=== PATIENT | male | born 1960 | race Caucasian/White ===

== ENCOUNTER 2020-12-24 09:54 | Inpatient (IN) | payer MEDICARE ==
[2020-12-24] MEDS ORDERED: SODIUM CHLORIDE 0.9% 500 ML 500 ML IV STA (12:29)
[2020-12-24] MEDS ORDERED: ALBUTEROL HFA INHALER INHALATION STA (12:29)
[2020-12-24] MEDS ORDERED: DEXAMETHASONE SOD PHOSPHATE 10 MG/ML 1 ML VIAL IV STA (12:30)
--- NOTE | 2020-12-24 13:11 | XR ---
EXAMINATION TYPE: XR chest 1V portable DATE OF EXAM: 12/24/2020 HISTORY: Shortness of breath. COMPARISON: None. TECHNIQUE: Single view of the chest is submitted. FINDINGS: Demonstrated are scattered senescent parenchymal change. Consolidation right upper lobe compatible with pneumonia or aspiration pneumonia. Mild strandy densit y left lower lobe. The heart is stable. Hilar and mediastinal structures are within normal limits. Degenerative changes are seen of the dorsal spine. IMPRESSION: 1. Consolidation right upper lobe compatible with pneumonia or aspiration pneumonia. Mild strandy de nsity left lower lobe.
[2020-12-24 13:18] LABS: Albumin 3.8 g/dL (3.5-5.0); Calcium 8.9 mg/dL (8.4-10.2); Total Bilirubin 0.9 mg/dL (0.2-1.3); Total Protein 6.9 g/dL (6.3-8.2)
[2020-12-24 13:21] LABS: INR 1.1 (<1.2); Partial Thromboplastin Time 30.5 sec (22.0-30.0); Prothrombin Time 11.1 sec (9.0-12.0)
[2020-12-24 13:31] LABS: HGB 18.2 gm/dL (13.0-17.5); MCH 29.4 pg (25.0-35.0); MCHC 33.8 g/dL (31.0-37.0); MCV 87.1 fL (80.0-100.0); Mean Platelet Volume 10.2; Platelet Count 137 k/uL (150-450); RDW 13.6 % (11.5-15.5); WBC 4.4 k/uL (3.8-10.6)
[2020-12-24] MEDS ORDERED: AZITHROMYCIN 500 MG in SODIUM CHLORIDE 0.9% 250 ML IVPB STA (13:31)
[2020-12-24] MEDS ORDERED: cefTRIAXone IN SWFI 1,000 MG/10 ML SYRINGE IVP STA (13:31)
[2020-12-24 13:32] LABS: Magnesium 1.9 mg/dL (1.6-2.3); Potassium 4.5 mmol/L (3.5-5.1)
--- NOTE | 2020-12-24 13:34 | ED ---
General Adult HPI - General Chief complaint: Shortness of Breath Stated complaint: Fever, CHARLES, laryngectomy Time Seen by Provider: 12/24/20 12:26 Source: patient, RN notes reviewed, old records reviewed Mode of arrival: wheelchair Limitations: no limitations - History of Present Illness Initial comments: 60-year-old male history of laryngeal cancer status post tracheostomy presenting for evaluation of cough, fever, dyspnea. Patient has had a known exposure to coronavirus. He has had increased symptoms over the past several days. He's had a productive cough with yellow-brown sputum. Patient has been vaccinated for coronavirus. - Related Data Home Medications Medication Instructions Recorded Confirmed Levothyroxine Sodium [Euthyrox] 88 mcg PO DAILY 12/24/20 12/24/20 Losartan Potassium [Cozaar] 50 mg PO DAILY 12/24/20 12/24/20 Omeprazole 40 mg PO DAILY 12/24/20 12/24/20 Allergies Allergy/AdvReac Type Severity Reaction Status Date / Time No Known Allergies Allergy Verified 12/24/20 13:28 Review of Systems ROS Statement: Those systems with pertinent positive or pertinent negative responses have been documented in the HPI. ROS Other: All systems not noted in ROS Statement are negative. Past Medical History Additional Past Medical History / Comment(s): larynectomy History of Any Multi-Drug Resistant Organisms: None Reported Past Surgical History: Hernia Repair Past Psychological History: No Psychological Hx Reported Smoking Status: Former smoker Past Alcohol Use History: None Reported Past Drug Use History: None Reported General Exam Limitations: no limitations General appearance: alert, in no apparent distress Head exam: Present: atraumatic, normocephalic Eye exam: Present: normal appearance, PERRL ENT exam: Present: normal exam Neck exam: Present: normal inspection. Absent: tenderness, meningismus Respiratory exam: Present: respiratory distress, wheezes, rhonchi, decreased breath sounds Cardiovascular Exam: Present: normal rhythm, tachycardia GI/Abdominal exam: Present: soft. Absent: distended, tenderness, guarding, rebound Extremities exam: Present: normal inspection, normal capillary refill. Absent: pedal edema, calf tenderness Neurological exam: Present: alert, oriented X3, CN II-XII intact. Absent: motor sensory deficit Psychiatric exam: Present: normal affect, normal mood Skin exam: Present: warm, dry, intact. Absent: cyanosis, diaphoretic Course Vital Signs 12/24/20 12:18 Temperature 99.2 F Pulse Rate 110 H Respiratory 18 Rate Blood Pressure 76/48 O2 Sat by Pulse 85 L Oximetry EKG Findings - EKG Comments: EKG Findings:: EKG: Sinus tachycardia, rate 111, tremor artifact, no ST segment elevation, SD interval 134, QRS duration 88, QTC 418 Medical Decision Making - Medical Decision Making 60-year-old male presenting with cough, fever, known exposure to coronavirus. X-ray performed showing bilateral pneumonia, worse consolidation in the right upper lung galvan concerning for possible bacterial pneumonia. Patient is given antibiotics in the emergency department, fluid resuscitation. He has an elevated hemoglobin and elevated creatinine, suspected degree of dehydration. His lactic acid is 5.5. He has a minimal troponin elevation which will be trended. Case discussed with Dr. Tran, who will admit. - Lab Data Result diagrams: 12/24/20 12:41 12/24/20 12:41 Lab Results 12/24/20 12/24/20 12/24/20 Range/Units 12:41 12:41 12:41 WBC 4.4 (3.8-10.6) k/uL RBC 6.20 H (4.30-5.90) m/uL Hgb 18.2 H (13.0-17.5) gm/dL Hct 54.0 H (39.0-53.0) % MCV 87.1 (80.0-100.0) fL MCH 29.4 (25.0-35.0) pg MCHC 33.8 (31.0-37.0) g/dL RDW 13.6 (11.5-15.5) % Plt Count 137 L (150-450) k/uL MPV 10.2 PT 11.1 (9.0-12.0) sec INR 1.1 (<1.2) APTT 30.5 H (22.0-30.0) sec Sodium 138 (137-145) mmol/L Potassium 4.5 (3.5-5.1) mmol/L Chloride 103 (98-107) mmol/L Carbon Dioxide 19 L (22-30) mmol/L Anion Gap 16 mmol/L BUN 32 H (9-20) mg/dL Creatinine 2.29 H (0.66-1.25) mg/dL Est GFR (CKD-EPI)AfAm 34 (>60 ml/min/1.73 sqM) Est GFR (CKD-EPI)NonAf 30 (>60 ml/min/1.73 sqM) Glucose 119 H (74-99) mg/dL Plasma Lactic Acid Shaun (0.7-2.0) mmol/L Calcium 8.9 (8.4-10.2) mg/dL Magnesium 1.9 (1.6-2.3) mg/dL Total Bilirubin 0.9 (0.2-1.3) mg/dL AST 116 H (17-59) U/L ALT 60 H (4-49) U/L Alkaline Phosphatase 61 (38-126) U/L Troponin I (0.000-0.034) ng/mL Total Protein 6.9 (6.3-8.2) g/dL Albumin 3.8 (3.5-5.0) g/dL Coronavirus (PCR) (Not Detectd) 12/24/20 12/24/20 12/24/20 Range/Units 12:41 12:41 12:41 WBC (3.8-10.6) k/uL RBC (4.30-5.90) m/uL Hgb (13.0-17.5) gm/dL Hct (39.0-53.0) % MCV (80.0-100.0) fL MCH (25.0-35.0) pg MCHC (31.0-37.0) g/dL RDW (11.5-15.5) % Plt Count (150-450) k/uL MPV PT (9.0-12.0) sec INR (<1.2) APTT (22.0-30.0) sec Sodium (137-145) mmol/L Potassium (3.5-5.1) mmol/L Chloride (98-107) mmol/L Carbon Dioxide (22-30) mmol/L Anion Gap mmol/L BUN (9-20) mg/dL Creatinine (0.66-1.25) mg/dL Est GFR (CKD-EPI)AfAm (>60 ml/min/1.73 sqM) Est GFR (CKD-EPI)NonAf (>60 ml/min/1.73 sqM) Glucose (74-99) mg/dL Plasma Lactic Acid Shaun 5.5 H* (0.7-2.0) mmol/L Calcium (8.4-10.2) mg/dL Magnesium (1.6-2.3) mg/dL Total Bilirubin (0.2-1.3) mg/dL AST (17-59) U/L ALT (4-49) U/L Alkaline Phosphatase (38-126) U/L Troponin I 0.038 H* (0.000-0.034) ng/mL Total Protein (6.3-8.2) g/dL Albumin (3.5-5.0) g/dL Coronavirus (PCR) Detected A (Not Detectd) Critical Care Time Critical Care Time: Yes Total Critical Care Time: 35 Disposition Clinical Impression: COPD (chronic obstructive pulmonary disease), Pneumonia, COVID-19, TETE (acute kidney injury) Disposition: ADMITTED IP TO THIS [facility] Condition: Serious Is patient prescribed a controlled substance at d/c from ED?: No Referrals: Diego Jones MD [Primary Care Provider] - 1-2 days Decision to Admit Reason: Admit from EC Decision Date: 12/24/20 Decision Time: 14:21
[2020-12-24] MEDS ORDERED: NALOXONE 0.4 MG/ML 1 ML VIAL IV PRN (14:17)
[2020-12-24] MEDS ORDERED: ACETAMINOPHEN TAB 325 MG TAB PO PRN (14:17)
[2020-12-24 14:28] LABS: Band Neutrophils % 15 %; Lymphocytes # (M) 0.22 k/uL (1.0-4.8); Metamyelocytes # (M) 0.26 k/uL (0); Metamyelocytes % 6 %; Monocytes # (M) 0.13 k/uL (0-1.0); Neutrophils % (M) 72 %; Nucleated Red Blood Cells 0 /100 WBC (0-0); Total Cells Counted 200
[2020-12-24] MEDS: SODIUM CHLORIDE 0.9% 1,000 ML IV SCH (14:44)
[2020-12-24] MEDS ORDERED: methylPREDNISolone SOD SUCCI 125 MG/2 ML VIAL IV SCH (16:00)
[2020-12-24] MEDS ORDERED: SODIUM CHLORIDE 0.9% 2,000 ML IV ONE (16:04)
--- NOTE | 2020-12-24 16:21 | P.HPIM ---
History of Present Illness H&P Date: 12/24/20 History of present illness 60 years old male with past medical history of laryngeal cancer status post laryngectomy and radiation in 2015 status post tracheostomy, history of hypothyroidism, COPD, hypertension comes in with acute shortness of breath associated with cough with phlegm production, reddish to brownish in color, associated with fever or chills and fatigue. Patient states his grandchildren were sick and he caught the infection from them. He also endorses right-sided chest pain on deep breath. Patient was noted to be afebrile pulse of 110 respiratory rate 18 blood pressure 76/48 oxygen saturation 85% on room air. Oxygen improved to 92% on trach ordered. EKG was obtained patient was sinus tachycardia no ST segment deviation noted with QTc interval of 418. Chest x-ray 12/24 suggestive of mild strandy density left lower lobe with was consolidation involving the right upper lung concerning for overlying bacterial pneumonia. Labs reviewed suggested of a visible 4.4 hemoglobin 18.2 platelets 137 INR 1.1 bicarb 19 BUN 32 creatinine 2.29, lactic acid of 5.5 AST 116 ALT 60 troponin 0.238. COVID is positive. We will give the patient will complete total 3 L IV bolus of normal saline. One dose of Rocephin and azithromycin. Neck ER. Pulmonary is consulted. Patient initiated on Solu-Medrol 60 every 6. DuoNeb will be continued as needed for shortness of breath. Patient will be initiated on remdesivir. Cardiology was consulted with increase in troponin. ROS Constitutional: Endorses chills, fever, increased lethargy and decreased appetite Denies weight loss Eyes: denies decreased vision, denies diplopia, denies discharge, denies pain Ears: deny: decreased hearing Ears, nose, mouth and throat: Denies dental pain, Denies headache, Denies nasal discharge, Denies nose pain endorses difficulty with speech since laryngectomy Cardiovascular: Endorses right-sided chest pain on deep breath, endorses decreased exercise tolerance, Denies edema, Denies high blood pressure, Denies irregular heart beat, endorses palpitations, Denies paroxysmal nocturnal dyspnea, Denies rapid heart beat, endorses shortness of breath Respiratory: Endorses congestion, endorses cough with sputum production and dyspnea, endorses wheezingnge in bowel habits, Denies coffee ground emesis, Denies early satiety, Denies excessive gas, Denies heartburn, Denies hematemesis, Denies hematochezia, Denies loss of appetite, Denies nausea, Denies vomiting Genitourinary: Denies dysuria, Denies flank pain, Denies kidney stones, Denies menorrhagia, Denies urgency, Denies urinary frequency Musculoskeletal: Denies gait dysfunction, Denies limitation of motion, Denies morning stiffness, Denies muscle cramps Integumentary: Denies rash, Denies wounds, Denies brittle nails, Denies change in hair/nails, Denies darkening of skin Neurological: Denies balance difficulties, Denies change in speech, Denies double vision, Denies gait dysfunction, Denies loss of vision, Denies motor disturbance, Denies numbness, Denies paralysis, Denies paresthesias, Denies seizures Psychiatric: Denies anxiety, Denies depression Endocrine: Denies excessive sweating, Denies excessive thirst, Denies high blood sugars, Denies palpitations Hematologic/Lymphatic: Denies easy bruising, Denies lymphadenopathy Social history lives with his used to smoke 1 pack a day for 40 years quit 5 years ago denies any alcohol use or marijuana use Family history mother had MS father had multiple heart attacks patient had 3 brothers one of AIDS, another from drug addiction, one brother had throat cancer. One sister of suicide Patient has 2 sons with no medical problem Physical exam - Constitutional General appearance: cooperatiappears in appears as stated age, with tracheostomy wearing trach collar - EENT Eyes: anicteric sclerae, PERRLA, normal appearance ENT: hearing grossly normal - Neck Neck: no lymphadenopathy, normal ROM, no other, no rigidity, no stridor, no thyromegaly - Respiratory Respiratory: bilateral decreased air entry with crackles and rhonchi worse involving right upper lung - Cardiovascular Rhythm: tachycardiceart sounds: normal: S1, S2 Abnormal Heart Sounds: no systolic murmur, no diastolic murmur, no rub, no S3 Gallop, no S4 Gallop, no click, no other - Gastrointestinal General gastrointestinal: normal bowel sounds, soft nontender - Integumentary Integumentary: no rash - Neurologic Neurologic: CNII-XII intact no motor or sensory deficit - Musculoskeletal Musculoskeletal: gait normal, strength equal bilaterally - Psychiatric Psychiatric: A&O x's 3, appropriate affect Assessment and plan #1 septic shock secondary to COVID pneumonia with possible overlying bacterial pneumonia. 3 L IV fluids normal saline given. Antibiotics ceftriaxone and azithromycin given. Patient initiated on Solu-Medrol 60 IV every 6. patient need to be started on remdesiver . Pulmonary consult. Sputum culture. DuoNeb as needed for shortness of breath. Mucinex 600 twice a day. Lactic acid repeat every 6 hours Pulmicort twice daily #2 COVID pneumonia , would benefit from remdesivir. Pulmicort twice daily. Vitamin D, zinc and vitamin C ordered. Pulmonary consulted for further management. Solu-Medrol initiated a 60 IV every 6 hours #3 acute COPD exacerbation Pulmicort twice daily inhaler, DuoNeb as needed for shortness of breath, incentive spirometry, sputum culture. Continue Solu-Medrol 60 IV every 6 hours #4 troponin elevation rule out ACS. EKG dated the first ST elevation depression. Likely type II myocardial infarction. Cardiology consulted. #5 hypothyroidism continue levothyroxine at 88 g by mouth daily #6 hypertension continue losartan 50 mg by mouth daily #7 GERD continue omeprazole 40 mg by mouth daily #8 history of laryngeal cancer status post laryngectomy and radiation . Has tracheostomy currently on trach collar #9 acute kidney injury on CK D3. Baseline creatinine not known. Continue IV fluids at 75 mL/h repeat labs tomorrow #10 acute transaminitis likely secondary to COVID infection. Continue to monitor. #11 metabolic acidosis secondary to sepsis. Continue IV fluids monitor labs #12 GI prophylaxis on omeprazole 40 mg by mouth daily #13 CODE STATUS full code #14 isolation droplet precautions for COVID #15 DVT prophylaxis heparin every 12 #16 disposition patient need hospital stay for at least 2 inpatient Past Medical History Additional Past Medical History / Comment(s): larynectomy History of Any Multi-Drug Resistant Organisms: None Reported Past Surgical History: Hernia Repair Past Psychological History: No Psychological Hx Reported Smoking Status: Former smoker Past Alcohol Use History: None Reported Past Drug Use History: None Reported Medications and Allergies Home Medications Medication Instructions Recorded Confirmed Type Levothyroxine Sodium [Euthyrox] 88 mcg PO DAILY 12/24/20 12/24/20 History Losartan Potassium [Cozaar] 50 mg PO DAILY 12/24/20 12/24/20 History Omeprazole 40 mg PO DAILY 12/24/20 12/24/20 History Allergies Allergy/AdvReac Type Severity Reaction Status Date / Time No Known Allergies Allergy Verified 12/24/20 13:28 Physical Exam Vitals: Vital Signs Temp Pulse Resp BP Pulse Ox 12/24/20 14:46 104 H 22 97/62 90 L 12/24/20 12:18 99.2 F 110 H 18 76/48 85 L Intake and Output 12/24/20 12/24/20 12/24/20 06:59 14:59 22:59 Other: Weight 103.419 kg Results CBC & Chem 7: 12/24/20 12:41 12/24/20 12:41 Labs: Abnormal Lab Results - Last 24 Hours (Table) 12/24/20 12/24/20 12/24/20 Range/Units 12:41 12:41 12:41 RBC 6.20 H (4.30-5.90) m/uL Hgb 18.2 H (13.0-17.5) gm/dL Hct 54.0 H (39.0-53.0) % Plt Count 137 L (150-450) k/uL Lymphocytes # (Manual) 0.22 L (1.0-4.8) k/uL Metamyelocytes # (Man) 0.26 H (0) k/uL APTT 30.5 H (22.0-30.0) sec Carbon Dioxide 19 L (22-30) mmol/L BUN 32 H (9-20) mg/dL Creatinine 2.29 H (0.66-1.25) mg/dL Glucose 119 H (74-99) mg/dL Plasma Lactic Acid Shaun (0.7-2.0) mmol/L AST 116 H (17-59) U/L ALT 60 H (4-49) U/L Troponin I (0.000-0.034) ng/mL Coronavirus (PCR) (Not Detectd) 12/24/20 12/24/20 12/24/20 Range/Units 12:41 12:41 12:41 RBC (4.30-5.90) m/uL Hgb (13.0-17.5) gm/dL Hct (39.0-53.0) % Plt Count (150-450) k/uL Lymphocytes # (Manual) (1.0-4.8) k/uL Metamyelocytes # (Man) (0) k/uL APTT (22.0-30.0) sec Carbon Dioxide (22-30) mmol/L BUN (9-20) mg/dL Creatinine (0.66-1.25) mg/dL Glucose (74-99) mg/dL Plasma Lactic Acid Shaun 5.5 H* (0.7-2.0) mmol/L AST (17-59) U/L ALT (4-49) U/L Troponin I 0.038 H* (0.000-0.034) ng/mL Coronavirus (PCR) Detected A (Not Detectd)
[2020-12-24] MEDS: CHOLECALCIFEROL 25 MCG (1000 IU) TABLET PO SCH (17:24)
[2020-12-24] MEDS: ASCORBIC ACID 500 MG TAB PO SCH (17:24)
[2020-12-24] MEDS: ZINC SULFATE 220 MG CAP PO SCH (17:24)
[2020-12-24 17:42] LABS: C Reactive Protein 35.7 mg/dL (<1.0)
[2020-12-24] MEDS ORDERED: PIPERACILLIN-TAZOBACTAM 3.375 GM in SODIUM CHLORIDE 0.9% 100 ML IVPB SCH (17:45)
[2020-12-24 18:14] LABS: Glucose,Whole Blood 85 mg/dL (75-99)
--- NOTE | 2020-12-24 18:20 | P.CNPUL ---
History of Present Illness Consult date: 12/24/20 Requesting physician: Shirin Tran Reason for consult: dyspnea, hypoxemia, pneumonia, abnormal CXR/CT Chief complaint: COVID-19 pneumonia, acute hypoxic resp. failure, aspiration pneumonia History of present illness: This is a 60-year-old white male patient past medical history of laryngeal ca ncer (squamous cell carcinoma) with history of laryngectomy and radiation in 2015, status post tracheostomy, history of hypothyroidism, COPD, hypertension. Patient came into the emergency department on 12/24/2020 for evaluation of acute shortness of breath, associated with cough and phlegm production. He is producing reddish to brownish colored phlegm, he had fever, chills and fatigue. Patient states one of his grandchildren was sick, and he believes he may have caught the infection from them. He endorses right-sided chest pain with a deep inspiration. In the emergency department since he was hypotensive with blood pressure of 76/48, and his pulse ox was 70% on room air. He currently has a non-cuffed cannula this inserted into his tracheotomy opening in his neck, he was placed on 92% trach collar, however his pulse ox is still 83%. Patient is audibly congested and short of breath. He is using accessory muscles of breathing. He is using of voice box to respond verbally, he is tachycardic on the monitor, but in sinus mechanism. His chest x-ray showed mild strandy density at the left lower lobe with consolidation involving the right upper lung concerning for bacterial pneumonia possibly aspiration related pneumonia. His labs showed white blood cell count of 4.4, hemoglobin of 18.2, platelets of 137, INR 1.1, BUN of 32, creatinine of 2.29, lactic acid was 5.5, AST was 116, ALT was 60, troponin was 0.238. COVID-19 PCR was positive. Patient was started on fluid resuscitation and will be given a total of 3 L and IV fluid boluses. He was initially started on Rocephin and azithromycin in the emergency department. He was started on IV Solu-Medrol 60 g every 6 hours and nebulized bronchodilators. Is currently still requiring high flow oxygen per trach collar, still remains very hypoxic, and short of breath. He will be transferred to the ICU, and the tracheostomy will be placed and patient will be placed on the mechanical ventilator. Review of Systems All systems: negative Constitutional: Reports fatigue, Reports fever, Reports weakness, Denies chills Eyes: denies blurred vision, denies pain Ears, nose, mouth and throat: Denies headache, Denies sore throat Cardiovascular: Denies chest pain, Denies shortness of breath Respiratory: Reports congestion, Reports cough with sputum, Reports dyspnea, Denies cough Gastrointestinal: Denies abdominal pain, Denies diarrhea, Denies nausea, Denies vomiting Musculoskeletal: Denies myalgias Integumentary: Denies pruritus, Denies rash Neurological: Denies numbness, Denies weakness Psychiatric: Denies anxiety, Denies depression Endocrine: Denies fatigue, Denies weight change Past Medical History Additional Past Medical History / Comment(s): larynectomy History of Any Multi-Drug Resistant Organisms: None Reported Past Surgical History: Hernia Repair Past Psychological History: No Psychological Hx Reported Smoking Status: Former smoker Past Alcohol Use History: None Reported Past Drug Use History: None Reported Medications and Allergies Home Medications Medication Instructions Recorded Confirmed Type Levothyroxine Sodium [Euthyrox] 88 mcg PO DAILY 12/24/20 12/24/20 History Losartan Potassium [Cozaar] 50 mg PO DAILY 12/24/20 12/24/20 History Omeprazole 40 mg PO DAILY 12/24/20 12/24/20 History Allergies Allergy/AdvReac Type Severity Reaction Status Date / Time No Known Allergies Allergy Verified 12/24/20 13:28 Physical Exam Vitals: Vital Signs Temp Pulse Resp BP Pulse Ox 12/24/20 17:30 133 H 33 H 135/85 85 L 12/24/20 17:07 133 H 30 H 85 L 12/24/20 16:40 122 H 18 104/42 86 L 12/24/20 14:46 104 H 22 97/62 90 L 12/24/20 12:18 99.2 F 110 H 18 76/48 85 L Intake and Output 12/24/20 12/24/20 12/24/20 06:59 14:59 22:59 Other: Weight 103.419 kg GENERAL EXAM: Alert, very pleasant, dyspneic, 60-year-old white male, tachypneic, audibly congested, he is using a voice box to communicate, comfortable in no apparent distress. HEAD: Normocephalic/atraumatic. EYES: Normal reaction of pupils, equal size. Conjunctiva pink, sclera white. NOSE: Clear with pink turbinates. THROAT: No erythema or exudates. NECK: No masses, no JVD, no thyroid enlargement, no adenopathy. Midline tracheotomy is present, with the non-cuffed cannula, patient removes for cleaning, is currently on 98% trach collar, with a pulse ox of 83% CHEST: No chest wall deformity. Symmetrical expansion. LUNGS: Equal air entry with diffuse rhonchi and wheezing and crackles CVS: Regular rate and rhythm, normal S1 and S2, no gallops, no murmurs, no rubs ABDOMEN: Soft, nontender. No hepatosplenomegaly, normal bowel sounds, no guarding or rigidity. EXTREMITIES: No clubbing, no edema, no cyanosis, 2+ pulses and upper and lower extremities. MUSCULOSKELETAL: Muscle strength and tone normal. SPINE: No scoliosis or deformity SKIN: No rashes CENTRAL NERVOUS SYSTEM: Alert and oriented -3. No focal deficits, tone is normal in all 4 extremities. PSYCHIATRIC: Alert and oriented -3. Appropriate affect. Intact judgment and insight. Results - Laboratory Findings CBC and BMP: 12/24/20 12:41 12/24/20 12:41 PT/INR, D-dimer PT 11.1 sec (9.0-12.0) 12/24/20 12:41 INR 1.1 (<1.2) 12/24/20 12:41 Abnormal lab findings: Abnormal Labs 12/24/20 12/24/20 12/24/20 12:41 12:41 12:41 RBC 6.20 H Hgb 18.2 H Hct 54.0 H Plt Count 137 L Lymphocytes # (Manual) 0.22 L Metamyelocytes # (Man) 0.26 H ESR APTT 30.5 H Carbon Dioxide 19 L BUN 32 H Creatinine 2.29 H Glucose 119 H Plasma Lactic Acid Shaun AST 116 H ALT 60 H Lactate Dehydrogenase Troponin I C-Reactive Protein Coronavirus (PCR) 12/24/20 12/24/20 12/24/20 12:41 12:41 12:41 RBC Hgb Hct Plt Count Lymphocytes # (Manual) Metamyelocytes # (Man) ESR APTT Carbon Dioxide BUN Creatinine Glucose Plasma Lactic Acid Shaun 5.5 H* AST ALT Lactate Dehydrogenase Troponin I 0.038 H* C-Reactive Protein Coronavirus (PCR) Detected A 10/25/21 10/25/21 10/25/21 16:18 16:33 16:33 RBC Hgb Hct Plt Count Lymphocytes # (Manual) Metamyelocytes # (Man) ESR APTT Carbon Dioxide BUN Creatinine Glucose Plasma Lactic Acid Shaun 5.5 H* AST ALT Lactate Dehydrogenase 1067 H Troponin I 0.061 H* C-Reactive Protein 35.7 H Coronavirus (PCR) 12/24/20 16:33 RBC Hgb Hct Plt Count Lymphocytes # (Manual) Metamyelocytes # (Man) ESR 18 H APTT Carbon Dioxide BUN Creatinine Glucose Plasma Lactic Acid Shaun AST ALT Lactate Dehydrogenase Troponin I C-Reactive Protein Coronavirus (PCR) - Diagnostic Findings Chest x-ray: report reviewed, image reviewed Additional studies: EKG reviewed Assessment and Plan Plan: Assessment: #1. Acute hypoxic respiratory failure, multifactorial, related to with suspected to be aspiration pneumonia, or bacterial pneumonia in addition to COVID-19 pneumonia, onset of symptoms was several days ago. The time of presentation patient is already and severe hypoxic respiratory failure, and in addition aspiration pneumonia is also suspected, not a good candidate for Remdesivir. he tested positive for COVID-19 in the ER. He status post completed vaccination with Moderna vaccine in May 2020 #2. History of laryngectomy for laryngeal cancer (squamous cell carcinoma), status post laryngectomy and radiation in 2014 status post tracheostomy #3. Lactic acidosis related to sepsis, we being fluid resuscitated #4. Septic shock related to pneumonia possibly related to aspiration #5. Acute kidney injury #6. Troponin leak #7. History of COPD #8. Hypertension #9. Hypothyroidism Plan: We'll transfer the patient to the intensive care unit We'll place tracheostomy and we'll put the patient on mechanical ventilator We'll put the patient on sedation continue fluid resuscitation We'll put the patient on Zosyn, patient is not a candidate for Remdesivir GI and DVT prophylaxis Blood gas, follow-up labs and chest x-ray in the morning We'll continue to follow I performed a history & physical examination of the patient and discussed their management with my nurse practitioner, Beth Harris. I reviewed the nurse practitioner's note and agree with the documented findings and plan of care. Lung sounds are positive for diffuse wheezes throughout the lung galvan. The findings and the impression was discussed with the patient. I attest to the documentation by the nurse practitioner. Time with Patient: Greater than 30
[2020-12-24] MEDS ORDERED: CISATRACURIUM 2 MG/ML 5 ML VIAL IV ONE ×2 (18:39→19:00)
[2020-12-24] MEDS ORDERED: HYDROmorphone 1 MG/ML 1 ML SYRINGE IVP PRN (18:52)
--- NOTE | 2020-12-24 19:09 | XR ---
EXAMINATION TYPE: XR chest 1V portable DATE OF EXAM: 12/24/2020 COMPARISON: Today HISTORY: Respiratory failure. Tube placement. TECHNIQUE: Single view FINDINGS: There is endotracheal tube and the tip is well into the right lower lobe bronchus. There is tip 4.5 cm past the didi. There is extensive consolidation right upper lobe. There is some atelect asis and infiltrate in the left lung with shift of heart to the left side. There are chest leads. IMPRESSION: Malposition of the endotracheal tube in the right lower lobe bronchus. There is significa nt new atelectasis in the left lung with infiltrate. No change in the right upper lobe infiltrate.
--- NOTE | 2020-12-24 19:10 | XR ---
EXAMINATION TYPE: XR chest 1V portable DATE OF EXAM: 12/24/2020 COMPARISON: Today HISTORY: Tube placement TECHNIQUE: Single view FINDINGS: Endotracheal tube is in contact with the didi in the right lower lobe bronchus. There is consolidation right upper lobe. There is some infiltrate and atelectasis in the left lung. IMPRESSION: Slight improvement in the infiltrate and atelectasis in the left lung. Malposition of the endotracheal tube at the right mainstem bronchus.
--- NOTE | 2020-12-24 19:12 | XR ---
EXAMINATION TYPE: XR chest 1V portable DATE OF EXAM: 12/24/2020 COMPARISON: Today HISTORY: Tube placement TECHNIQUE: Single view FINDINGS: Endotracheal tube is 5 mm from the didi. There is consolidation in the right upper lobe. There is some infiltrate and atelectasis left lung with some shift of the heart to the left side. No obvious heart failure. IMPRESSION: Bilateral pulmonary infiltrates. Endotracheal tube is low and should BE pulled back 3 cm.
[2020-12-24] MEDS: CHLORHEXIDINE GLUCONATE 15 ML CUP MUCOUS MEM SCH (19:46)
[2020-12-24] MEDS: ENOXAPARIN 40 MG/0.4 ML SYRINGE SQ SCH (19:46)
[2020-12-24] MEDS: methylPREDNISolone SOD SUCCI 125 MG/2 ML VIAL IV SCH (19:49)
[2020-12-24] MEDS ORDERED: BUDESONIDE 0.5 MG/2 ML NEBU INHALATION SCH (20:00)
[2020-12-24] MEDS ORDERED: IPRATROPIUM-ALBUTEROL 3 ML NEB INHALATION SCH (20:00)
[2020-12-24] MEDS: CISATRACURIUM 200 MG in SODIUM CHLORIDE 0.9% 180 ML IV SCH (20:12)
[2020-12-24 20:21] LABS: ABG Base Excess -11.1 mmol/L; ABG HCO3 17 mmol/L (21-25); ABG Oxygen Saturation 90.7 % (94-97); ABG PCO2 47 mmHg (35-45); ABG PO2 76 mmHg (83-108); Allen Test Performed? Yes
[2020-12-24] MEDS ORDERED: SODIUM BICARB 8.4% 50 ML SYR (1 MEQ/ML) IV STA (20:30)
[2020-12-24] MEDS ORDERED: NOREPINEPHRIN 4 MG-0.9% NS PMX 4 MG/250 ML ML IV ONE (20:37)
[2020-12-24] MEDS: NOREPINEPHRINE 4 MG in SODIUM CHLORIDE 0.9% 250 ML IV SCH ×2 (20:41→23:15)
[2020-12-24 20:42] LABS: ABG PH 7.19 (7.35-7.45)
[2020-12-24] MEDS ORDERED: SODIUM CHLORIDE 0.9% 1,000 ML IV ONE (20:47)
[2020-12-24] MEDS ORDERED: guaiFENesin 600 MG TABLET.ER PO SCH (21:00)
[2020-12-24] MEDS: fentaNYL (PF). 1,000 MCG in SODIUM CHLORIDE 0.9% 80 ML IV SCH (21:40)
[2020-12-24] MEDS: NOREPINEPHRINE 8 MG in SODIUM CHLORIDE 0.9% 250 ML IV SCH (23:30)
--- NOTE | 2020-12-24 23:36 | P.ANPRN ---
Procedure Note - Anesthesia - Invasive Line Left Central Line Time Out Performed: Yes Date of Procedure: 12/24/20 Preparation: Sterile Prep, Sterile Dressing Ultrasound Used: Yes Purpose - Visualization and Identification of Vasculature: Yes Image Stored and Saved: Yes Narrative: Central line placement per sterile protocol utilized. Ultrasound used to identify the femoral vessels. Under ultrasound guidance femoral venous central line attempted on the right side, but unable to pass the guidewire. Under ultrasound guidance femoral arterial line attempted, but unable to pass the guidewire freely so procedure abandoned. Pressure applied over the groin area for 5 minutes. Entire procedure repeated under sterile conditions with new central line kit on left femoral area.. On the left side under ultrasound guidance femoral venous central line placed. Secured with suture , Biopatch applied, and Central line adhesive dressing placed. Attempted left side femoral A-line, unable to pass the guidewire. So procedure abandoned.
[2020-12-25 00:02] LABS: Glucose,Whole Blood 75 mg/dL (75-99)
[2020-12-25] MEDS ORDERED: VANCOMYCIN IV PER PHARMACY 1 EACH MISC MISCELLANE PRN (00:29)
[2020-12-25] MEDS: SODIUM CHLORIDE 0.9% 150 ML with VASOPRESSIN 60 UNIT IV SCH ×2 (00:30)
[2020-12-25] MEDS ORDERED: VANCOMYCIN 2,000 MG in SODIUM CHLORIDE 0.9% 500 ML 500 ML IVPB ONE (01:00)
[2020-12-25] MEDS: methylPREDNISolone SOD SUCCI 125 MG/2 ML VIAL IV SCH ×5 (01:00→23:56)
[2020-12-25] MEDS: NOREPINEPHRINE 8 MG in SODIUM CHLORIDE 0.9% 250 ML IV SCH ×5 (01:31→09:13)
[2020-12-25] MEDS: PIPERACILLIN-TAZOBACTAM 3.375 GM in SODIUM CHLORIDE 0.9% 100 ML IVPB SCH ×3 (04:18→20:14)
[2020-12-25] MEDS: LEVOTHYROXINE 88 MCG TAB PO SCH (05:15)
[2020-12-25 05:27] LABS: HCT 51.5 % (39.0-53.0); HGB 16.1 gm/dL (13.0-17.5); Hypochromasia Slight; MCH 29.9 pg (25.0-35.0); MCHC 31.3 g/dL (31.0-37.0); Mean Platelet Volume 9.8; Platelet Count 177 k/uL (150-450); RDW 13.6 % (11.5-15.5); WBC 11.3 k/uL (3.8-10.6)
[2020-12-25 05:36] LABS: MCV 95.4 fL (80.0-100.0)
[2020-12-25 05:39] LABS: Albumin 2.5 g/dL (3.5-5.0); Total Bilirubin 0.9 mg/dL (0.2-1.3); Total Protein 5.2 g/dL (6.3-8.2)
[2020-12-25 06:04] LABS: Potassium 6.2 mmol/L (3.5-5.1)
[2020-12-25] MEDS: CISATRACURIUM 200 MG in SODIUM CHLORIDE 0.9% 180 ML IV SCH ×2 (06:08→15:42)
[2020-12-25 06:16] LABS: C Reactive Protein 39.3 mg/dL (<1.0)
[2020-12-25] MEDS ORDERED: SODIUM BICARB 8.4% 50 ML SYR (1 MEQ/ML) IV STA ×2 (06:19→08:12)
[2020-12-25] MEDS ORDERED: DEXTROSE 50% SYRINGE 50 ML IVP STA (06:19)
--- NOTE | 2020-12-25 06:26 | XR ---
EXAMINATION TYPE: XR chest 1V portable DATE OF EXAM: 12/25/2020 CLINICAL HISTORY: Difficulty breathing progress study. TECHNIQUE: Single AP portable semiupright view of the chest is obtained. COMPARISON: Chest x-ray from one day earlier FINDINGS: Stable low-lying endotracheal tube at level of didi. Advise pulling back approximately 4 cm. Confluent reticulonodular opacities right upper lung redemonstrated. Patchy reticulonodular left greater than right bibasilar opacities again seen. Cardiac silhouette size stable and within normal limits. Osseous structures are intact. Surgical clips supraclavicular region redemonstrated. IMPRESSION: Stable low lying endotracheal tube. Advise pulling back 4 cm. Confluent right upper lung reticulonodular opacity and left greater than right bibasilar opacities redemonstrated without signif icant interval change.
[2020-12-25] MEDS ORDERED: CALCIUM GLUCONATE 1 GM in SODIUM CHLORIDE 0.9% 100 ML IVPB ONE (06:30)
[2020-12-25] MEDS ORDERED: INSULIN REGULAR 100 UNIT/ML VIAL (IV) IV ONE (06:30)
[2020-12-25] MEDS ORDERED: PANTOPRAZOLE 40 MG TABLET PO SCH (07:30)
[2020-12-25 07:52] LABS: Allen Test Performed? Yes
[2020-12-25 07:55] LABS: ABG Base Excess -13.1 mmol/L; ABG HCO3 16 mmol/L (21-25); ABG Oxygen Saturation 97.3 % (94-97); ABG PCO2 48 mmHg (35-45); ABG PO2 112 mmHg (83-108)
[2020-12-25 08:04] LABS: ABG PH 7.15 (7.35-7.45)
[2020-12-25] MEDS: fentaNYL (PF). 1,000 MCG in SODIUM CHLORIDE 0.9% 80 ML IV SCH ×2 (08:26→20:45)
[2020-12-25] MEDS: DEXTROSE 5% IN WATER 1,000 ML with SODIUM BICARB (1 MEQ/ML) 150 ML IV SCH ×3 (08:27→20:15)
[2020-12-25] MEDS: ASCORBIC ACID 500 MG TAB PO SCH ×2 (08:39→20:15)
[2020-12-25] MEDS: CHOLECALCIFEROL 25 MCG (1000 IU) TABLET PO SCH (08:39)
[2020-12-25] MEDS: ZINC SULFATE 220 MG CAP PO SCH (08:40)
[2020-12-25] MEDS: PANTOPRAZOLE 40 MG/10 ML VIAL IVP SCH (08:45)
[2020-12-25] MEDS: CHLORHEXIDINE GLUCONATE 15 ML CUP MUCOUS MEM SCH ×2 (08:45→20:14)
[2020-12-25] MEDS: ENOXAPARIN 40 MG/0.4 ML SYRINGE SQ SCH (08:45)
[2020-12-25] MEDS ORDERED: LOSARTAN 50 MG TAB PO SCH (09:00)
[2020-12-25 09:28] LABS: Calcium 6.3 mg/dL (8.4-10.2); Potassium 4.8 mmol/L (3.5-5.1)
[2020-12-25] MEDS: NOREPINEPHRINE 32 MG in SODIUM CHLORIDE 0.9% 218 ML IV SCH (10:45)
[2020-12-25 11:02] LABS: Band Neutrophils % 36 %; Lymphocytes # (M) 0.57 k/uL (1.0-4.8); Metamyelocytes # (M) 2.49 k/uL (0); Metamyelocytes % 22 %; Monocytes # (M) 0.45 k/uL (0-1.0); Myelocytes # (M) 1.24 k/uL (0); Myelocytes % 11 %; Neutrophils % (M) 22 %; Nucleated Red Blood Cells 0 /100 WBC (0-0); Total Cells Counted 100
[2020-12-25 11:28] LABS: Glucose,Whole Blood 197 mg/dL (75-99)
[2020-12-25] MEDS: INSULIN ASPART (NovoLOG) 100 UNIT/ML VIAL SQ SCH ×3 (11:52→23:57)
--- NOTE | 2020-12-25 11:52 | XR ---
EXAMINATION TYPE: XR chest 1V portable DATE OF EXAM: 12/25/2020 CLINICAL HISTORY: NG tube placement. TECHNIQUE: Single AP portable supine view of the chest is obtained. COMPARISON: Chest x-ray from earlier today FINDINGS: Single portable supine image of the lower thorax and upper abdomen shows distal aspect of nasogastric tube projecting below diaphragm, satisfactory in position. IMPRESSION: As above.
--- NOTE | 2020-12-25 13:36 | OP ---
OPERATIVE REPORT OPERATIVE REPORT: Placement of a right radial arterial line. PREOPERATIVE DIAGNOSIS: Acute sepsis and bacteremia with hypotension. POSTOPERATIVE DIAGNOSIS: Acute sepsis and bacteremia with hypotension. ANESTHESIA USED: None deployed. PROCEDURE DESCRIPTION: The right wrist was prepared in a sterile fashion. Drapes were applied. The right radial artery was palpated, cannulated, and a guidewire was placed. A Cook's catheter was inserted over the guidewire, and the guidewire was removed. Good blood flow and good waveform were noted; no evidence of any complications. Line was secured using 3.0 silk sutures. MMODL / IJN: [id number] /
--- NOTE | 2020-12-25 14:55 | P.PN ---
Subjective Progress Note Date: 12/25/20 Principal diagnosis: Acute hypoxic respiratory failure secondary to: 19 pneumonia, possible aspiration pneumonia, and septic shock with bacteremia This is a 60-year-old white male patient past medical history of laryngeal cancer (squamous cell carcinoma) with history of laryngectomy and radiation in 2015, status post tracheostomy, history of hypothyroidism, COPD, hypertension. Patient came into the emergency department on 12/24/2020 for evaluation of acute shortness of breath, associated with cough and phlegm production. He is producing reddish to brownish colored phlegm, he had fever, chills and fatigue. Patient states one of his grandchildren was sick, and he believes he may have caught the infection from them. He endorses right-sided chest pain with a deep inspiration. In the emergency department since he was hypotensive with blood pressure of 76/48, and his pulse ox was 70% on room air. He currently has a non-cuffed cannula this inserted into his tracheotomy opening in his neck, he was placed on 92% trach collar, however his pulse ox is still 83%. Patient is audibly congested and short of breath. He is using accessory muscles of breathing. He is using of voice box to respond verbally, he is tachycardic on the monitor, but in sinus mechanism. His chest x-ray showed mild strandy density at the left lower lobe with consolidation involving the right upper lung concerning for bacterial pneumonia possibly aspiration related pneumonia. His labs showed white blood cell count of 4.4, hemoglobin of 18.2, platelets of 137, INR 1.1, BUN of 32, creatinine of 2.29, lactic acid was 5.5, AST was 116, ALT was 60, troponin was 0.238. COVID-19 PCR was positive. Patient was started on fluid resuscitation and will be given a total of 3 L and IV fluid boluses. He was initially started on Rocephin and azithromycin in the emergency department. He was started on IV Solu-Medrol 60 g every 6 hours and nebulized bronchodilators. Is currently still requiring high flow oxygen per trach collar, still remains very hypoxic, and short of breath. He will be transferred to the ICU, and the tracheostomy will be placed and patient will be placed on the mechanical ventilator. Patient was reevaluated today on 12/25/20, patient remains intubated and mechanically ventilated. His ventilator settings are assist control rate of 34 volume 450 FiO2 90% and we cut it down to 70%, PEEP is at 12. ABG showed a pO2 of 112 pCO2 48 pH of 7.15. Patient remains on bicarb drip, norepinephrine at 0.5 mcg/kg/m, Nimbex, and vasopressin. To maintain adequate blood pressure. Patient received earlier this morning sodium bicarb and received fluid boluses total of 5 L since admission. Blood cultures came back positive for gram- positive cocci. Identification is pending. In the meantime the patient is on antibiotics in the form of Zosyn and vancomycin. Labs today were reviewed, electrolytes are normal renal profile is about the same compared to yesterday with a BUN of 40 creatinine 2.65, lactic acid is 4.0 this morning. And blood sugar is 197. Chest x-ray shows right upper lobe reticular nodular opacity and left lower lobe as well as right lower lobe bibasilar opacities. Objective - Vital Signs Vital signs: Vital Signs Temp 97.7 F 12/25/20 12:00 Pulse 86 12/25/20 12:00 Resp 34 H 12/25/20 12:00 BP 129/81 12/25/20 12:00 Pulse Ox 93 L 12/25/20 12:00 Intake & Output 12/24/20 12/25/20 12/25/20 18:59 06:59 18:59 Intake Total 2264.129 1160.546 Output Total 195 250 Balance 2069.129 910.546 Weight 103.419 kg 101.6 kg 101.6 kg Intake: IV 825 684 .9 825 175 Dextrose 5% in Water 1, 500 000 ml @ 100 mls/hr IV . [id number] BUCK with Sodium Bicarb (1 Meq/ml) 150 ml Rx#:[id number] Pressure Bag 9 Intake, IV Titration 1439.129 476.546 Amount Cisatracurium 200 mg In 156.677 Sodium Chloride 0.9% 180 ml @ 1 MCG/KG/MIN 6.205 mls/hr IV .Q24H BUCK Rx#: [id number] Norepinephrine 32 mg In 39.688 Sodium Chloride 0.9% 218 ml @ 0.5 MCG/KG/MIN 23. 813 mls/hr IV .[id number] BUCK Rx#:[id number] Norepinephrine 4 mg In 254.000 Sodium Chloride 0.9% 250 ml @ 0.05 MCG/KG/MIN 19. 701 mls/hr IV .[id number] BUCK Rx#:[id number] Norepinephrine 8 mg In 1014.940 242.974 Sodium Chloride 0.9% 250 ml @ 0.05 MCG/KG/MIN 10. 006 mls/hr IV .Q24H BUCK Rx#:[id number] Piperacillin-Tazobactam 3 100 .375 gm In Sodium Chloride 0.9% 100 ml @ 25 mls/hr IVPB Q8H BUCK Rx#: [id number] fentaNYL (PF). 1,000 mcg 9.394 90.606 In Sodium Chloride 0.9% 80 ml @ 0.5 MCG/KG/HR 5. 171 mls/hr IV .[id number] BUCK Rx#:[id number] propofoL 1,000 mg In 4.118 3.278 Empty Bag 1 bag @ Titrate IV .Q0M BUCK Rx#: [id number] Output: Urine 195 250 Other: Voiding Method Indwelling Catheter Indwelling Catheter # Voids 1 ABP, PAP, CO, CI - Last Documented Arterial Blood Pressure 86/58 - Exam GENERAL EXAM: Revealed a 60-year-old white male intubated, sedated, and paralyzed. On mechanical ventilation.. HEAD: Normocephalic/atraumatic. EENT PERRLA, EOMI, anicteric, no neck masses, no JVD. NECK: Surgical changes noted in the neck, endotracheal tube noted in the tracheostomy, connected to mechanical ventilation. CHEST: No chest wall deformity. Symmetrical expansion. LUNGS: Crackles and rhonchi at the bases. CVS: Regular rate and rhythm, normal S1 and S2, no gallops, no murmurs, no rubs ABDOMEN: Soft, nontender. No hepatosplenomegaly, normal bowel sounds, no guarding or rigidity. EXTREMITIES: No clubbing, no edema, no cyanosis, 2+ pulses and upper and lower extremities. MUSCULOSKELETAL: Muscle strength and tone normal. SKIN: No rashes CENTRAL NERVOUS SYSTEM: Cannot assess, patient is sedated and paralyzed. PSYCHIATRIC: Not assessed patient is sedated and paralyzed. - Labs CBC & Chem 7: 12/25/20 04:44 12/25/20 08:25 Labs: Abnormal Lab Results - Last 24 Hours (Table) 12/24/20 12/24/20 12/24/20 Range/Units 16:18 16:33 16:33 WBC (3.8-10.6) k/uL Lymphocytes # (Manual) (1.0-4.8) k/uL Metamyelocytes # (Man) (0) k/uL Myelocytes # (Manual) (0) k/uL ESR (0-15) mm/hr D-Dimer (<0.60) mg/L FEU ABG pH (7.35-7.45) ABG pCO2 (35-45) mmHg ABG pO2 (83-108) mmHg ABG HCO3 (21-25) mmol/L ABG O2 Saturation (94-97) % Potassium (3.5-5.1) mmol/L Chloride (98-107) mmol/L Carbon Dioxide (22-30) mmol/L BUN (9-20) mg/dL Creatinine (0.66-1.25) mg/dL Glucose (74-99) mg/dL POC Glucose (mg/dL) (75-99) mg/dL Plasma Lactic Acid Shaun 5.5 H* (0.7-2.0) mmol/L Calcium (8.4-10.2) mg/dL AST (17-59) U/L Lactate Dehydrogenase 1067 H (313-618) U/L Troponin I 0.061 H* (0.000-0.034) ng/mL C-Reactive Protein 35.7 H (<1.0) mg/dL Total Protein (6.3-8.2) g/dL Albumin (3.5-5.0) g/dL Procalcitonin (0.02-0.09) ng/mL 12/24/20 12/24/20 12/24/20 Range/Units 16:33 16:33 19:24 WBC (3.8-10.6) k/uL Lymphocytes # (Manual) (1.0-4.8) k/uL Metamyelocytes # (Man) (0) k/uL Myelocytes # (Manual) (0) k/uL ESR 18 H (0-15) mm/hr D-Dimer (<0.60) mg/L FEU ABG pH (7.35-7.45) ABG pCO2 (35-45) mmHg ABG pO2 (83-108) mmHg ABG HCO3 (21-25) mmol/L ABG O2 Saturation (94-97) % Potassium (3.5-5.1) mmol/L Chloride (98-107) mmol/L Carbon Dioxide (22-30) mmol/L BUN (9-20) mg/dL Creatinine (0.66-1.25) mg/dL Glucose (74-99) mg/dL POC Glucose (mg/dL) (75-99) mg/dL Plasma Lactic Acid Shaun 3.9 H* (0.7-2.0) mmol/L Calcium (8.4-10.2) mg/dL AST (17-59) U/L Lactate Dehydrogenase (313-618) U/L Troponin I (0.000-0.034) ng/mL C-Reactive Protein (<1.0) mg/dL Total Protein (6.3-8.2) g/dL Albumin (3.5-5.0) g/dL Procalcitonin 40.50 H (0.02-0.09) ng/mL 12/24/20 12/24/20 12/25/20 Range/Units 20:10 20:14 04:44 WBC 11.3 H (3.8-10.6) k/uL Lymphocytes # (Manual) 0.57 L (1.0-4.8) k/uL Metamyelocytes # (Man) 2.49 H (0) k/uL Myelocytes # (Manual) 1.24 H (0) k/uL ESR (0-15) mm/hr D-Dimer (<0.60) mg/L FEU ABG pH 7.19 L* (7.35-7.45) ABG pCO2 47 H (35-45) mmHg ABG pO2 76 L (83-108) mmHg ABG HCO3 17 L (21-25) mmol/L ABG O2 Saturation 90.7 L (94-97) % Potassium (3.5-5.1) mmol/L Chloride (98-107) mmol/L Carbon Dioxide (22-30) mmol/L BUN (9-20) mg/dL Creatinine (0.66-1.25) mg/dL Glucose (74-99) mg/dL POC Glucose (mg/dL) (75-99) mg/dL Plasma Lactic Acid Shaun (0.7-2.0) mmol/L Calcium (8.4-10.2) mg/dL AST (17-59) U/L Lactate Dehydrogenase (313-618) U/L Troponin I 0.100 H* (0.000-0.034) ng/mL C-Reactive Protein (<1.0) mg/dL Total Protein (6.3-8.2) g/dL Albumin (3.5-5.0) g/dL Procalcitonin (0.02-0.09) ng/mL 12/25/20 12/25/20 12/25/20 Range/Units 04:44 04:44 07:45 WBC (3.8-10.6) k/uL Lymphocytes # (Manual) (1.0-4.8) k/uL Metamyelocytes # (Man) (0) k/uL Myelocytes # (Manual) (0) k/uL ESR (0-15) mm/hr D-Dimer 1.92 H (<0.60) mg/L FEU ABG pH 7.15 L* (7.35-7.45) ABG pCO2 48 H (35-45) mmHg ABG pO2 112 H (83-108) mmHg ABG HCO3 16 L (21-25) mmol/L ABG O2 Saturation 97.3 H (94-97) % Potassium 6.2 H* (3.5-5.1) mmol/L Chloride 114 H (98-107) mmol/L Carbon Dioxide 11 L (22-30) mmol/L BUN 39 H (9-20) mg/dL Creatinine 2.64 H (0.66-1.25) mg/dL Glucose 117 H (74-99) mg/dL POC Glucose (mg/dL) (75-99) mg/dL Plasma Lactic Acid Shaun (0.7-2.0) mmol/L Calcium 7.0 L (8.4-10.2) mg/dL AST 141 H (17-59) U/L Lactate Dehydrogenase 1973 H (313-618) U/L Troponin I (0.000-0.034) ng/mL C-Reactive Protein 39.3 H (<1.0) mg/dL Total Protein 5.2 L (6.3-8.2) g/dL Albumin 2.5 L (3.5-5.0) g/dL Procalcitonin (0.02-0.09) ng/mL 12/25/20 12/25/20 12/25/20 Range/Units 08:25 08:25 11:26 WBC (3.8-10.6) k/uL Lymphocytes # (Manual) (1.0-4.8) k/uL Metamyelocytes # (Man) (0) k/uL Myelocytes # (Manual) (0) k/uL ESR (0-15) mm/hr D-Dimer (<0.60) mg/L FEU ABG pH (7.35-7.45) ABG pCO2 (35-45) mmHg ABG pO2 (83-108) mmHg ABG HCO3 (21-25) mmol/L ABG O2 Saturation (94-97) % Potassium (3.5-5.1) mmol/L Chloride 114 H (98-107) mmol/L Carbon Dioxide 17 L (22-30) mmol/L BUN 40 H (9-20) mg/dL Creatinine 2.65 H (0.66-1.25) mg/dL Glucose 185 H (74-99) mg/dL POC Glucose (mg/dL) 197 H (75-99) mg/dL Plasma Lactic Acid Shaun 4.0 H* (0.7-2.0) mmol/L Calcium 6.3 L* (8.4-10.2) mg/dL AST (17-59) U/L Lactate Dehydrogenase (313-618) U/L Troponin I (0.000-0.034) ng/mL C-Reactive Protein (<1.0) mg/dL Total Protein (6.3-8.2) g/dL Albumin (3.5-5.0) g/dL Procalcitonin (0.02-0.09) ng/mL Microbiology - Last 24 Hours (Table) 12/24/20 14:41 Blood Culture Gram Stain - Preliminary Blood 12/24/20 14:41 Blood Culture - Final Blood 12/24/20 14:25 Blood Culture Gram Stain - Preliminary Blood 12/24/20 14:25 Blood Culture - Final Blood Assessment and Plan Assessment: Impression: Acute hypoxic respiratory failure secondary to acute COVID-19 pneumonia, suspect aspiration pneumonia or Streptococcus pneumonia, and gram-positive bacteremia. Septic shock secondary to above. History of laryngeal cancer and previous laryngectomy followed by radiation treatment in 2015. And the tracheostomy. Acute lactic acidosis secondary to sepsis and septic shock. Acute kidney injury secondary to sepsis and septic shock. Acute troponin leak. History of COPD. History of hypothyroidism. History of hypertension. Recommendation: Continue ventilatory support. Continue nutritional support. Continue blood pressure support/pressors and fluids. Continue antibiotics including Zosyn and vancomycin, and adjust antibiotics accordingly after the final cultures. Patient is not a candidate for redesivir and definitely not a candidate for baricitinib Continue COVID-19 cocktail. Continue GI and DVT prophylaxis. Continue to monitor daily x-rays and daily labs. Continue bronchodilators. Prognosis is definitely guarded. Critical care time is over 30 minutes. Not including the time spent on procedures. We will continue to follow. Time with Patient: Greater than 30
--- NOTE | 2020-12-25 15:50 | P.PN ---
Subjective Progress Note Date: 12/25/20 History of present illness 60 years old male with past medical history of laryngeal cancer status post laryngectomy and radiation in 2015 status post tracheostomy, history of hypothyroidism, COPD, hypertension comes in with acute shortness of breath associated with cough with phlegm production, reddish to brownish in color, associated with fever or chills and fatigue. Patient states his grandchildren were sick and he caught the infection from them. He also endorses right-sided chest pain on deep breath. Patient was noted to be afebrile pulse of 110 respiratory rate 18 blood pressure 76/48 oxygen saturation 85% on room air. Oxygen improved to 92% on trach ordered. EKG was obtained patient was sinus tachycardia no ST segment deviation noted with QTc interval of 418. Chest x-ray 12/24 suggestive of mild strandy density left lower lobe with was consolidation involving the right upper lung concerning for overlying bacterial pneumonia. Labs reviewed suggested of a visible 4.4 hemoglobin 18.2 platelets 137 INR 1.1 bicarb 19 BUN 32 creatinine 2.29, lactic acid of 5.5 AST 116 ALT 60 troponin 0.238. COVID is positive. We will give the patient will complete total 3 L IV bolus of normal saline. One dose of Rocephin and azithromycin. Neck ER. Pulmonary is consulted. Patient initiated on Solu-Medrol 60 every 6. DuoNeb will be continued as needed for shortness of breath. Patient will be initiated on remdesivir. Cardiology was consulted with increase in troponin. 12/25 Patient is seen today on 12/25. Patient got intubated yesterday 12/19 5 in the evening as unable to maintain oxygenation on trach collar. Patient was placed on mechanical ventilator with the settings of assist control rate of 34 tidal volume 450 FiO2 90% and PEEP of 12. ABG was obtained with a pH of 7.15 pCO2 48 pO2 112. Patient started on norepinephrine drip, vasopressin drip, propofol, fentanyl, Pneumovax and and bicarb drip. NG tube will be placed today to help with intestinal feeding. Blood cultures are positive for gram-positive cocci. Antibiotics patient from ceftriaxone and azithromycin to Zosyn and vancomycin. Labs were reviewed, patient has a WBC 11.3 hemoglobin 16 platelet 177 chloride 114 bicarb 17 BUN 40 creatinine 2.65, glucose 185 lactic acid of 4 calcium 6.3. Review of system Could not be obtained patient is intubated Physical exam - Constitutional General appearance: Intubated with tracheostomy - EENT Eyes: anicteric sclerae, PERRLA, normal appearance ENT: hearing grossly normal - Neck Neck: no lymphadenopathy, normal ROM, no other, no rigidity, no stridor, no thyromegaly - Respiratory Respiratory: bilateral decreased air entry with crackles and rhonchi worse involving right upper lung - Cardiovascular Rhythm: tachycardic heart sounds: normal: S1, S2 Abnormal Heart Sounds: no systolic murmur, no diastolic murmur, no rub, no S3 Gallop, no S4 Gallop, no click, no other - Gastrointestinal General gastrointestinal: normal bowel sounds, soft nontender - Integumentary Integumentary: no rash - Neurologic Neurologic: Couldn't be obtained as sedated - Musculoskeletal Musculoskeletal: No agitation strength equal bilaterally - Psychiatric Psychiatric: Sedated appropriate affect Assessment and plan #1 septic shock secondary to COVID pneumonia with possible overlying bacterial pneumonia. One blood culture positive for gram-positive cocci 3 L IV fluids normal saline given. Rocephin and azithromycin discontinued and switched to Zosyn and vancomycin. Patient initiated on Solu-Medrol 60 IV every 6. Not not a candidate for remdesiver . Pulmonary consult. Sputum culture. DuoNeb as needed for shortness of breath. Mucinex 600 twice a day. Lactic acid repeat every 6 hours Pulmicort twice daily #2 acute hypoxic respiratory failure mechanically ventilated through tracheostomy since 12/24 secondary to COVID and superimposed bacterial pneumonia not a candidate for remdesivir. Pulmicort twice daily. Vitamin D, zinc and vitamin C ordered. Pulmonary consulted for further management. Solu-Medrol 60 IV every 6 hours #3 acute COPD exacerbation Pulmicort twice daily inhaler, DuoNeb as needed for shortness of breath, incentive spirometry, sputum culture. Continue Solu-Medrol 60 IV every 6 hours #4 troponin elevation rule out ACS. EKG dated the first ST elevation depression. Likely type II myocardial infarction. Cardiology consulted. #5 hypothyroidism continue levothyroxine at 88 g by mouth daily #6 hypertension continue losartan 50 mg by mouth daily #7 hypocalcemia 1 g calcium gluconate ordered #[id number] continue omeprazole 40 mg by mouth daily #9 history of laryngeal cancer status post laryngectomy and radiation . Has tracheostomy currently on trach collar #10 acute kidney injury on CK D3. Baseline creatinine not known. On bicarb drip #111 acute transaminitis likely secondary to COVID infection. Continue to monitor. #12 metabolic acidosis secondary to sepsis. On bicarb drip at 100 mL/h Continue IV fluids monitor labs #13 GI prophylaxis on omeprazole 40 mg by mouth dailyy #14 CODE STATUS full code #15 isolation droplet precautions for COVID #16 DVT prophylaxis heparin every 12 #17 disposition guarded prognosis Objective - Vital Signs Vital signs: Vital Signs Temp 97.7 F 12/25/20 12:00 Pulse 86 12/25/20 14:30 Resp 34 H 12/25/20 14:30 BP 110/62 12/25/20 14:30 Pulse Ox 93 L 12/25/20 14:30 Intake & Output 12/24/20 12/25/20 12/25/20 18:59 06:59 18:59 Intake Total 2264.129 1406.546 Output Total 195 310 Balance 2069.129 1096.546 Weight 103.419 kg 101.6 kg 101.6 kg Intake: IV 825 930 .9 825 215 Dextrose 5% in Water 1, 700 000 ml @ 100 mls/hr IV . [id number] BUCK with Sodium Bicarb (1 Meq/ml) 150 ml Rx#:[id number] Pressure Bag 15 Intake, IV Titration 1439.129 476.546 Amount Cisatracurium 200 mg In 156.677 Sodium Chloride 0.9% 180 ml @ 1 MCG/KG/MIN 6.205 mls/hr IV .Q24H [facility] Rx#: [id number] Norepinephrine 32 mg In 39.688 Sodium Chloride 0.9% 218 ml @ 0.5 MCG/KG/MIN 23. 813 mls/hr IV .[id number] [facility]CK Rx#:[id number] Norepinephrine 4 mg In 254.000 Sodium Chloride 0.9% 250 ml @ 0.05 MCG/KG/MIN 19. 701 mls/hr IV .[id number] [facility] Rx#:[id number] Norepinephrine 8 mg In 1014.940 242.974 Sodium Chloride 0.9% 250 ml @ 0.05 MCG/KG/MIN 10. 006 mls/hr IV .Q24H [facility] Rx#:[id number] Piperacillin-Tazobactam 3 100 .375 gm In Sodium Chloride 0.9% 100 ml @ 25 mls/hr IVPB Q8H [facility] Rx#: [id number] fentaNYL (PF). 1,000 mcg 9.394 90.606 In Sodium Chloride 0.9% 80 ml @ 0.5 MCG/KG/HR 5. 171 mls/hr IV .[id number] [facility] Rx#:[id number] propofoL 1,000 mg In 4.118 3.278 Empty Bag 1 bag @ Titrate IV .Q0M [facility] Rx#: [id number] Output: Urine 195 310 Other: Voiding Method Indwelling Catheter Indwelling Catheter # Voids 1 ABP, PAP, CO, CI - Last Documented Arterial Blood Pressure 75/47 - Labs CBC & Chem 7: 12/25/20 04:44 12/25/20 08:25 Labs: Abnormal Lab Results - Last 24 Hours (Table) 12/24/20 12/24/20 12/24/20 Range/Units 16:18 16:33 16:33 WBC (3.8-10.6) k/uL Lymphocytes # (Manual) (1.0-4.8) k/uL Metamyelocytes # (Man) (0) k/uL Myelocytes # (Manual) (0) k/uL ESR (0-15) mm/hr D-Dimer (<0.60) mg/L FEU ABG pH (7.35-7.45) ABG pCO2 (35-45) mmHg ABG pO2 (83-108) mmHg ABG HCO3 (21-25) mmol/L ABG O2 Saturation (94-97) % Potassium (3.5-5.1) mmol/L Chloride (98-107) mmol/L Carbon Dioxide (22-30) mmol/L BUN (9-20) mg/dL Creatinine (0.66-1.25) mg/dL Glucose (74-99) mg/dL POC Glucose (mg/dL) (75-99) mg/dL Plasma Lactic Acid Shaun 5.5 H* (0.7-2.0) mmol/L Calcium (8.4-10.2) mg/dL AST (17-59) U/L Lactate Dehydrogenase 1067 H (313-618) U/L Troponin I 0.061 H* (0.000-0.034) ng/mL C-Reactive Protein 35.7 H (<1.0) mg/dL Total Protein (6.3-8.2) g/dL Albumin (3.5-5.0) g/dL Procalcitonin (0.02-0.09) ng/mL 12/24/20 12/24/20 12/24/20 Range/Units 16:33 16:33 19:24 WBC (3.8-10.6) k/uL Lymphocytes # (Manual) (1.0-4.8) k/uL Metamyelocytes # (Man) (0) k/uL Myelocytes # (Manual) (0) k/uL ESR 18 H (0-15) mm/hr D-Dimer (<0.60) mg/L FEU ABG pH (7.35-7.45) ABG pCO2 (35-45) mmHg ABG pO2 (83-108) mmHg ABG HCO3 (21-25) mmol/L ABG O2 Saturation (94-97) % Potassium (3.5-5.1) mmol/L Chloride (98-107) mmol/L Carbon Dioxide (22-30) mmol/L BUN (9-20) mg/dL Creatinine (0.66-1.25) mg/dL Glucose (74-99) mg/dL POC Glucose (mg/dL) (75-99) mg/dL Plasma Lactic Acid Shaun 3.9 H* (0.7-2.0) mmol/L Calcium (8.4-10.2) mg/dL AST (17-59) U/L Lactate Dehydrogenase (313-618) U/L Troponin I (0.000-0.034) ng/mL C-Reactive Protein (<1.0) mg/dL Total Protein (6.3-8.2) g/dL Albumin (3.5-5.0) g/dL Procalcitonin 40.50 H (0.02-0.09) ng/mL 12/24/20 12/24/20 12/25/20 Range/Units 20:10 20:14 04:44 WBC 11.3 H (3.8-10.6) k/uL Lymphocytes # (Manual) 0.57 L (1.0-4.8) k/uL Metamyelocytes # (Man) 2.49 H (0) k/uL Myelocytes # (Manual) 1.24 H (0) k/uL ESR (0-15) mm/hr D-Dimer (<0.60) mg/L FEU ABG pH 7.19 L* (7.35-7.45) ABG pCO2 47 H (35-45) mmHg ABG pO2 76 L (83-108) mmHg ABG HCO3 17 L (21-25) mmol/L ABG O2 Saturation 90.7 L (94-97) % Potassium (3.5-5.1) mmol/L Chloride (98-107) mmol/L Carbon Dioxide (22-30) mmol/L BUN (9-20) mg/dL Creatinine (0.66-1.25) mg/dL Glucose (74-99) mg/dL POC Glucose (mg/dL) (75-99) mg/dL Plasma Lactic Acid Shaun (0.7-2.0) mmol/L Calcium (8.4-10.2) mg/dL AST (17-59) U/L Lactate Dehydrogenase (313-618) U/L Troponin I 0.100 H* (0.000-0.034) ng/mL C-Reactive Protein (<1.0) mg/dL Total Protein (6.3-8.2) g/dL Albumin (3.5-5.0) g/dL Procalcitonin (0.02-0.09) ng/mL 12/25/20 12/25/20 12/25/20 Range/Units 04:44 04:44 07:45 WBC (3.8-10.6) k/uL Lymphocytes # (Manual) (1.0-4.8) k/uL Metamyelocytes # (Man) (0) k/uL Myelocytes # (Manual) (0) k/uL ESR (0-15) mm/hr D-Dimer 1.92 H (<0.60) mg/L FEU ABG pH 7.15 L* (7.35-7.45) ABG pCO2 48 H (35-45) mmHg ABG pO2 112 H (83-108) mmHg ABG HCO3 16 L (21-25) mmol/L ABG O2 Saturation 97.3 H (94-97) % Potassium 6.2 H* (3.5-5.1) mmol/L Chloride 114 H (98-107) mmol/L Carbon Dioxide 11 L (22-30) mmol/L BUN 39 H (9-20) mg/dL Creatinine 2.64 H (0.66-1.25) mg/dL Glucose 117 H (74-99) mg/dL POC Glucose (mg/dL) (75-99) mg/dL Plasma Lactic Acid Shaun (0.7-2.0) mmol/L Calcium 7.0 L (8.4-10.2) mg/dL AST 141 H (17-59) U/L Lactate Dehydrogenase 1973 H (313-618) U/L Troponin I (0.000-0.034) ng/mL C-Reactive Protein 39.3 H (<1.0) mg/dL Total Protein 5.2 L (6.3-8.2) g/dL Albumin 2.5 L (3.5-5.0) g/dL Procalcitonin (0.02-0.09) ng/mL 12/25/20 12/25/20 12/25/20 Range/Units 08:25 08:25 11:26 WBC (3.8-10.6) k/uL Lymphocytes # (Manual) (1.0-4.8) k/uL Metamyelocytes # (Man) (0) k/uL Myelocytes # (Manual) (0) k/uL ESR (0-15) mm/hr D-Dimer (<0.60) mg/L FEU ABG pH (7.35-7.45) ABG pCO2 (35-45) mmHg ABG pO2 (83-108) mmHg ABG HCO3 (21-25) mmol/L ABG O2 Saturation (94-97) % Potassium (3.5-5.1) mmol/L Chloride 114 H (98-107) mmol/L Carbon Dioxide 17 L (22-30) mmol/L BUN 40 H (9-20) mg/dL Creatinine 2.65 H (0.66-1.25) mg/dL Glucose 185 H (74-99) mg/dL POC Glucose (mg/dL) 197 H (75-99) mg/dL Plasma Lactic Acid Shaun 4.0 H* (0.7-2.0) mmol/L Calcium 6.3 L* (8.4-10.2) mg/dL AST (17-59) U/L Lactate Dehydrogenase (313-618) U/L Troponin I (0.000-0.034) ng/mL C-Reactive Protein (<1.0) mg/dL Total Protein (6.3-8.2) g/dL Albumin (3.5-5.0) g/dL Procalcitonin (0.02-0.09) ng/mL Microbiology - Last 24 Hours (Table) 12/24/20 14:41 Blood Culture Gram Stain - Preliminary Blood 12/24/20 14:41 Blood Culture - Final Blood 12/24/20 14:25 Blood Culture Gram Stain - Preliminary Blood 12/24/20 14:25 Blood Culture - Final Blood
[2020-12-25] MEDS: SODIUM CHLORIDE 0.9% 1,000 ML IV SCH ×2 (15:59)
[2020-12-25 17:53] LABS: Glucose,Whole Blood 171 mg/dL (75-99)
[2020-12-25 19:58] LABS: ABG Base Excess -5.8 mmol/L; ABG HCO3 21 mmol/L (21-25); ABG Oxygen Saturation 96.1 % (94-97); ABG PCO2 45 mmHg (35-45); ABG PH 7.28 (7.35-7.45); ABG PO2 90 mmHg (83-108); Allen Test Performed? Yes
[2020-12-25] MEDS ORDERED: VANCOMYCIN 2,000 MG in SODIUM CHLORIDE 0.9% 500 ML 500 ML IVPB SCH (21:00)
[2020-12-25 23:54] LABS: Glucose,Whole Blood 270 mg/dL (75-99)
[2020-12-26] MEDS: CISATRACURIUM 200 MG in SODIUM CHLORIDE 0.9% 180 ML IV SCH ×3 (01:22→22:23)
[2020-12-26] MEDS: NOREPINEPHRINE 32 MG in SODIUM CHLORIDE 0.9% 218 ML IV SCH ×3 (02:16→17:51)
[2020-12-26] MEDS: SODIUM CHLORIDE 0.9% 150 ML with VASOPRESSIN 60 UNIT IV SCH ×2 (03:44)
[2020-12-26 04:55] LABS: Glucose,Whole Blood 267 mg/dL (75-99)
[2020-12-26] MEDS: PIPERACILLIN-TAZOBACTAM 3.375 GM in SODIUM CHLORIDE 0.9% 100 ML IVPB SCH ×3 (04:57→23:00)
[2020-12-26] MEDS: INSULIN ASPART (NovoLOG) 100 UNIT/ML VIAL SQ SCH ×4 (05:00→23:09)
[2020-12-26] MEDS: methylPREDNISolone SOD SUCCI 125 MG/2 ML VIAL IV SCH ×4 (05:05→23:00)
[2020-12-26 05:24] LABS: HCT 40.5 % (39.0-53.0); HGB 14.1 gm/dL (13.0-17.5); Platelet Count 137 k/uL (150-450); RBC 4.57 m/uL (4.30-5.90); RDW 14.2 % (11.5-15.5); WBC 10.7 k/uL (3.8-10.6)
[2020-12-26 05:24] LABS: ABG HCO3 23 mmol/L (21-25); ABG Oxygen Saturation 94.8 % (94-97); ABG PCO2 46 mmHg (35-45); ABG PH 7.32 (7.35-7.45); ABG PO2 78 mmHg (83-108); Allen Test Performed? Yes
[2020-12-26 05:37] LABS: MCV 88.5 fL (80.0-100.0)
[2020-12-26 05:39] LABS: Total Bilirubin 1.1 mg/dL (0.2-1.3); Total Protein 4.3 g/dL (6.3-8.2)
[2020-12-26] MEDS: LEVOTHYROXINE 88 MCG TAB PO SCH (06:04)
[2020-12-26 06:16] LABS: C Reactive Protein 56.2 mg/dL (<1.0)
[2020-12-26 06:49] LABS: Band Neutrophils % 38 %; Lymphocytes # (M) 0.32 k/uL (1.0-4.8); Metamyelocytes # (M) 0.11 k/uL (0); Metamyelocytes % 1 %; Monocytes # (M) 0.11 k/uL (0-1.0); Neutrophils % (M) 59 %; Nucleated Red Blood Cells 0 /100 WBC (0-0); Total Cells Counted 200
[2020-12-26 06:50] LABS: Anisocytosis (M) Present
--- NOTE | 2020-12-26 07:45 | XR ---
EXAMINATION TYPE: XR chest 1V portable DATE OF EXAM: 12/26/2020 COMPARISON: 12/25/2020 INDICATION: Tube placement TECHNIQUE: Single frontal view of the chest is obtained. FINDINGS: The heart size is normal. The pulmonary vasculature is indistinct. There is a diffuse infiltrate through the right upper lung field. A left lower lobe infiltrate is pre sent. Findings are worsening. Additional infiltrate is within remaining portions of the lung. Endotracheal tube tip is 2 cm above the didi. Nasogastric tube transverses the thorax IMPRESSION: 1. Diffuse increased lung markings greater in the right upper and left lower lobes. 2. Lines and catheters discussed above
[2020-12-26] MEDS: CHLORHEXIDINE GLUCONATE 15 ML CUP MUCOUS MEM SCH ×2 (08:36→20:12)
[2020-12-26] MEDS: CHOLECALCIFEROL 25 MCG (1000 IU) TABLET PO SCH (08:36)
[2020-12-26] MEDS: ASCORBIC ACID 500 MG TAB PO SCH ×2 (08:36→20:12)
[2020-12-26] MEDS: ENOXAPARIN 40 MG/0.4 ML SYRINGE SQ SCH (08:36)
[2020-12-26] MEDS: PANTOPRAZOLE 40 MG/10 ML VIAL IVP SCH (08:37)
[2020-12-26] MEDS: fentaNYL (PF). 1,000 MCG in SODIUM CHLORIDE 0.9% 80 ML IV SCH ×2 (08:57→19:03)
[2020-12-26] MEDS: ZINC SULFATE 220 MG CAP PO SCH (09:00)
[2020-12-26] MEDS ORDERED: VANCOMYCIN IV PER PHARMACY 1 EACH MISC MISCELLANE PRN (09:33)
[2020-12-26] MEDS ORDERED: FUROSEMIDE 10 MG/ML 4 ML VIAL IV SCH (09:45)
[2020-12-26 11:47] LABS: Glucose,Whole Blood 173 mg/dL (75-99)
[2020-12-26] MEDS ORDERED: FUROSEMIDE 10 MG/ML 10 ML VIAL IV STA (12:35)
[2020-12-26] MEDS ORDERED: CALCIUM GLUCONATE 2 GM in SODIUM CHLORIDE 0.9% 100 ML IVPB ONE (12:40)
--- NOTE | 2020-12-26 12:42 | P.NPCON ---
History of Present Illness - Reason for Consult acute renal failure - History of Present Illness Reason for consultation: Acute kidney injury History of present illness: The patient is a 60-year-old male seen in renal consultation for acute kidney injury. Patient's creatinine on admission was 2.2 and is up to 4.17 today. Unknown baseline renal function. Patient has history of laryngeal cancer and is status post tracheostomy few years back. Patient presented to the hospital with fever and cough. He tested positive for coronavirus. Blood cultures were also positive for gram-positive cocci. He is on antibiotics. Patient did receive several liters of IV fluid bolus it was also maintained on bicarb drip up until this morning. IV Lasix was added this morning. He received 40 mg IV Lasix this morning with no response and urine output. Urine output is about 10-20 mL an hour. He is on Levophed as well as vasopressin. He is receiving tube feeds. Vital signs are stable. On vasopressor support. HEENT: Tracheostomy noted. LUNGS: Breath sounds decreased. HEART: Rate and Rhythm are regular. ABDOMEN: Soft, no distention. EXTREMITITES: No edema. Past Medical History Past Medical History: Cancer Additional Past Medical History / Comment(s): laryngectomy with radiation 2014 History of Any Multi-Drug Resistant Organisms: None Reported Past Surgical History: Hernia Repair Past Anesthesia/Blood Transfusion Reactions: No Reported Reaction Past Psychological History: No Psychological Hx Reported Smoking Status: Former smoker Past Alcohol Use History: None Reported Past Drug Use History: None Reported Medications and Allergies Home Medications Medication Instructions Recorded Confirmed Type Levothyroxine Sodium [Euthyrox] 88 mcg PO DAILY 12/24/20 12/24/20 History Losartan Potassium [Cozaar] 50 mg PO DAILY 12/24/20 12/24/20 History Omeprazole 40 mg PO DAILY 12/24/20 12/24/20 History Allergies Allergy/AdvReac Type Severity Reaction Status Date / Time No Known Allergies Allergy Verified 12/24/20 13:28 Physical Exam Vitals: Vital Signs Temp Pulse Resp BP Pulse Ox 12/26/20 11:30 76 34 H 113/68 91 L 12/26/20 11:00 77 34 H 97/59 91 L 12/26/20 10:30 75 34 H 116/74 91 L 12/26/20 10:00 76 34 H 119/75 91 L 12/26/20 09:30 76 34 H 104/63 90 L 12/26/20 09:00 76 34 H 111/69 90 L 12/26/20 08:30 78 34 H 99/60 90 L 12/26/20 08:00 99.3 F 80 34 H 107/66 89 L 12/26/20 07:30 80 34 H 104/64 91 L 12/26/20 07:00 78 34 H 111/67 91 L 12/26/20 06:30 81 34 H 124/74 92 L 12/26/20 06:00 79 33 H 91/57 89 L 12/26/20 05:30 77 34 H 94/59 91 L 12/26/20 05:00 76 34 H 110/67 91 L 12/26/20 04:30 78 34 H 104/65 92 L 12/26/20 04:00 79 34 H 103/62 91 L 12/26/20 03:30 79 34 H 106/66 92 L 12/26/20 03:00 78 34 H 99/61 93 L 12/26/20 02:30 77 34 H 76/53 92 L 12/26/20 02:00 78 34 H 100/62 92 L 12/26/20 01:30 77 34 H 105/64 92 L 12/26/20 01:00 79 35 H 94/60 93 L 12/26/20 00:30 79 34 H 101/62 93 L 12/26/20 00:19 79 34 H 107/69 93 L 12/26/20 00:00 99.4 F 81 34 H 94 L 12/25/20 23:30 80 34 H 93 L 12/25/20 23:00 80 34 H 127/84 91 L 12/25/20 22:30 81 34 H 110/64 94 L 12/25/20 22:00 81 34 H 87/56 94 L 12/25/20 21:30 82 34 H 97/63 92 L 12/25/20 21:00 82 34 H 108/68 93 L 12/25/20 20:30 82 34 H 100/65 93 L 12/25/20 20:00 99.2 F 82 34 H 105/62 94 L 12/25/20 19:30 84 34 H 103/67 94 L 12/25/20 19:00 84 34 H 98/62 94 L 12/25/20 18:30 83 34 H 95/62 94 L 12/25/20 18:00 84 34 H 95/59 94 L 12/25/20 17:30 84 34 H 101/61 94 L 12/25/20 17:00 84 34 H 99/67 95 12/25/20 16:30 84 34 H 96/62 94 L 12/25/20 16:00 99.9 F H 85 23 97/60 93 L 12/25/20 15:30 86 34 H 93 L 12/25/20 15:00 82 34 H 122/77 94 L 12/25/20 14:30 86 34 H 110/62 93 L 12/25/20 14:00 84 34 H 131/80 94 L 12/25/20 13:30 82 34 H 125/73 94 L 12/25/20 13:00 84 34 H 119/73 94 L Intake and Output 12/25/20 12/26/20 12/26/20 22:59 06:59 14:59 Intake Total 3059.748 0082.565 886.250 Output Total 215 100 60 Balance 4369.031 7568.565 826.250 Intake: IV 984 984 415 .9 160 160 100 Dextrose 5% in Water 1, 800 800 300 000 ml @ 100 mls/hr IV . [id number] BUCK with Sodium Bicarb (1 Meq/ml) 150 ml Rx#:[id number] Pressure Bag 24 24 15 Intake, IV Titration 411.408 351.565 243.250 Amount Cisatracurium 200 mg In 177.153 179.945 200 Sodium Chloride 0.9% 180 ml @ 1 MCG/KG/MIN 6.205 mls/hr IV .Q24H [facility] Rx#: [id number] Norepinephrine 32 mg In 129.535 68.249 39.894 Sodium Chloride 0.9% 218 ml @ 0.5 MCG/KG/MIN 23. 813 mls/hr IV .[id number] [facility] Rx#:[id number] fentaNYL (PF). 1,000 mcg 100 100 In Sodium Chloride 0.9% 80 ml @ 0.5 MCG/KG/HR 5. 171 mls/hr IV .[id number] [facility] Rx#:[id number] propofoL 1,000 mg In 4.720 3.371 3.356 Empty Bag 1 bag @ Titrate IV .Q0M [facility] Rx#: [id number] Tube Feeding 108 108 Other 30 120 Output: Urine 215 100 60 Other: Voiding Method Indwelling Catheter Indwelling Catheter Indwelling Catheter ABP, PAP, CO, CI - Last 8 Hours Arterial Blood Pressure 90/51 Arterial Blood Pressure 89/50 Arterial Blood Pressure 80/47 Arterial Blood Pressure 101/56 Arterial Blood Pressure 105/54 Arterial Blood Pressure 90/48 Arterial Blood Pressure 100/51 Arterial Blood Pressure 86/46 Arterial Blood Pressure 102/52 Arterial Blood Pressure 110/55 Results - Lab Results Most recent lab results ABG pH 7.32 (7.35-7.45) L 12/26/20 05:15 ABG pCO2 46 mmHg (35-45) H 12/26/20 05:15 ABG pO2 78 mmHg (83-108) L 12/26/20 05:15 ABG HCO3 23 mmol/L (21-25) 12/26/20 05:15 ABG O2 Saturation 94.8 % (94-97) 12/26/20 05:15 Calcium 6.0 mg/dL (8.4-10.2) L* 12/26/20 04:50 Magnesium 1.9 mg/dL (1.6-2.3) 12/24/20 12:41 12/26/20 04:50 12/26/20 04:50 Assessment and Plan Plan: Assessment: 1. Acute kidney injury secondary to ATN secondary to septic shock. Creatinine 2.2 on admission and is 4.1 today. Oliguric. Unknown baseline renal function. 2. Septic shock secondary to gram-positive bacteremia as well as COVID-19 infection. On Levophed and vasopressin. 3. Metabolic acidosis secondary to acute kidney injury status post bicarb drip. Improved. 4. History of laryngeal cancer status post tracheostomy. 5. Hypocalcemia secondary to acute kidney injury. Corrected calcium 7.6. Plan: Lasix 80 mg IV once today. Maintain tube feeds. Wean FiO2 and vasopressors. Replace calcium. Check renal ultrasound. Continue to monitor renal function and urine output. If no response to IV Lasix, will need renal replacement therapy. Discussed with the nurse. will be contacted. Check phosphorus level. Thank you for the consultation. I will continue to follow the patient with you during his hospital stay.
--- NOTE | 2020-12-26 14:02 | US ---
EXAMINATION TYPE: US kidneys/renal and bladder DATE OF EXAM: 12/26/2020 COMPARISON: NONE CLINICAL HISTORY: jason. Covid intubated ICU pt EXAM MEASUREMENTS: Right Kidney: 11.1 x 6.3 x 5.6cm Left Kidney: 10.4 x 4.3 x 6.1cm Right Kidney: No hydronephrosis or masses seen Left Kidney: No hydronephrosis or masses seen Bladder: jain cath, not seen IMPRESSION: Normal renal ultrasound
--- NOTE | 2020-12-26 14:12 | P.PN ---
Subjective Progress Note Date: 12/26/20 History of present illness 60 years old male with past medical history of laryngeal cancer status post laryngectomy and radiation in 2015 status post tracheostomy, history of hypothyroidism, COPD, hypertension comes in with acute shortness of breath associated with cough with phlegm production, reddish to brownish in color, associated with fever or chills and fatigue. Patient states his grandchildren were sick and he caught the infection from them. He also endorses right-sided chest pain on deep breath. Patient was noted to be afebrile pulse of 110 respiratory rate 18 blood pressure 76/48 oxygen saturation 85% on room air. Oxygen improved to 92% on trach ordered. EKG was obtained patient was sinus tachycardia no ST segment deviation noted with QTc interval of 418. Chest x-ray 12/24 suggestive of mild strandy density left lower lobe with was consolidation involving the right upper lung concerning for overlying bacterial pneumonia. Labs reviewed suggested of a visible 4.4 hemoglobin 18.2 platelets 137 INR 1.1 bicarb 19 BUN 32 creatinine 2.29, lactic acid of 5.5 AST 116 ALT 60 troponin 0.238. COVID is positive. We will give the patient will complete total 3 L IV bolus of normal saline. One dose of Rocephin and azithromycin. Neck ER. Pulmonary is consulted. Patient initiated on Solu-Medrol 60 every 6. DuoNeb will be continued as needed for shortness of breath. Patient will be initiated on remdesivir. Cardiology was consulted with increase in troponin. 12/25 Patient is seen today on 12/25. Patient got intubated yesterday 12/19 5 in the evening as unable to maintain oxygenation on trach collar. Patient was placed on mechanical ventilator with the settings of assist control rate of 34 tidal volume 450 FiO2 90% and PEEP of 12. ABG was obtained with a pH of 7.15 pCO2 48 pO2 112. Patient started on norepinephrine drip, vasopressin drip, propofol, fentanyl, Pneumovax and and bicarb drip. NG tube will be placed today to help with intestinal feeding. Blood cultures are positive for gram-positive cocci. Antibiotics patient from ceftriaxone and azithromycin to Zosyn and vancomycin. Labs were reviewed, patient has a WBC 11.3 hemoglobin 16 platelet 177 chloride 114 bicarb 17 BUN 40 creatinine 2.65, glucose 185 lactic acid of 4 calcium 6.3. 12/26 Patient remains intubated on droplet precautions for COVID. Continues to remain intubated on 70% FiO2 PEEP of 16 respiratory rate 34 arm tidal volume of 450. Because of the patient's afebrile pulse 75 respiratory rate 30 4R blood pressure 107/62 oxygen saturation 91% on if I O2 of 70%. Labs are reviewed patient is an insulin-dependent hemoglobin 14.1 platelet 137 d-dimer is elevated at 1.4. 7.3 and 46 pO2 of 78. Insulin 37 potassium 5 bicarb 21 and 59 creatinine 4.17 glucose 264 calcium 6 ionized calcium 3.6, LDH 2155 CRP 3056.2 albumin 2. Urine output was 180 ml in the last 24 hour. She'll see one dose of IV Lasix 80 mg today. If no improvement in urine output. Patient will be placed on renal replacement therapy. One dose 2 g of calcium gluconate given. Patient continues to remain on vasopressin and was febrile fed for pressure. Solu- Medrol a 60 IV every 6. Lantus initiated 15 units. Lovenox increased to 100 mg subcu twice a day Review of system Could not be obtained patient is intubated Physical exam - Constitutional General appearance: Intubated with tracheostomy - EENT Eyes: anicteric sclerae, PERRLA, normal appearance ENT: hearing grossly normal - Neck Neck: no lymphadenopathy, normal ROM, no other, no rigidity, no stridor, no thyromegaly - Respiratory Respiratory: bilateral decreased air entry with crackles and rhonchi worse involving right upper lung - Cardiovascular Rhythm: tachycardic heart sounds: normal: S1, S2 Abnormal Heart Sounds: no systolic murmur, no diastolic murmur, no rub, no S3 Gallop, no S4 Gallop, no click, no other - Gastrointestinal General gastrointestinal: normal bowel sounds, soft nontender - Integumentary Integumentary: no rash - Neurologic Neurologic: Couldn't be obtained as sedated - Musculoskeletal Musculoskeletal: No agitation strength equal bilaterally - Psychiatric Psychiatric: Sedated appropriate affect Assessment and plan #1 septic shock secondary to COVID pneumonia with possible overlying bacterial pneumonia. One blood culture positive for gram-positive cocci 3 L IV fluids normal saline given. Rocephin and azithromycin discontinued and switched to Zosyn and vancomycin. Patient initiated on Solu-Medrol 60 IV every 6. Not not a candidate for remdesiver . Pulmonary consult. Sputum culture. Cara as needed for shortness of breath. Mucinex 600 twice a day. Lactic acid repeat every 6 hours Pulmicort twice daily #2 acute hypoxic respiratory failure mechanically ventilated through t racheostomy since 12/24 secondary to COVID and superimposed bacterial pneumonia not a candidate for remdesivir. Pulmicort twice daily. Vitamin D, zinc and vitamin C ordered. Pulmonary consulted for further management. Solu-Medrol 60 IV every 6 hours . Lasix 80 mg IV 1 dose today. Lovenox increased to 100 mg twice a day. We'll discuss with pulmonary if patient would be a candidate for actimra #3 acute COPD exacerbation Pulmicort twice daily inhaler, DuoNeb as needed for shortness of breath, incentive spirometry, sputum culture. Continue Solu-Medrol 60 IV every 6 hours #4 troponin elevation rule out ACS. EKG dated the first ST elevation depression. Likely type II myocardial infarction. Cardiology consulted. #5 hyperglycemia A1c ordered on steroids. Anticipation 15 units at bedtime #6 hypertension on hold losartan 50 mg by mouth daily #7 hypocalcemia s/p 2 g calcium gluconate ordered #[id number] continue omeprazole 40 mg by mouth daily #9 history of laryngeal cancer status post laryngectomy and radiation . Has tracheostomy currently on trach collar #10 acute kidney injury on CK D3. Baseline creatinine not known.continues to worsen On bicarb drip #111 acute transaminitis likely secondary to COVID infection. Continue to monitor. #12 metabolic acidosis secondary to sepsis. On bicarb drip at 100 mL/h Continue IV fluids monitor labs #13 GI prophylaxis on omeprazole 40 mg by mouth dailyy #14 CODE STATUS full code # 15 hypothyroidism continue levothyroxine at 88 g by mouth daily #16 isolation droplet precautions for COVID #17 DVT prophylaxis heparin every 12 #18 disposition guarded prognosis Objective - Vital Signs Vital signs: Vital Signs Temp 99.5 F 12/26/20 12:00 Pulse 75 12/26/20 13:30 Resp 34 H 12/26/20 13:30 BP 107/62 12/26/20 13:30 Pulse Ox 91 L 12/26/20 13:30 Intake & Output 12/25/20 12/26/20 12/26/20 18:59 06:59 18:59 Intake Total 2375.324 0884.138 0362.250 Output Total 470 155 80 Balance 4573.780 3316.832 1036.250 Weight 101.6 kg Intake: IV 1422 1476 461 .9 295 240 140 Dextrose 5% in Water 1, 1100 1200 300 000 ml @ 100 mls/hr IV . [id number] [facility] with Sodium Bicarb (1 Meq/ml) 150 ml Rx#:[id number] Pressure Bag 27 36 21 Intake, IV Titration 842.324 417.832 343.250 Amount Calcium Gluconate 2 gm In 100 Sodium Chloride 0.9% 100 ml @ 100 mls/hr IVPB ONCE ONE Rx#:[id number] Cisatracurium 200 mg In 177.153 179.945 200 Sodium Chloride 0.9% 180 ml @ 1 MCG/KG/MIN 6.205 mls/hr IV .Q24H [facility] Rx#: [id number] Norepinephrine 32 mg In 125.089 133.020 39.894 Sodium Chloride 0.9% 218 ml @ 0.5 MCG/KG/MIN 23. 813 mls/hr IV .[id number] [facility] Rx#:[id number] Norepinephrine 8 mg In 242.974 Sodium Chloride 0.9% 250 ml @ 0.05 MCG/KG/MIN 10. 006 mls/hr IV .Q24H [facility] Rx#:[id number] Piperacillin-Tazobactam 3 100 .375 gm In Sodium Chloride 0.9% 100 ml @ 25 mls/hr IVPB Q8H [facility] Rx#: [id number] fentaNYL (PF). 1,000 mcg 190.606 100 In Sodium Chloride 0.9% 80 ml @ 0.5 MCG/KG/HR 5. 171 mls/hr IV .[id number] [facility] Rx#:[id number] propofoL 1,000 mg In 6.502 4.867 3.356 Empty Bag 1 bag @ Titrate IV .Q0M [facility] Rx#: [id number] Tube Feeding 81 27 162 Other 30 150 Output: Urine 470 155 80 Other: Voiding Method Indwelling Catheter Indwelling Catheter Indwelling Catheter ABP, PAP, CO, CI - Last Documented Arterial Blood Pressure 85/47 - Labs CBC & Chem 7: 12/26/20 04:50 12/26/20 04:50 Labs: Abnormal Lab Results - Last 24 Hours (Table) 12/25/20 12/25/20 12/25/20 Range/Units 17:51 19:58 23:53 WBC (3.8-10.6) k/uL Plt Count (150-450) k/uL Neutrophils # (Manual) (1.3-7.7) k/uL Lymphocytes # (Manual) (1.0-4.8) k/uL Metamyelocytes # (Man) (0) k/uL D-Dimer (<0.60) mg/L FEU ABG pH 7.28 L (7.35-7.45) ABG pCO2 (35-45) mmHg ABG pO2 (83-108) mmHg Carbon Dioxide (22-30) mmol/L BUN (9-20) mg/dL Creatinine (0.66-1.25) mg/dL Glucose (74-99) mg/dL POC Glucose (mg/dL) 171 H 270 H (75-99) mg/dL Calcium (8.4-10.2) mg/dL Ionized Calcium Boni (4.5-5.3) mg/dL AST (17-59) U/L Lactate Dehydrogenase (313-618) U/L C-Reactive Protein (<1.0) mg/dL Total Protein (6.3-8.2) g/dL Albumin (3.5-5.0) g/dL 12/26/20 12/26/20 12/26/20 Range/Units 04:50 04:50 04:50 WBC 10.7 H (3.8-10.6) k/uL Plt Count 137 L (150-450) k/uL Neutrophils # (Manual) 10.30 H (1.3-7.7) k/uL Lymphocytes # (Manual) 0.32 L (1.0-4.8) k/uL Metamyelocytes # (Man) 0.11 H (0) k/uL D-Dimer 1.41 H (<0.60) mg/L FEU ABG pH (7.35-7.45) ABG pCO2 (35-45) mmHg ABG pO2 (83-108) mmHg Carbon Dioxide 21 L (22-30) mmol/L BUN 59 H (9-20) mg/dL Creatinine 4.17 H (0.66-1.25) mg/dL Glucose 264 H (74-99) mg/dL POC Glucose (mg/dL) (75-99) mg/dL Calcium 6.0 L* (8.4-10.2) mg/dL Ionized Calcium Boni (4.5-5.3) mg/dL AST 148 H (17-59) U/L Lactate Dehydrogenase 2155 H (313-618) U/L C-Reactive Protein 56.2 H (<1.0) mg/dL Total Protein 4.3 L (6.3-8.2) g/dL Albumin 2.0 L (3.5-5.0) g/dL 12/26/20 12/26/20 12/26/20 Range/Units 04:52 05:15 05:55 WBC (3.8-10.6) k/uL Plt Count (150-450) k/uL Neutrophils # (Manual) (1.3-7.7) k/uL Lymphocytes # (Manual) (1.0-4.8) k/uL Metamyelocytes # (Man) (0) k/uL D-Dimer (<0.60) mg/L FEU ABG pH 7.32 L (7.35-7.45) ABG pCO2 46 H (35-45) mmHg ABG pO2 78 L (83-108) mmHg Carbon Dioxide (22-30) mmol/L BUN (9-20) mg/dL Creatinine (0.66-1.25) mg/dL Glucose (74-99) mg/dL POC Glucose (mg/dL) 267 H (75-99) mg/dL Calcium (8.4-10.2) mg/dL Ionized Calcium Boni 3.6 L (4.5-5.3) mg/dL AST (17-59) U/L Lactate Dehydrogenase (313-618) U/L C-Reactive Protein (<1.0) mg/dL Total Protein (6.3-8.2) g/dL Albumin (3.5-5.0) g/dL 12/26/20 Range/Units 11:45 WBC (3.8-10.6) k/uL Plt Count (150-450) k/uL Neutrophils # (Manual) (1.3-7.7) k/uL Lymphocytes # (Manual) (1.0-4.8) k/uL Metamyelocytes # (Man) (0) k/uL D-Dimer (<0.60) mg/L FEU ABG pH (7.35-7.45) ABG pCO2 (35-45) mmHg ABG pO2 (83-108) mmHg Carbon Dioxide (22-30) mmol/L BUN (9-20) mg/dL Creatinine (0.66-1.25) mg/dL Glucose (74-99) mg/dL POC Glucose (mg/dL) 173 H (75-99) mg/dL Calcium (8.4-10.2) mg/dL Ionized Calcium Boni (4.5-5.3) mg/dL AST (17-59) U/L Lactate Dehydrogenase (313-618) U/L C-Reactive Protein (<1.0) mg/dL Total Protein (6.3-8.2) g/dL Albumin (3.5-5.0) g/dL Microbiology - Last 24 Hours (Table) 12/25/20 16:30 Gram Stain - Preliminary Sputum Sputum Culture - Preliminary 12/25/20 16:30 Urine Culture - Preliminary Urine,Catheterized
[2020-12-26] MEDS ORDERED: ENOXAPARIN 60 MG/0.6 ML SYRINGE SQ ONE (14:30)
--- NOTE | 2020-12-26 14:56 | P.PN ---
Subjective Progress Note Date: 12/26/20 Principal diagnosis: Acute hypoxic respiratory failure secondary to: 19 pneumonia, possible aspiration pneumonia, and septic shock with bacteremia This is a 60-year-old white male patient past medical history of laryngeal cancer (squamous cell carcinoma) with history of laryngectomy and radiation in 2015, status post tracheostomy, history of hypothyroidism, COPD, hypertension. Patient came into the emergency department on 12/24/2020 for evaluation of acute shortness of breath, associated with cough and phlegm production. He is producing reddish to brownish colored phlegm, he had fever, chills and fatigue. Patient states one of his grandchildren was sick, and he believes he may have caught the infection from them. He endorses right-sided chest pain with a deep inspiration. In the emergency department since he was hypotensive with blood pressure of 76/48, and his pulse ox was 70% on room air. He currently has a non-cuffed cannula this inserted into his tracheotomy opening in his neck, he was placed on 92% trach collar, however his pulse ox is still 83%. Patient is audibly congested and short of breath. He is using accessory muscles of breathing. He is using of voice box to respond verbally, he is tachycardic on the monitor, but in sinus mechanism. His chest x-ray showed mild strandy density at the left lower lobe with consolidation involving the right upper lung concerning for bacterial pneumonia possibly aspiration related pneumonia. His labs showed white blood cell count of 4.4, hemoglobin of 18.2, platelets of 137, INR 1.1, BUN of 32, creatinine of 2.29, lactic acid was 5.5, AST was 116, ALT was 60, troponin was 0.238. COVID-19 PCR was positive. Patient was started on fluid resuscitation and will be given a total of 3 L and IV fluid boluses. He was initially started on Rocephin and azithromycin in the emergency department. He was started on IV Solu-Medrol 60 g every 6 hours and nebulized bronchodilators. Is currently still requiring high flow oxygen per trach collar, still remains very hypoxic, and short of breath. He will be transferred to the ICU, and the tracheostomy will be placed and patient will be placed on the mechanical ventilator. Patient was reevaluated today on 12/25/20, patient remains intubated and mechanically ventilated. His ventilator settings are assist control rate of 34 volume 450 FiO2 90% and we cut it down to 70%, PEEP is at 12. ABG showed a pO2 of 112 pCO2 48 pH of 7.15. Patient remains on bicarb drip, norepinephrine at 0.5 mcg/kg/m, Nimbex, and vasopressin. To maintain adequate blood pressure. Patient received earlier this morning sodium bicarb and received fluid boluses total of 5 L since admission. Blood cultures came back positive for gram- positive cocci. Identification is pending. In the meantime the patient is on antibiotics in the form of Zosyn and vancomycin. Labs today were reviewed, electrolytes are normal renal profile is about the same compared to yesterday with a BUN of 40 creatinine 2.65, lactic acid is 4.0 this morning. And blood sugar is 197. Chest x-ray shows right upper lobe reticular nodular opacity and left lower lobe as well as right lower lobe bibasilar opacities. Reevaluated today on 12/26/20, patient remains in the ICU, intubated and mechanically ventilated. He is on assist control rate of 34 Tylenol volume 450 FiO2 of 70% PEEP is 12 and I increased the PEEP up to 16 today. ABG showed a pO2 of 78 pCO2 of 46 pH of 7.32. Patient remains on propofol at 45, Nimbex at 3, IV fluid at KVO. He remains on bicarb drip, norepinephrine at 0.18 mcg/kg/m, fentanyl 1 mcg/kg per hour. And is also on a bicarb drip. After noticing the ABG and his electrolytes, his bicarb was discontinued. Since his bicarb is 21 today on the electrolytes. WBC count is 10.7 hemoglobin is 14.1. Platelets are 137. D-dimer is 1.41 blood cultures on admission were positive for gram- positive cocci. Sputum cultures so far nondiagnostic. Many gram-positive cocci noted, and many polymorphonuclears noted in the sputum sample chest x-ray showed diffuse increased lung markings right more so than left, and also increased markings in the left lower lobe. As well as right upper lobe. Renal ultrasound is basically unremarkable. No hydronephrosis noted. Antibiotics kelley, patient remains on Zosyn. And vancomycin. Objective - Vital Signs Vital signs: Vital Signs Temp 99.5 F 12/26/20 12:00 Pulse 75 12/26/20 13:30 Resp 34 H 12/26/20 13:30 BP 107/62 12/26/20 13:30 Pulse Ox 91 L 12/26/20 13:30 Intake & Output 12/25/20 12/26/20 12/26/20 18:59 06:59 18:59 Intake Total 2375.324 3307.685 1901.250 Output Total 470 155 80 Balance 5673.296 7631.832 1036.250 Weight 101.6 kg Intake: IV 1422 1476 461 .9 295 240 140 Dextrose 5% in Water 1, 1100 1200 300 000 ml @ 100 mls/hr IV . [id number] [facility] with Sodium Bicarb (1 Meq/ml) 150 ml Rx#:[id number] Pressure Bag 27 36 21 Intake, IV Titration 842.324 417.832 343.250 Amount Calcium Gluconate 2 gm In 100 Sodium Chloride 0.9% 100 ml @ 100 mls/hr IVPB ONCE ONE Rx#:[id number] Cisatracurium 200 mg In 177.153 179.945 200 Sodium Chloride 0.9% 180 ml @ 1 MCG/KG/MIN 6.205 mls/hr IV .Q24H [facility] Rx#: [id number] Norepinephrine 32 mg In 125.089 133.020 39.894 Sodium Chloride 0.9% 218 ml @ 0.5 MCG/KG/MIN 23. 813 mls/hr IV .[id number] [facility] Rx#:[id number] Norepinephrine 8 mg In 242.974 Sodium Chloride 0.9% 250 ml @ 0.05 MCG/KG/MIN 10. 006 mls/hr IV .Q24H [facility] Rx#:[id number] Piperacillin-Tazobactam 3 100 .375 gm In Sodium Chloride 0.9% 100 ml @ 25 mls/hr IVPB Q8H [facility] Rx#: [id number] fentaNYL (PF). 1,000 mcg 190.606 100 In Sodium Chloride 0.9% 80 ml @ 0.5 MCG/KG/HR 5. 171 mls/hr IV .[id number] [facility] Rx#:[id number] propofoL 1,000 mg In 6.502 4.867 3.356 Empty Bag 1 bag @ Titrate IV .Q0M [facility] Rx#: [id number] Tube Feeding 81 27 162 Other 30 150 Output: Urine 470 155 80 Other: Voiding Method Indwelling Catheter Indwelling Catheter Indwelling Catheter ABP, PAP, CO, CI - Last Documented Arterial Blood Pressure 85/47 - Exam GENERAL EXAM: Revealed a 60-year-old white male intubated, sedated, and paralyzed. HEAD: Normocephalic/atraumatic. EENT PERRLA, EOMI, anicteric, no neck masses, no JVD. NECK: Surgical changes noted in the neck, endotracheal tube noted in the t racheostomy, connected to mechanical ventilation. CHEST: No chest wall deformity. Symmetrical expansion. LUNGS: Crackles at the bases, no wheezes, scattered rhonchi noted. CVS: Regular rate and rhythm, normal S1 and S2, no gallops, no murmurs, no rubs ABDOMEN: Soft, nontender. No hepatosplenomegaly, normal bowel sounds, no guarding or rigidity. EXTREMITIES: No clubbing, no edema, no cyanosis, 2+ pulses and upper and lower extremities. MUSCULOSKELETAL: No deformities. SKIN: No rashes CENTRAL NERVOUS SYSTEM: Cannot assess, patient is sedated and paralyzed. PSYCHIATRIC: Could not assess - Labs CBC & Chem 7: 12/26/20 04:50 12/26/20 04:50 Labs: Abnormal Lab Results - Last 24 Hours (Table) 12/25/20 12/25/20 12/25/20 Range/Units 17:51 19:58 23:53 WBC (3.8-10.6) k/uL Plt Count (150-450) k/uL Neutrophils # (Manual) (1.3-7.7) k/uL Lymphocytes # (Manual) (1.0-4.8) k/uL Metamyelocytes # (Man) (0) k/uL D-Dimer (<0.60) mg/L FEU ABG pH 7.28 L (7.35-7.45) ABG pCO2 (35-45) mmHg ABG pO2 (83-108) mmHg Carbon Dioxide (22-30) mmol/L BUN (9-20) mg/dL Creatinine (0.66-1.25) mg/dL Glucose (74-99) mg/dL POC Glucose (mg/dL) 171 H 270 H (75-99) mg/dL Calcium (8.4-10.2) mg/dL Ionized Calcium Boni (4.5-5.3) mg/dL AST (17-59) U/L Lactate Dehydrogenase (313-618) U/L C-Reactive Protein (<1.0) mg/dL Total Protein (6.3-8.2) g/dL Albumin (3.5-5.0) g/dL 12/26/20 12/26/20 12/26/20 Range/Units 04:50 04:50 04:50 WBC 10.7 H (3.8-10.6) k/uL Plt Count 137 L (150-450) k/uL Neutrophils # (Manual) 10.30 H (1.3-7.7) k/uL Lymphocytes # (Manual) 0.32 L (1.0-4.8) k/uL Metamyelocytes # (Man) 0.11 H (0) k/uL D-Dimer 1.41 H (<0.60) mg/L FEU ABG pH (7.35-7.45) ABG pCO2 (35-45) mmHg ABG pO2 (83-108) mmHg Carbon Dioxide 21 L (22-30) mmol/L BUN 59 H (9-20) mg/dL Creatinine 4.17 H (0.66-1.25) mg/dL Glucose 264 H (74-99) mg/dL POC Glucose (mg/dL) (75-99) mg/dL Calcium 6.0 L* (8.4-10.2) mg/dL Ionized Calcium Boni (4.5-5.3) mg/dL AST 148 H (17-59) U/L Lactate Dehydrogenase 2155 H (313-618) U/L C-Reactive Protein 56.2 H (<1.0) mg/dL Total Protein 4.3 L (6.3-8.2) g/dL Albumin 2.0 L (3.5-5.0) g/dL 12/26/20 12/26/20 12/26/20 Range/Units 04:52 05:15 05:55 WBC (3.8-10.6) k/uL Plt Count (150-450) k/uL Neutrophils # (Manual) (1.3-7.7) k/uL Lymphocytes # (Manual) (1.0-4.8) k/uL Metamyelocytes # (Man) (0) k/uL D-Dimer (<0.60) mg/L FEU ABG pH 7.32 L (7.35-7.45) ABG pCO2 46 H (35-45) mmHg ABG pO2 78 L (83-108) mmHg Carbon Dioxide (22-30) mmol/L BUN (9-20) mg/dL Creatinine (0.66-1.25) mg/dL Glucose (74-99) mg/dL POC Glucose (mg/dL) 267 H (75-99) mg/dL Calcium (8.4-10.2) mg/dL Ionized Calcium Boni 3.6 L (4.5-5.3) mg/dL AST (17-59) U/L Lactate Dehydrogenase (313-618) U/L C-Reactive Protein (<1.0) mg/dL Total Protein (6.3-8.2) g/dL Albumin (3.5-5.0) g/dL 12/26/20 Range/Units 11:45 WBC (3.8-10.6) k/uL Plt Count (150-450) k/uL Neutrophils # (Manual) (1.3-7.7) k/uL Lymphocytes # (Manual) (1.0-4.8) k/uL Metamyelocytes # (Man) (0) k/uL D-Dimer (<0.60) mg/L FEU ABG pH (7.35-7.45) ABG pCO2 (35-45) mmHg ABG pO2 (83-108) mmHg Carbon Dioxide (22-30) mmol/L BUN (9-20) mg/dL Creatinine (0.66-1.25) mg/dL Glucose (74-99) mg/dL POC Glucose (mg/dL) 173 H (75-99) mg/dL Calcium (8.4-10.2) mg/dL Ionized Calcium Boni (4.5-5.3) mg/dL AST (17-59) U/L Lactate Dehydrogenase (313-618) U/L C-Reactive Protein (<1.0) mg/dL Total Protein (6.3-8.2) g/dL Albumin (3.5-5.0) g/dL Microbiology - Last 24 Hours (Table) 12/25/20 16:30 Gram Stain - Preliminary Sputum Sputum Culture - Preliminary 12/25/20 16:30 Urine Culture - Preliminary Urine,Catheterized Assessment and Plan Assessment: Impression: Acute hypoxic respiratory failure secondary to acute COVID-19 pneumonia, suspect aspiration pneumonia or Streptococcus pneumonia, and gram-positive bacteremia. Septic shock secondary to above. History of laryngeal cancer and previous laryngectomy followed by radiation treatment in 2014. And the tracheostomy. Acute lactic acidosis secondary to sepsis and septic shock. Acute kidney injury secondary to sepsis and septic shock. Acute troponin leak. History of COPD. History of hypothyroidism. History of hypertension. Recommendation: Continue ventilatory support. Increase PEEP to 12, titrate FiO2 from 70% down if possible after increasing PEEP. Continue nutritional support. Patient is on enteral feeding. Continue blood pressure support/pressors and fluids. Continue antibiotics / Zosyn and vancomycin, Patient is not a candidate for redesivir and definitely not a candidate for baricitinib Continue COVID-19 cocktail. Continue GI and DVT prophylaxis. Continue to monitor daily x-rays and daily labs. Continue bronchodilators. Prognosis is definitely guarded. Patient is critically ill. Critical care time is over 30 minutes. We will continue to follow. Time with Patient: Greater than 30
[2020-12-26 17:48] LABS: Glucose,Whole Blood 147 mg/dL (75-99)
--- NOTE | 2020-12-26 18:58 | US ---
EXAMINATION TYPE: US venous doppler duplex LE DATE OF EXAM: 12/26/2020 5:45 PM COMPARISON: NONE CLINICAL HISTORY: elevated d-dimer. Elevated D Dimer per order. Intubated covid patient. SIDE PERFORMED: Bilateral TECHNIQUE: The lower extremity deep venous system is examined utilizing real time linear array sonog tami with graded compression, doppler sonography and color-flow sonography. VESSELS IMAGED: Common Femoral Vein Deep Femoral Vein Greater Saphenous Vein * Femoral Vein Popliteal Vein Small Saphenous Vein * Proximal Calf Veins (* superficial vessels) Right Leg: Limited due to patient positioning. No evidence of DVT in veins imaged at this time. Left Leg: Limited due to bandage. Color flow seen in all veins imaged. DFV not seen. Possible incompl ete compression/ internal echoes at CFV segment where line is. Popliteal vein appears to compress inc ompletely, possible chronic internal echoes along vessel wall. Patient had line in place-ZEKE Beckham confirmed okay to apply pressure to follow normal protocol for c ompressions of veins. IMPRESSION: No sign of deep vein thrombosis in the right leg. There is possible chronic deep vein th rombosis in the left leg in the popliteal vein.
[2020-12-26 20:16] LABS: Glucose,Whole Blood 136 mg/dL (75-99)
[2020-12-26] MEDS: INSULIN DETEMIR (LEVEMIR) 100 UNIT/ML SYR SQ SCH (20:17)
[2020-12-26] MEDS ORDERED: INSULIN DETEMIR (LEVEMIR) 100 UNIT/ML SYR SQ SCH (21:00)
[2020-12-26 23:06] LABS: Glucose,Whole Blood 145 mg/dL (75-99)
[2020-12-27] MEDS: NOREPINEPHRINE 32 MG in SODIUM CHLORIDE 0.9% 218 ML IV SCH ×2 (04:53→16:06)
[2020-12-27 04:57] LABS: Basophils % (A) 0 %; Eosinophils % (A) 0 %; HCT 39.7 % (39.0-53.0); HGB 13.4 gm/dL (13.0-17.5); Lymphocytes # (A) 0.2 k/uL (1.0-4.8); Lymphocytes % (A) 2 %; MCH 30.9 pg (25.0-35.0); MCHC 33.8 g/dL (31.0-37.0); MCV 91.3 fL (80.0-100.0); Mean Platelet Volume 9.5; Monocytes # (A) 0.3 k/uL (0-1.0); Monocytes % (A) 2 %; Neutrophils # (A) 12.3 k/uL (1.3-7.7); Neutrophils % (A) 95 %; Platelet Count 109 k/uL (150-450); RBC 4.35 m/uL (4.30-5.90); RDW 13.8 % (11.5-15.5)
[2020-12-27 05:07] LABS: Albumin 2.3 g/dL (3.5-5.0); Calcium 6.6 mg/dL (8.4-10.2); Potassium 5.1 mmol/L (3.5-5.1); Total Bilirubin 1.5 mg/dL (0.2-1.3); Total Protein 4.8 g/dL (6.3-8.2)
[2020-12-27 05:23] LABS: Glucose,Whole Blood 144 mg/dL (75-99)
[2020-12-27] MEDS: LEVOTHYROXINE 88 MCG TAB PO SCH (05:25)
[2020-12-27] MEDS: INSULIN ASPART (NovoLOG) 100 UNIT/ML VIAL SQ SCH ×3 (05:25→18:17)
[2020-12-27] MEDS: methylPREDNISolone SOD SUCCI 125 MG/2 ML VIAL IV SCH ×3 (05:25→18:19)
[2020-12-27 05:35] LABS: ABG Base Excess -4.7 mmol/L; ABG HCO3 23 mmol/L (21-25); ABG Oxygen Saturation 94.8 % (94-97); ABG PCO2 56 mmHg (35-45); ABG PH 7.24 (7.35-7.45); ABG PO2 89 mmHg (83-108); Allen Test Performed? Yes
[2020-12-27 05:50] LABS: C Reactive Protein 37.2 mg/dL (<1.0)
[2020-12-27] MEDS: fentaNYL (PF). 1,000 MCG in SODIUM CHLORIDE 0.9% 80 ML IV SCH ×2 (06:50→18:17)
--- NOTE | 2020-12-27 07:23 | XR ---
EXAMINATION TYPE: XR chest 1V portable DATE OF EXAM: 12/27/2020 HISTORY: Shortness of breath. COMPARISON: 12/26/2020 TECHNIQUE: Single view of the chest is submitted. FINDINGS: Reticulonodular infiltrates persist throughout both lung galvan with improving aeration right upper l obe. Endotracheal tube and NG tube are unchanged in position. The heart is stable. Hilar and mediastinal structures are within normal limits. Degenerative changes are seen of the dorsal spine. IMPRESSION: 1. Reticulonodular infiltrates persist throughout both lung galvan with improving aeration right upp er lobe.
[2020-12-27] MEDS: SODIUM CHLORIDE 0.9% 150 ML with VASOPRESSIN 60 UNIT IV SCH ×2 (07:38)
[2020-12-27] MEDS: CISATRACURIUM 200 MG in SODIUM CHLORIDE 0.9% 180 ML IV SCH ×2 (08:15→18:16)
[2020-12-27] MEDS: CHOLECALCIFEROL 25 MCG (1000 IU) TABLET PO SCH (08:27)
[2020-12-27] MEDS: ZINC SULFATE 220 MG CAP PO SCH (08:28)
[2020-12-27] MEDS: CHLORHEXIDINE GLUCONATE 15 ML CUP MUCOUS MEM SCH ×2 (08:28→20:55)
[2020-12-27] MEDS: PANTOPRAZOLE 40 MG/10 ML VIAL IVP SCH (08:28)
[2020-12-27] MEDS: ASCORBIC ACID 500 MG TAB PO SCH ×2 (08:28→20:55)
[2020-12-27] MEDS ORDERED: ENOXAPARIN 100 MG/ML SYRINGE SQ SCH (09:00)
[2020-12-27] MEDS ORDERED: ENOXAPARIN 40 MG/0.4 ML SYRINGE SQ SCH ×2 (09:00→21:00)
--- NOTE | 2020-12-27 09:32 | P.PN ---
Subjective Patient is seen in follow-up for acute kidney injury. Renal function worsening. Remains on vasopressor support. Oliguric. On 70% FiO2. Vital signs are stable. On vasopressor support. Patient has a tracheostomy. HEART: Rate and Rhythm are regular. EXTREMITITES: No gross edema. Exam discussed with the nurse. Objective - Vital Signs Vital signs: Vital Signs Temp 99.8 F H 12/27/20 04:00 Pulse 76 12/27/20 09:00 Resp 34 H 12/27/20 09:00 BP 117/68 12/27/20 09:00 Pulse Ox 90 L 12/27/20 09:00 Intake & Output 12/26/20 12/27/20 12/27/20 18:59 06:59 18:59 Intake Total 1435.463 4283.146 313.668 Output Total 280 280 30 Balance 1258.425 811.146 283.668 Weight 106.3 kg Intake: IV 576 276 46 .9 240 240 40 Dextrose 5% in Water 1, 300 000 ml @ 100 mls/hr IV . [id number] [facility] with Sodium Bicarb (1 Meq/ml) 150 ml Rx#:[id number] Pressure Bag 36 36 6 Intake, IV Titration 485.425 401.146 183.668 Amount Calcium Gluconate 2 gm In 100 Sodium Chloride 0.9% 100 ml @ 100 mls/hr IVPB ONCE ONE Rx#:[id number] Cisatracurium 200 mg In 200 188.012 183.668 Sodium Chloride 0.9% 180 ml @ 1 MCG/KG/MIN 6.205 mls/hr IV .Q24H [facility] Rx#: [id number] Norepinephrine 32 mg In 80.759 106.507 Sodium Chloride 0.9% 218 ml @ 0.5 MCG/KG/MIN 23. 813 mls/hr IV .[id number] [facility] Rx#:[id number] fentaNYL (PF). 1,000 mcg 100 100 In Sodium Chloride 0.9% 80 ml @ 0.5 MCG/KG/HR 5. 171 mls/hr IV .[id number] [facility] Rx#:[id number] propofoL 1,000 mg In 4.666 6.627 Empty Bag 1 bag @ Titrate IV .Q0M [facility] Rx#: [id number] Tube Feeding 297 324 54 Other 180 90 30 Output: Urine 280 280 30 Other: Voiding Method Indwelling Catheter Indwelling Catheter Indwelling Catheter ABP, PAP, CO, CI - Last Documented Arterial Blood Pressure 93/51 - Labs CBC & Chem 7: 12/27/20 04:15 12/27/20 04:15 Labs: Abnormal Lab Results - Last 24 Hours (Table) 12/26/20 12/26/20 12/26/20 Range/Units 11:45 17:47 20:14 WBC (3.8-10.6) k/uL Plt Count (150-450) k/uL Neutrophils # (1.3-7.7) k/uL Lymphocytes # (1.0-4.8) k/uL D-Dimer (<0.60) mg/L FEU ABG pH (7.35-7.45) ABG pCO2 (35-45) mmHg Carbon Dioxide (22-30) mmol/L BUN (9-20) mg/dL Creatinine (0.66-1.25) mg/dL Glucose (74-99) mg/dL POC Glucose (mg/dL) 173 H 147 H 136 H (75-99) mg/dL Calcium (8.4-10.2) mg/dL Total Bilirubin (0.2-1.3) mg/dL AST (17-59) U/L Lactate Dehydrogenase (313-618) U/L C-Reactive Protein (<1.0) mg/dL Total Protein (6.3-8.2) g/dL Albumin (3.5-5.0) g/dL 12/26/20 12/27/20 12/27/20 Range/Units 23:04 04:15 04:15 WBC 13.0 H (3.8-10.6) k/uL Plt Count 109 L (150-450) k/uL Neutrophils # 12.3 H (1.3-7.7) k/uL Lymphocytes # 0.2 L (1.0-4.8) k/uL D-Dimer 4.71 H (<0.60) mg/L FEU ABG pH (7.35-7.45) ABG pCO2 (35-45) mmHg Carbon Dioxide (22-30) mmol/L BUN (9-20) mg/dL Creatinine (0.66-1.25) mg/dL Glucose (74-99) mg/dL POC Glucose (mg/dL) 145 H (75-99) mg/dL Calcium (8.4-10.2) mg/dL Total Bilirubin (0.2-1.3) mg/dL AST (17-59) U/L Lactate Dehydrogenase (313-618) U/L C-Reactive Protein (<1.0) mg/dL Total Protein (6.3-8.2) g/dL Albumin (3.5-5.0) g/dL 12/27/20 12/27/20 12/27/20 Range/Units 04:15 05:07 05:21 WBC (3.8-10.6) k/uL Plt Count (150-450) k/uL Neutrophils # (1.3-7.7) k/uL Lymphocytes # (1.0-4.8) k/uL D-Dimer (<0.60) mg/L FEU ABG pH 7.24 L (7.35-7.45) ABG pCO2 56 H (35-45) mmHg Carbon Dioxide 20 L (22-30) mmol/L BUN 76 H (9-20) mg/dL Creatinine 6.27 H (0.66-1.25) mg/dL Glucose 170 H (74-99) mg/dL POC Glucose (mg/dL) 144 H (75-99) mg/dL Calcium 6.6 L (8.4-10.2) mg/dL Total Bilirubin 1.5 H (0.2-1.3) mg/dL AST 110 H (17-59) U/L Lactate Dehydrogenase 2344 H (313-618) U/L C-Reactive Protein 37.2 H (<1.0) mg/dL Total Protein 4.8 L (6.3-8.2) g/dL Albumin 2.3 L (3.5-5.0) g/dL Microbiology - Last 24 Hours (Table) 12/25/20 16:30 Urine Culture - Final Urine,Catheterized 12/24/20 14:41 Blood Culture Gram Stain - Preliminary Blood Blood Culture - Preliminary Streptococcus pneumoniae 12/24/20 14:25 Blood Culture Gram Stain - Preliminary Blood Blood Culture - Preliminary Streptococcus pneumoniae 12/25/20 16:30 Gram Stain - Preliminary Sputum Sputum Culture - Preliminary Assessment and Plan Plan: Assessment: 1. Acute kidney injury secondary to ATN secondary to septic shock. Creatinine 2.2 on admission and is 6.27 today. Oliguric. Unknown baseline renal function. No hydronephrosis noted on kidney ultrasound. 2. Septic shock secondary to strep pneumo bacteremia as well as COVID-19 infection. On Levophed and Levophed. 3. Metabolic acidosis secondary to acute kidney injury status post bicarb drip. 4. History of laryngeal cancer status post tracheostomy. 5. Hypocalcemia secondary to acute kidney injury. Corrected calcium 8.2. Plan: No response in urine output despite 80 mg IV Lasix given yesterday. Maintain tube feeds. Wean FiO2 and vasopressors. Continue to monitor renal function and urine output. Phosphorus 4.5. Due to worsening renal function, oliguria, initiate renal replacement therapy. Family will be contacted. Plan for first treatment of hemodialysis today and second treatment tomorrow. Monitor vancomycin level. Dose to be adjusted for renal function.
[2020-12-27] MEDS: ALBUTEROL HFA INHALER INHALATION PRN (09:50)
[2020-12-27 11:37] LABS: Glucose,Whole Blood 163 mg/dL (75-99)
[2020-12-27] MEDS: PIPERACILLIN-TAZOBACTAM 3.375 GM in SODIUM CHLORIDE 0.9% 100 ML IVPB SCH (11:48)
[2020-12-27] MEDS ORDERED: LIDOCAINE 1% INJ 10MG/ML (20 ML MDV) ONE (12:00)
[2020-12-27] MEDS ORDERED: HEPARIN SODIUM 1,000 UN/ML (10ML VL) ONE (12:00)
--- NOTE | 2020-12-27 14:25 | P.PN ---
Subjective Progress Note Date: 12/27/20 Principal diagnosis: Acute hypoxic respiratory failure secondary to: 19 pneumonia, possible aspiration pneumonia, and septic shock with bacteremia This is a 60-year-old white male patient past medical history of laryngeal cancer (squamous cell carcinoma) with history of laryngectomy and radiation in 2015, status post tracheostomy, history of hypothyroidism, COPD, hypertension. Patient came into the emergency department on 12/24/2020 for evaluation of acute shortness of breath, associated with cough and phlegm production. He is producing reddish to brownish colored phlegm, he had fever, chills and fatigue. Patient states one of his grandchildren was sick, and he believes he may have caught the infection from them. He endorses right-sided chest pain with a deep inspiration. In the emergency department since he was hypotensive with blood pressure of 76/48, and his pulse ox was 70% on room air. He currently has a non-cuffed cannula this inserted into his tracheotomy opening in his neck, he was placed on 92% trach collar, however his pulse ox is still 83%. Patient is audibly congested and short of breath. He is using accessory muscles of breathing. He is using of voice box to respond verbally, he is tachycardic on the monitor, but in sinus mechanism. His chest x-ray showed mild strandy density at the left lower lobe with consolidation involving the right upper lung concerning for bacterial pneumonia possibly aspiration related pneumonia. His labs showed white blood cell count of 4.4, hemoglobin of 18.2, platelets of 137, INR 1.1, BUN of 32, creatinine of 2.29, lactic acid was 5.5, AST was 116, ALT was 60, troponin was 0.238. COVID-19 PCR was positive. Patient was started on fluid resuscitation and will be given a total of 3 L and IV fluid boluses. He was initially started on Rocephin and azithromycin in the emergency department. He was started on IV Solu-Medrol 60 g every 6 hours and nebulized bronchodilators. Is currently still requiring high flow oxygen per trach collar, still remains very hypoxic, and short of breath. He will be transferred to the ICU, and the tracheostomy will be placed and patient will be placed on the mechanical ventilator. Patient was reevaluated today on 12/25/20, patient remains intubated and mechanically ventilated. His ventilator settings are assist control rate of 34 volume 450 FiO2 90% and we cut it down to 70%, PEEP is at 12. ABG showed a pO2 of 112 pCO2 48 pH of 7.15. Patient remains on bicarb drip, norepinephrine at 0.5 mcg/kg/m, Nimbex, and vasopressin. To maintain adequate blood pressure. Patient received earlier this morning sodium bicarb and received fluid boluses total of 5 L since admission. Blood cultures came back positive for gram- positive cocci. Identification is pending. In the meantime the patient is on antibiotics in the form of Zosyn and vancomycin. Labs today were reviewed, electrolytes are normal renal profile is about the same compared to yesterday with a BUN of 40 creatinine 2.65, lactic acid is 4.0 this morning. And blood sugar is 197. Chest x-ray shows right upper lobe reticular nodular opacity and left lower lobe as well as right lower lobe bibasilar opacities. Reevaluated today on 12/26/20, patient remains in the ICU, intubated and mechanically ventilated. He is on assist control rate of 34 Tylenol volume 450 FiO2 of 70% PEEP is 12 and I increased the PEEP up to 16 today. ABG showed a pO2 of 78 pCO2 of 46 pH of 7.32. Patient remains on propofol at 45, Nimbex at 3, IV fluid at KVO. He remains on bicarb drip, norepinephrine at 0.18 mcg/kg/m, fentanyl 1 mcg/kg per hour. And is also on a bicarb drip. After noticing the ABG and his electrolytes, his bicarb was discontinued. Since his bicarb is 21 today on the electrolytes. WBC count is 10.7 hemoglobin is 14.1. Platelets are 137. D-dimer is 1.41 blood cultures on admission were positive for gram- positive cocci. Sputum cultures so far nondiagnostic. Many gram-positive cocci noted, and many polymorphonuclears noted in the sputum sample chest x-ray showed diffuse increased lung markings right more so than left, and also increased markings in the left lower lobe. As well as right upper lobe. Renal ultrasound is basically unremarkable. No hydronephrosis noted. Antibiotics kelley, patient remains on Zosyn. And vancomycin. Reevaluated today on 12/27/20, patient remains in the ICU, intubated and mechanically ventilated. Remains on assist control rate of 34 tidal volume 450 FiO2 70%, and I cut it down to 60%, PEEP of 16 ABG showed a pO2 of 89 pCO2 56 pH of 7.24, however I noted there was a bit of a leak around the cuff of the endotracheal tube, and after adjustment of the endotracheal tube and put more air in the cuff, noted better tidal volumes and I would assume that has fixed his hypercapnia. Patient remains on propofol at 65, fentanyl 1 mcg/kg/h is also on norepinephrine at 0.18 vasopressin is off, Nimbex remained the same. PEEP remains at 16. Peak airway pressure is 29. Plateau pressure is 24. Patient remains on empiric antibiotics. His renal functioning seems to be worse, and he was seen by nephrology, planning hemodialysis. Hence I discussed his condition with the today, and updated her on his status, made aware that he is critically ill, and mortality is probably in the range of 80%. Family seems to be agreeable to go and proceed with hemodialysis, but his CODE STATUS has been changed to DO NOT RESUSCITATE CODE STATUS. Labs from today were all noted, his LDH is 2344 C-reactive protein is 57. Chest x-ray is showing bilateral interstitial infiltrates, seems to be worse in the right upper lobe but slight improvement is noted in the right upper lobe infiltrates. Compared to yesterday Objective - Vital Signs Vital signs: Vital Signs Temp 99 F 12/27/20 12:00 Pulse 71 12/27/20 13:00 Resp 34 H 12/27/20 13:00 BP 118/66 12/27/20 13:00 Pulse Ox 89 L 12/27/20 13:00 Intake & Output 12/26/20 12/27/20 12/27/20 18:59 06:59 18:59 Intake Total 3428.098 6529.146 696.644 Output Total 280 280 45 Balance 1258.425 811.146 651.644 Weight 106.3 kg Intake: IV 576 276 161 .9 240 240 140 Dextrose 5% in Water 1, 300 000 ml @ 100 mls/hr IV . [id number] [facility] with Sodium Bicarb (1 Meq/ml) 150 ml Rx#:[id number] Pressure Bag 36 36 21 Intake, IV Titration 485.425 401.146 286.644 Amount Calcium Gluconate 2 gm In 100 Sodium Chloride 0.9% 100 ml @ 100 mls/hr IVPB ONCE ONE Rx#:[id number] Cisatracurium 200 mg In 200 188.012 183.668 Sodium Chloride 0.9% 180 ml @ 1 MCG/KG/MIN 6.205 mls/hr IV .Q24H [facility] Rx#: [id number] Norepinephrine 32 mg In 80.759 106.507 Sodium Chloride 0.9% 218 ml @ 0.5 MCG/KG/MIN 23. 813 mls/hr IV .[id number] [facility] Rx#:[id number] Piperacillin-Tazobactam 3 100 .375 gm In Sodium Chloride 0.9% 100 ml @ 25 mls/hr IVPB Q12H [facility] Rx# :[id number] fentaNYL (PF). 1,000 mcg 100 100 In Sodium Chloride 0.9% 80 ml @ 0.5 MCG/KG/HR 5. 171 mls/hr IV .[id number] [facility] Rx#:[id number] propofoL 1,000 mg In 4.666 6.627 2.976 Empty Bag 1 bag @ Titrate IV .Q0M [facility] Rx#: [id number] Tube Feeding 297 324 189 Other 180 90 60 Output: Urine 280 280 45 Other: Voiding Method Indwelling Catheter Indwelling Catheter Indwelling Catheter ABP, PAP, CO, CI - Last Documented Arterial Blood Pressure 93/51 - Exam GENERAL EXAM: Revealed a 60-year-old white male intubated, sedated, and paralyzed. HEAD: Normocephalic/atraumatic. EENT PERRLA, EOMI, anicteric, no neck masses, no JVD. NECK: Surgical changes noted in the neck, endotracheal tube noted in the tracheostomy, connected to mechanical ventilation. CHEST: No chest wall deformity. Symmetrical expansion. LUNGS: Crackles at the bases, no wheezes, scattered rhonchi noted. CVS: Regular rate and rhythm, normal S1 and S2, no gallops, no murmurs, no rubs ABDOMEN: Soft, nontender. No hepatosplenomegaly, normal bowel sounds, no guarding or rigidity. EXTREMITIES: No clubbing, no edema, no cyanosis, 2+ pulses and upper and lower extremities. MUSCULOSKELETAL: No deformities. SKIN: No rashes CENTRAL NERVOUS SYSTEM: Cannot assess, patient is sedated and paralyzed. PSYCHIATRIC: Could not assess - Labs CBC & Chem 7: 12/27/20 04:15 12/27/20 04:15 Labs: Abnormal Lab Results - Last 24 Hours (Table) 12/26/20 12/26/20 12/26/20 Range/Units 17:47 20:14 23:04 WBC (3.8-10.6) k/uL Plt Count (150-450) k/uL Neutrophils # (1.3-7.7) k/uL Lymphocytes # (1.0-4.8) k/uL D-Dimer (<0.60) mg/L FEU ABG pH (7.35-7.45) ABG pCO2 (35-45) mmHg Carbon Dioxide (22-30) mmol/L BUN (9-20) mg/dL Creatinine (0.66-1.25) mg/dL Glucose (74-99) mg/dL POC Glucose (mg/dL) 147 H 136 H 145 H (75-99) mg/dL Calcium (8.4-10.2) mg/dL Total Bilirubin (0.2-1.3) mg/dL AST (17-59) U/L Lactate Dehydrogenase (313-618) U/L C-Reactive Protein (<1.0) mg/dL Total Protein (6.3-8.2) g/dL Albumin (3.5-5.0) g/dL 12/27/20 12/27/20 12/27/20 Range/Units 04:15 04:15 04:15 WBC 13.0 H (3.8-10.6) k/uL Plt Count 109 L (150-450) k/uL Neutrophils # 12.3 H (1.3-7.7) k/uL Lymphocytes # 0.2 L (1.0-4.8) k/uL D-Dimer 4.71 H (<0.60) mg/L FEU ABG pH (7.35-7.45) ABG pCO2 (35-45) mmHg Carbon Dioxide 20 L (22-30) mmol/L BUN 76 H (9-20) mg/dL Creatinine 6.27 H (0.66-1.25) mg/dL Glucose 170 H (74-99) mg/dL POC Glucose (mg/dL) (75-99) mg/dL Calcium 6.6 L (8.4-10.2) mg/dL Total Bilirubin 1.5 H (0.2-1.3) mg/dL AST 110 H (17-59) U/L Lactate Dehydrogenase 2344 H (313-618) U/L C-Reactive Protein 37.2 H (<1.0) mg/dL Total Protein 4.8 L (6.3-8.2) g/dL Albumin 2.3 L (3.5-5.0) g/dL 12/27/20 12/27/20 12/27/20 Range/Units 05:07 05:21 11:35 WBC (3.8-10.6) k/uL Plt Count (150-450) k/uL Neutrophils # (1.3-7.7) k/uL Lymphocytes # (1.0-4.8) k/uL D-Dimer (<0.60) mg/L FEU ABG pH 7.24 L (7.35-7.45) ABG pCO2 56 H (35-45) mmHg Carbon Dioxide (22-30) mmol/L BUN (9-20) mg/dL Creatinine (0.66-1.25) mg/dL Glucose (74-99) mg/dL POC Glucose (mg/dL) 144 H 163 H (75-99) mg/dL Calcium (8.4-10.2) mg/dL Total Bilirubin (0.2-1.3) mg/dL AST (17-59) U/L Lactate Dehydrogenase (313-618) U/L C-Reactive Protein (<1.0) mg/dL Total Protein (6.3-8.2) g/dL Albumin (3.5-5.0) g/dL Microbiology - Last 24 Hours (Table) 12/25/20 16:30 Gram Stain - Final Sputum Sputum Culture - Final 12/25/20 16:30 Urine Culture - Final Urine,Catheterized 12/24/20 14:41 Blood Culture Gram Stain - Preliminary Blood Blood Culture - Preliminary Streptococcus pneumoniae 12/24/20 14:25 Blood Culture Gram Stain - Preliminary Blood Blood Culture - Preliminary Streptococcus pneumoniae Assessment and Plan Assessment: Impression: Acute hypoxic respiratory failure secondary to acute COVID-19 and secondary to Streptococcus pneumonia, and Streptococcus pneumoniae bacteremia. Septic shock secondary to above. Mostly secondary to Streptococcus pneumonia and Streptococcus bacteremia History of laryngeal cancer and previous laryngectomy followed by radiation treatment in 2015. And the tracheostomy. Acute lactic acidosis secondary to sepsis and septic shock. Acute kidney injury secondary to sepsis and septic shock. Acute troponin leak. History of COPD. History of hypothyroidism. History of hypertension. Recommendation: Continue ventilatory support. Vent settings were adjusted accordingly today. Start patient on hemodialysis as recommended by nephrology. Family seems to agreeable to proceed with dialysis however CODE STATUS changed to DO NOT RESUSCITATE. Continue nutritional support. Patient is on enteral feeding. Continue blood pressure support/pressors and fluids. Continue antibiotics / Zosyn and vancomycin, will likely discontinue vancomycin and continue Zosyn. Patient is not a candidate for redesivir and definitely not a candidate for baricitinib Continue COVID-19 cocktail. Continue GI and DVT prophylaxis. Continue to monitor daily x-rays and daily labs. Continue bronchodilators. Updated the on his condition, and she was made aware that he is critically ill, and mortality could be as high as 80%. CODE STATUS changed to DO NOT RESUSCITATE, and nephrology will initiate hemodialysis. Critical care time is over 30 minutes. We will continue to follow. Time with Patient: Greater than 30
--- NOTE | 2020-12-27 15:01 | P.PN ---
Subjective Progress Note Date: 12/27/20 History of present illness 60 years old male with past medical history of laryngeal cancer status post laryngectomy and radiation in 2015 status post tracheostomy, history of hypothyroidism, COPD, hypertension comes in with acute shortness of breath associated with cough with phlegm production, reddish to brownish in color, associated with fever or chills and fatigue. Patient states his grandchildren were sick and he caught the infection from them. He also endorses right-sided chest pain on deep breath. Patient was noted to be afebrile pulse of 110 respiratory rate 18 blood pressure 76/48 oxygen saturation 85% on room air. Oxygen improved to 92% on trach ordered. EKG was obtained patient was sinus tachycardia no ST segment deviation noted with QTc interval of 418. Chest x-ray 12/24 suggestive of mild strandy density left lower lobe with was consolidation involving the right upper lung concerning for overlying bacterial pneumonia. Labs reviewed suggested of a visible 4.4 hemoglobin 18.2 platelets 137 INR 1.1 bicarb 19 BUN 32 creatinine 2.29, lactic acid of 5.5 AST 116 ALT 60 troponin 0.238. COVID is positive. We will give the patient will complete total 3 L IV bolus of normal saline. One dose of Rocephin and azithromycin. Neck ER. Pulmonary is consulted. Patient initiated on Solu-Medrol 60 every 6. DuoNeb will be continued as needed for shortness of breath. Patient will be initiated on remdesivir. Cardiology was consulted with increase in troponin. 12/25 Patient is seen today on 12/25. Patient got intubated yesterday 12/19 5 in the evening as unable to maintain oxygenation on trach collar. Patient was placed on mechanical ventilator with the settings of assist control rate of 34 tidal volume 450 FiO2 90% and PEEP of 12. ABG was obtained with a pH of 7.15 pCO2 48 pO2 112. Patient started on norepinephrine drip, vasopressin drip, propofol, fentanyl, Pneumovax and and bicarb drip. NG tube will be placed today to help with intestinal feeding. Blood cultures are positive for gram-positive cocci. Antibiotics patient from ceftriaxone and azithromycin to Zosyn and vancomycin. Labs were reviewed, patient has a WBC 11.3 hemoglobin 16 platelet 177 chloride 114 bicarb 17 BUN 40 creatinine 2.65, glucose 185 lactic acid of 4 calcium 6.3. 12/26 Patient remains intubated on droplet precautions for COVID. Continues to remain intubated on 70% FiO2 PEEP of 16 respiratory rate 34 arm tidal volume of 450. Because of the patient's afebrile pulse 75 respiratory rate 30 4R blood pressure 107/62 oxygen saturation 91% on if I O2 of 70%. Labs are reviewed patient is an insulin-dependent hemoglobin 14.1 platelet 137 d-dimer is elevated at 1.4. 7.3 and 46 pO2 of 78. Insulin 37 potassium 5 bicarb 21 and 59 creatinine 4.17 glucose 264 calcium 6 ionized calcium 3.6, LDH 2155 CRP 3056.2 albumin 2. Urine output was 180 ml in the last 24 hour. She'll see one dose of IV Lasix 80 mg today. If no improvement in urine output. Patient will be placed on renal replacement therapy. One dose 2 g of calcium gluconate given. Patient continues to remain on vasopressin and was febrile fed for pressure. Solu-Medrol a 60 IV every 6. Lantus initiated 15 units. Lovenox increased to 100 mg subcu twice a day. 12/27: Patient remains in intensive care unit. Patient remains intubated and on mechanical ventilation with tidal volume 450, FiO2 55, PEEP of 16. Nephrology has seen the patient and plan for hemodialysis and dialysis catheter being plac ed at the time of this evaluation. Noted that he has been made a DO NOT RESUSCITATE status. Repeat blood work reveals LVH 2344, C-reactive protein 57. Repeat chest x-ray showing bilateral interstitial infiltrates. Blood cultures are positive for Streptococcus pneumoniae. Review of system Could not be obtained patient is intubated Physical exam Deferred to wellness specialist. Assessment and plan #1 septic shock secondary to COVID pneumonia with streptococcal pneumonia and streptococcal bacteremia. Patient is continued on Zosyn, vancomycin, continue vasopressor support, wellness specialist consult appreciated. Continue Lovenox 40 mg subcu twice daily, vitamin supplements, Solu-Medrol 60 mg IV every 6 hours. #2 acute hypoxic respiratory failure mechanically ventilated through tracheostomy since 12/24 secondary to COVID and superimposed bacterial pneumonia not a candidate for remdesivir. #3 acute COPD exacerbation Pulmicort twice daily inhaler, DuoNeb as needed for shortness of breath, incentive spirometry, sputum culture. Continue Solu-Medrol 60 IV every 6 hours #4 troponin elevation rule out ACS. EKG dated the first ST elevation depression. Likely type II myocardial infarction. Cardiology consulted. #5 hyperglycemia A1c ordered on steroids. Levemir 10 units at bedtime, insulin scale every 6 hours. #6 hypertension on hold losartan 50 mg by mouth daily #7 hypocalcemia s/p 2 g calcium gluconate ordered #[id number] continue omeprazole 40 mg by mouth daily #9 history of laryngeal cancer status post laryngectomy and radiation . Has tracheostomy currently on trach collar #10 acute kidney injury on CK D3. Baseline creatinine not known.continues to worsen On bicarb drip, patient to start hemodialysis #111 acute transaminitis likely secondary to COVID infection. Continue to monitor. #12 metabolic acidosis secondary to sepsis. On bicarb drip at 100 mL/h Continue IV fluids monitor labs #13 GI prophylaxis on omeprazole 40 mg by mouth dailyy #14 CODE STATUS full code # 15 hypothyroidism continue levothyroxine at 88 g by mouth daily #16 isolation droplet precautions for COVID #17 DVT prophylaxis heparin every 12 #18 disposition guarded prognosis Impression and plan of care have been directed as dictated by the signing physician. Gabriela Werner nurse practitioner acting as scribe for signing physician. Objective - Vital Signs Vital signs: Vital Signs Temp 99 F 12/27/20 12:00 Pulse 71 12/27/20 13:00 Resp 34 H 12/27/20 13:00 BP 118/66 12/27/20 13:00 Pulse Ox 89 L 12/27/20 13:00 Intake & Output 12/26/20 12/27/20 12/27/20 18:59 06:59 18:59 Intake Total 2873.944 5661.146 696.644 Output Total 280 280 45 Balance 1258.425 811.146 651.644 Weight 106.3 kg Intake: IV 576 276 161 .9 240 240 140 Dextrose 5% in Water 1, 300 000 ml @ 100 mls/hr IV . [id number] BUCK with Sodium Bicarb (1 Meq/ml) 150 ml Rx#:[id number] Pressure Bag 36 36 21 Intake, IV Titration 485.425 401.146 286.644 Amount Calcium Gluconate 2 gm In 100 Sodium Chloride 0.9% 100 ml @ 100 mls/hr IVPB ONCE ONE Rx#:[id number] Cisatracurium 200 mg In 200 188.012 183.668 Sodium Chloride 0.9% 180 ml @ 1 MCG/KG/MIN 6.205 mls/hr IV .Q24H BUCK Rx#: [id number] Norepinephrine 32 mg In 80.759 106.507 Sodium Chloride 0.9% 218 ml @ 0.5 MCG/KG/MIN 23. 813 mls/hr IV .[id number] BUCK Rx#:[id number] Piperacillin-Tazobactam 3 100 .375 gm In Sodium Chloride 0.9% 100 ml @ 25 mls/hr IVPB Q12H BUCK Rx# :[id number] fentaNYL (PF). 1,000 mcg 100 100 In Sodium Chloride 0.9% 80 ml @ 0.5 MCG/KG/HR 5. 171 mls/hr IV .[id number] BUCK Rx#:[id number] propofoL 1,000 mg In 4.666 6.627 2.976 Empty Bag 1 bag @ Titrate IV .Q0M BUCK Rx#: [id number] Tube Feeding 297 324 189 Other 180 90 60 Output: Urine 280 280 45 Other: Voiding Method Indwelling Catheter Indwelling Catheter Indwelling Catheter ABP, PAP, CO, CI - Last Documented Arterial Blood Pressure 93/51 - Labs CBC & Chem 7: 12/27/20 04:15 12/27/20 04:15 Labs: Abnormal Lab Results - Last 24 Hours (Table) 12/26/20 12/26/20 12/26/20 Range/Units 17:47 20:14 23:04 WBC (3.8-10.6) k/uL Plt Count (150-450) k/uL Neutrophils # (1.3-7.7) k/uL Lymphocytes # (1.0-4.8) k/uL D-Dimer (<0.60) mg/L FEU ABG pH (7.35-7.45) ABG pCO2 (35-45) mmHg Carbon Dioxide (22-30) mmol/L BUN (9-20) mg/dL Creatinine (0.66-1.25) mg/dL Glucose (74-99) mg/dL POC Glucose (mg/dL) 147 H 136 H 145 H (75-99) mg/dL Calcium (8.4-10.2) mg/dL Total Bilirubin (0.2-1.3) mg/dL AST (17-59) U/L Lactate Dehydrogenase (313-618) U/L C-Reactive Protein (<1.0) mg/dL Total Protein (6.3-8.2) g/dL Albumin (3.5-5.0) g/dL 12/27/20 12/27/20 12/27/20 Range/Units 04:15 04:15 04:15 WBC 13.0 H (3.8-10.6) k/uL Plt Count 109 L (150-450) k/uL Neutrophils # 12.3 H (1.3-7.7) k/uL Lymphocytes # 0.2 L (1.0-4.8) k/uL D-Dimer 4.71 H (<0.60) mg/L FEU ABG pH (7.35-7.45) ABG pCO2 (35-45) mmHg Carbon Dioxide 20 L (22-30) mmol/L BUN 76 H (9-20) mg/dL Creatinine 6.27 H (0.66-1.25) mg/dL Glucose 170 H (74-99) mg/dL POC Glucose (mg/dL) (75-99) mg/dL Calcium 6.6 L (8.4-10.2) mg/dL Total Bilirubin 1.5 H (0.2-1.3) mg/dL AST 110 H (17-59) U/L Lactate Dehydrogenase 2344 H (313-618) U/L C-Reactive Protein 37.2 H (<1.0) mg/dL Total Protein 4.8 L (6.3-8.2) g/dL Albumin 2.3 L (3.5-5.0) g/dL 12/27/20 12/27/20 12/27/20 Range/Units 05:07 05:21 11:35 WBC (3.8-10.6) k/uL Plt Count (150-450) k/uL Neutrophils # (1.3-7.7) k/uL Lymphocytes # (1.0-4.8) k/uL D-Dimer (<0.60) mg/L FEU ABG pH 7.24 L (7.35-7.45) ABG pCO2 56 H (35-45) mmHg Carbon Dioxide (22-30) mmol/L BUN (9-20) mg/dL Creatinine (0.66-1.25) mg/dL Glucose (74-99) mg/dL POC Glucose (mg/dL) 144 H 163 H (75-99) mg/dL Calcium (8.4-10.2) mg/dL Total Bilirubin (0.2-1.3) mg/dL AST (17-59) U/L Lactate Dehydrogenase (313-618) U/L C-Reactive Protein (<1.0) mg/dL Total Protein (6.3-8.2) g/dL Albumin (3.5-5.0) g/dL Microbiology - Last 24 Hours (Table) 12/25/20 16:30 Gram Stain - Final Sputum Sputum Culture - Final 12/25/20 16:30 Urine Culture - Final Urine,Catheterized 12/24/20 14:41 Blood Culture Gram Stain - Preliminary Blood Blood Culture - Preliminary Streptococcus pneumoniae 12/24/20 14:25 Blood Culture Gram Stain - Preliminary Blood Blood Culture - Preliminary Streptococcus pneumoniae
[2020-12-27 16:55] LABS: Glucose,Whole Blood 119 mg/dL (75-99)
--- NOTE | 2020-12-27 17:07 | PCN ---
PROCEDURE NOTE PREOPERATIVE DIAGNOSIS: Acute on chronic renal failure in a COVID-positive patient. POSTOPERATIVE DIAGNOSIS: Acute on chronic renal failure in a COVID-positive patient. PROCEDURE: Placement of a dialysis catheter via ultrasound-guided right femoral approach. PROCEDURE DESCRIPTION: The patient was seen in the room. Right groin was prepped and draped in usual sterile manner. Lidocaine 1% was infiltrated in the groin area. Ultrasound-guided micropuncture was introduced in right common femoral vein. Micropuncture guidewire was passed and a 4-Tunisian dilator was advanced on top of the guidewire. After that we passed a regular guidewire. A tunnel was created. After that we placed a dialysis catheter on top of the guidewire. There was free flow noted, flushed with heparin saline and hep-locked, secured with 3-0 nylon. Patient tolerated the procedure well. SHITAL / ERVINN: [id number] /
[2020-12-27] MEDS: INSULIN DETEMIR (LEVEMIR) 100 UNIT/ML SYR SQ SCH (20:56)
[2020-12-27] MEDS ORDERED: HEPARIN SOD,PORK IN 0.45% NACL 25,000 UNIT in 0.45% NACL 1 250ML.BAG IV ONE (23:43)
[2020-12-27] MEDS ORDERED: SODIUM CHLORIDE 0.9% 1,000 ML IV ONE (23:44)
[2020-12-27] MEDS ORDERED: DEXTROSE 5% IN WATER 100 ML with AMIODARONE 150 MG IV ONE (23:50)
[2020-12-28] MEDS: PIPERACILLIN-TAZOBACTAM 3.375 GM in SODIUM CHLORIDE 0.9% 100 ML IVPB SCH ×3 (00:05→23:34)
[2020-12-28] MEDS ORDERED: AMIODARONE 360 MG in DEXTROSE 5% IN WATER 200 ML IV ONE ×2 (00:15)
[2020-12-28 00:19] LABS: Glucose,Whole Blood 181 mg/dL (75-99)
[2020-12-28] MEDS: INSULIN ASPART (NovoLOG) 100 UNIT/ML VIAL SQ SCH ×6 (00:21→23:55)
[2020-12-28] MEDS: methylPREDNISolone SOD SUCCI 125 MG/2 ML VIAL IV SCH ×5 (00:22→23:34)
[2020-12-28] MEDS: CISATRACURIUM 200 MG in SODIUM CHLORIDE 0.9% 180 ML IV SCH ×2 (03:15→17:37)
[2020-12-28] MEDS: NOREPINEPHRINE 32 MG in SODIUM CHLORIDE 0.9% 218 ML IV SCH ×3 (03:16→21:30)
[2020-12-28] MEDS: fentaNYL (PF). 1,000 MCG in SODIUM CHLORIDE 0.9% 80 ML IV SCH ×2 (03:17→17:37)
[2020-12-28 03:48] LABS: Hepatitis B Surface AB- Quant 3.5 mIU/mL; Hepatitis B Surface Antibody Nonreactive (Nonreactive); Hepatitis B Surface Antigen Nonreactive (Nonreactive)
[2020-12-28] MEDS: AMIODARONE 450 MG in DEXTROSE 5% IN WATER 250 ML IV SCH ×4 (05:09→20:15)
[2020-12-28 05:28] LABS: ABG Base Excess -5.5 mmol/L; ABG HCO3 23 mmol/L (21-25); ABG Oxygen Saturation 88.1 % (94-97); ABG PCO2 60 mmHg (35-45); ABG PO2 65 mmHg (83-108); ABG TCO2 25 mmol/L (19-24)
[2020-12-28 05:31] LABS: ABG PH 7.19 (7.35-7.45)
[2020-12-28 05:31] LABS: Glucose,Whole Blood 237 mg/dL (75-99)
[2020-12-28] MEDS ORDERED: VANCOMYCIN 1,750 MG in SODIUM CHLORIDE 0.9% 500 ML 500 ML IVPB ONE (06:00)
[2020-12-28] MEDS: LEVOTHYROXINE 88 MCG TAB PO SCH (06:40)
[2020-12-28] MEDS ORDERED: HEPARIN SODIUM 1,000 UN/ML (10ML VL) IV PRN (07:03)
[2020-12-28] MEDS ORDERED: HEPARIN SODIUM 1,000 UN/ML (10ML VL) IV ONE (07:03)
--- NOTE | 2020-12-28 07:04 | XR ---
EXAMINATION TYPE: XR chest 1V portable DATE OF EXAM: 12/28/2020 COMPARISON: 12/27/2020 INDICATION: Tube placement TECHNIQUE: Single frontal view of the chest is obtained. FINDINGS: The heart size is normal. The pulmonary vasculature is normal. Diffuse infiltrate is present bilaterally. Findings are worsening over the interval. Tracheostomy tube is in the midline. Nasogastric tube transverses the thorax the tip in the left uppe r quadrant of the abdomen. IMPRESSION: 1. There appears to be some worsening of the bilateral lung infiltrates. Continued follow-up is recom mended. 2. Lines and catheters discussed above
[2020-12-28] MEDS: HEPARIN SOD,PORK IN 0.45% NACL 25,000 UNIT in 0.45% NACL 1 250ML.BAG IV SCH (08:18)
[2020-12-28] MEDS: ALBUTEROL HFA INHALER INHALATION PRN ×2 (08:21→12:17)
[2020-12-28 08:50] LABS: ABG Base Excess -5.8 mmol/L; ABG HCO3 22 mmol/L (21-25); ABG Oxygen Saturation 90.1 % (94-97); ABG PCO2 55 mmHg (35-45); ABG PH 7.21 (7.35-7.45); ABG PO2 69 mmHg (83-108); ABG TCO2 24 mmol/L (19-24); Allen Test Performed? Yes
[2020-12-28 09:06] LABS: Basophils % (A) 0 %; Eosinophils % (A) 0 %; HCT 34.9 % (39.0-53.0); HGB 11.4 gm/dL (13.0-17.5); Lymphocytes # (A) 0.1 k/uL (1.0-4.8); Lymphocytes % (A) 1 %; MCH 30.4 pg (25.0-35.0); MCHC 32.8 g/dL (31.0-37.0); MCV 92.9 fL (80.0-100.0); Mean Platelet Volume 9.6; Monocytes # (A) 0.3 k/uL (0-1.0); Monocytes % (A) 2 %; Neutrophils # (A) 14.1 k/uL (1.3-7.7); Neutrophils % (A) 96 %; Platelet Count 112 k/uL (150-450); RBC 3.76 m/uL (4.30-5.90); RDW 14.2 % (11.5-15.5); WBC 14.7 k/uL (3.8-10.6)
[2020-12-28 09:22] LABS: Calcium 6.7 mg/dL (8.4-10.2); Potassium 5.8 mmol/L (3.5-5.1)
[2020-12-28] MEDS: PANTOPRAZOLE 40 MG/10 ML VIAL IVP SCH (09:28)
[2020-12-28] MEDS: ZINC SULFATE 220 MG CAP PO SCH (09:29)
[2020-12-28] MEDS: METOPROLOL TARTRATE 25 MG TAB PO SCH ×2 (09:29→20:10)
[2020-12-28] MEDS: CHLORHEXIDINE GLUCONATE 15 ML CUP MUCOUS MEM SCH ×2 (09:29→20:10)
[2020-12-28] MEDS: ASCORBIC ACID 500 MG TAB PO SCH ×2 (09:29→20:11)
[2020-12-28] MEDS: SODIUM CHLORIDE 0.9% 150 ML with VASOPRESSIN 60 UNIT IV SCH ×2 (09:47)
[2020-12-28 09:48] VITALS: BMI 35.4
[2020-12-28] MEDS: CHOLECALCIFEROL 25 MCG (1000 IU) TABLET PO SCH (09:52)
--- NOTE | 2020-12-28 10:06 | P.PN ---
Subjective Patient is seen in follow-up for acute kidney injury. Started on hemodialysis December 27. Oliguric. Went into A. fib with RVR last night and is maintained on amiodarone and heparin drip. Remains on Levophed. Off vasopressin. Vital signs are stable. On vasopressor support. Patient has a tracheostomy. HEART: Irregular rate and rhythm. Lungs: Breath sounds decreased. EXTREMITITES: No gross edema. Objective - Vital Signs Vital signs: Vital Signs Temp 98.2 F 12/28/20 08:00 Pulse 111 H 12/28/20 09:00 Resp 36 H 12/28/20 09:00 BP 132/93 12/28/20 09:00 Pulse Ox 85 L 12/28/20 09:00 Intake & Output 12/27/20 12/28/20 12/28/20 18:59 06:59 18:59 Intake Total 5813.537 3112.241 165.142 Output Total 150 65 10 Balance 7304.214 6502.241 155.142 Weight 112 kg 112 kg Intake: IV 276 276 36 .9 240 240 30 Pressure Bag 36 36 6 Intake, IV Titration 664.835 347.241 45.142 Amount Cisatracurium 200 mg In 370.128 167.225 Sodium Chloride 0.9% 180 ml @ 1 MCG/KG/MIN 6.205 mls/hr IV .Q24H BUCK Rx#: [id number] Norepinephrine 32 mg In 91.731 79.894 45.142 Sodium Chloride 0.9% 218 ml @ 0.5 MCG/KG/MIN 23. 813 mls/hr IV .[id number] BUCK Rx#:[id number] Piperacillin-Tazobactam 3 100 .375 gm In Sodium Chloride 0.9% 100 ml @ 25 mls/hr IVPB Q12H BUCK Rx# :[id number] fentaNYL (PF). 1,000 mcg 100 93.078 In Sodium Chloride 0.9% 80 ml @ 0.5 MCG/KG/HR 5. 171 mls/hr IV .[id number] BUCK Rx#:[id number] propofoL 1,000 mg In 2.976 7.044 Empty Bag 1 bag @ Titrate IV .Q0M BUCK Rx#: [id number] Tube Feeding 324 324 54 Hemodialysis 300 Other 90 60 30 Output: Urine 150 65 10 Hemodialysis 0 Other: Voiding Method Indwelling Catheter Indwelling Catheter ABP, PAP, CO, CI - Last Documented Arterial Blood Pressure 139/71 - Labs CBC & Chem 7: 12/28/20 08:40 12/28/20 08:40 Labs: Abnormal Lab Results - Last 24 Hours (Table) 12/27/20 12/27/20 12/27/20 Range/Units 04:15 11:35 16:53 WBC (3.8-10.6) k/uL RBC (4.30-5.90) m/uL Hgb (13.0-17.5) gm/dL Hct (39.0-53.0) % Plt Count (150-450) k/uL Neutrophils # (1.3-7.7) k/uL Lymphocytes # (1.0-4.8) k/uL ABG pH (7.35-7.45) ABG pCO2 (35-45) mmHg ABG pO2 (83-108) mmHg ABG Total CO2 (19-24) mmol/L ABG O2 Saturation (94-97) % Sodium (137-145) mmol/L Potassium (3.5-5.1) mmol/L Carbon Dioxide (22-30) mmol/L BUN (9-20) mg/dL Creatinine (0.66-1.25) mg/dL Glucose (74-99) mg/dL POC Glucose (mg/dL) 163 H 119 H (75-99) mg/dL Hemoglobin A1c 6.2 H (4.0-6.0) % Calcium (8.4-10.2) mg/dL TSH (0.465-4.680) mIU/L 12/28/20 12/28/20 12/28/20 Range/Units 00:17 05:24 05:28 WBC (3.8-10.6) k/uL RBC (4.30-5.90) m/uL Hgb (13.0-17.5) gm/dL Hct (39.0-53.0) % Plt Count (150-450) k/uL Neutrophils # (1.3-7.7) k/uL Lymphocytes # (1.0-4.8) k/uL ABG pH 7.19 L* (7.35-7.45) ABG pCO2 60 H (35-45) mmHg ABG pO2 65 L (83-108) mmHg ABG Total CO2 25 H (19-24) mmol/L ABG O2 Saturation 88.1 L (94-97) % Sodium (137-145) mmol/L Potassium (3.5-5.1) mmol/L Carbon Dioxide (22-30) mmol/L BUN (9-20) mg/dL Creatinine (0.66-1.25) mg/dL Glucose (74-99) mg/dL POC Glucose (mg/dL) 181 H 237 H (75-99) mg/dL Hemoglobin A1c (4.0-6.0) % Calcium (8.4-10.2) mg/dL TSH (0.465-4.680) mIU/L 12/28/20 12/28/20 12/28/20 Range/Units 08:40 08:40 08:46 WBC 14.7 H (3.8-10.6) k/uL RBC 3.76 L (4.30-5.90) m/uL Hgb 11.4 L (13.0-17.5) gm/dL Hct 34.9 L (39.0-53.0) % Plt Count 112 L (150-450) k/uL Neutrophils # 14.1 H (1.3-7.7) k/uL Lymphocytes # 0.1 L (1.0-4.8) k/uL ABG pH 7.21 L (7.35-7.45) ABG pCO2 55 H (35-45) mmHg ABG pO2 69 L (83-108) mmHg ABG Total CO2 (19-24) mmol/L ABG O2 Saturation 90.1 L (94-97) % Sodium 136 L (137-145) mmol/L Potassium 5.8 H (3.5-5.1) mmol/L Carbon Dioxide 19 L (22-30) mmol/L BUN 79 H (9-20) mg/dL Creatinine 6.70 H (0.66-1.25) mg/dL Glucose 190 H (74-99) mg/dL POC Glucose (mg/dL) (75-99) mg/dL Hemoglobin A1c (4.0-6.0) % Calcium 6.7 L (8.4-10.2) mg/dL TSH 0.153 L (0.465-4.680) mIU/L Microbiology - Last 24 Hours (Table) 12/24/20 14:41 Blood Culture Gram Stain - Final Blood Blood Culture - Final Streptococcus pneumoniae 12/24/20 14:25 Blood Culture Gram Stain - Final Blood Blood Culture - Final Streptococcus pneumoniae 12/25/20 16:30 Gram Stain - Final Sputum Sputum Culture - Final Assessment and Plan Plan: Assessment: 1. Acute kidney injury secondary to ATN secondary to septic shock. Started on hemodialysis via femoral catheter on December 27. Oliguric. Unknown baseline renal function. No hydronephrosis noted on kidney ultrasound. 2. Septic shock secondary to strep pneumo bacteremia as well as COVID-19 infection. On Levophed. 3. Metabolic acidosis secondary to acute kidney injury status post bicarb drip. 4. History of laryngeal cancer status post tracheostomy. 5. Hypocalcemia secondary to acute kidney injury. Corrected calcium 8.2 as of yesterday. Replaced. Improved. 6. A. fib with RVR maintained on amiodarone and heparin drip. 7. Hyperkalemia secondary to acute kidney injury and metabolic acidosis. Plan: Second treatment of hemodialysis today. Plan for another treatment tomorrow. Maintain tube feeds. Wean FiO2 and vasopressors. Continue to monitor renal function and urine output. Phosphorus 4.5. Monitor vancomycin level. Dose to be adjusted for renal function. Follow-up echocardiogram.
[2020-12-28 10:23] LABS: T4, Free (Free Thyroxine) 0.69 ng/dL (0.78-2.19)
--- NOTE | 2020-12-28 10:55 | ECHOF ---
Referral Reason:afib MEASUREMENTS -------- HEIGHT: 177.8 cm WEIGHT: 111.6 kg BP: 118/61 RAP: 15.00 mmHg RVSP: 27.86 mmHg FINDINGS -------- Limited Study Overall left ventricular systolic function is mild-moderately impaired with, an EF between 40 - 45 %. CONCLUSIONS -------- 1. Overall left ventricular systolic function is mild-moderately impaired with, an EF between 40 - 45 %. [employer] T[employer] HEL[employer] HEAD: Keshia Lizama RDCS
--- NOTE | 2020-12-28 12:43 | P.PN ---
Subjective Progress Note Date: 12/28/20 History of present illness 60 years old male with past medical history of laryngeal cancer status post laryngectomy and radiation in 2015 status post tracheostomy, history of hypothyroidism, COPD, hypertension comes in with acute shortness of breath associated with cough with phlegm production, reddish to brownish in color, associated with fever or chills and fatigue. Patient states his grandchildren were sick and he caught the infection from them. He also endorses right-sided chest pain on deep breath. Patient was noted to be afebrile pulse of 110 respiratory rate 18 blood pressure 76/48 oxygen saturation 85% on room air. Oxygen improved to 92% on trach ordered. EKG was obtained patient was sinus tachycardia no ST segment deviation noted with QTc interval of 418. Chest x-ray 12/24 suggestive of mild strandy density left lower lobe with was consolidation involving the right upper lung concerning for overlying bacterial pneumonia. Labs reviewed suggested of a visible 4.4 hemoglobin 18.2 platelets 137 INR 1.1 bicarb 19 BUN 32 creatinine 2.29, lactic acid of 5.5 AST 116 ALT 60 troponin 0.238. COVID is positive. We will give the patient will complete total 3 L IV bolus of normal saline. One dose of Rocephin and azithromycin. Neck ER. Pulmonary is consulted. Patient initiated on Solu-Medrol 60 every 6. DuoNeb will be continued as needed for shortness of breath. Patient will be initiated on remdesivir. Cardiology was consulted with increase in troponin. 12/25 Patient is seen today on 12/25. Patient got intubated yesterday 12/19 5 in the evening as unable to maintain oxygenation on trach collar. Patient was placed on mechanical ventilator with the settings of assist control rate of 34 tidal volume 450 FiO2 90% and PEEP of 12. ABG was obtained with a pH of 7.15 pCO2 48 pO2 112. Patient started on norepinephrine drip, vasopressin drip, propofol, fentanyl, Pneumovax and and bicarb drip. NG tube will be placed today to help with intestinal feeding. Blood cultures are positive for gram-positive cocci. Antibiotics patient from ceftriaxone and azithromycin to Zosyn and vancomycin. Labs were reviewed, patient has a WBC 11.3 hemoglobin 16 platelet 177 chloride 114 bicarb 17 BUN 40 creatinine 2.65, glucose 185 lactic acid of 4 calcium 6.3. 12/26 Patient remains intubated on droplet precautions for COVID. Continues to remain intubated on 70% FiO2 PEEP of 16 respiratory rate 34 arm tidal volume of 450. Because of the patient's afebrile pulse 75 respiratory rate 30 4R blood pressure 107/62 oxygen saturation 91% on if I O2 of 70%. Labs are reviewed patient is an insulin-dependent hemoglobin 14.1 platelet 137 d-dimer is elevated at 1.4. 7.3 and 46 pO2 of 78. Insulin 37 potassium 5 bicarb 21 and 59 creatinine 4.17 glucose 264 calcium 6 ionized calcium 3.6, LDH 2155 CRP 3056.2 albumin 2. Urine output was 180 ml in the last 24 hour. She'll see one dose of IV Lasix 80 mg today. If no improvement in urine output. Patient will be placed on renal replacement therapy. One dose 2 g of calcium gluconate given. Patient continues to remain on vasopressin and was febrile fed for pressure. Solu-Medrol a 60 IV every 6. Lantus initiated 15 units. Lovenox increased to 100 mg subcu twice a day. 12/27: Patient remains in intensive care unit. Patient remains intubated and on mechanical ventilation with tidal volume 450, FiO2 55, PEEP of 16. Nephrology has seen the patient and plan for hemodialysis and dialysis catheter being plac ed at the time of this evaluation. Noted that he has been made a DO NOT RESUSCITATE status. Repeat blood work reveals LVH 2344, C-reactive protein 57. Repeat chest x-ray showing bilateral interstitial infiltrates. Blood cultures are positive for Streptococcus pneumoniae. 12/28: Patient remains in the intensive care unit, intubated and on mechanical ventilation with tidal volume 450, FiO2 is increased to 100 during the night, PEEP 16. Heart rate is running in the 1 teens, respiratory rate 36, pulse ox 87%. Patient has been afebrile. Repeat blood work reveals WBC 14.7, hemoglobin 11.4, platelet count 112. Sodium 136, potassium 5.8, chloride 103, CO2 19, BUN 79 creatinine 6.7. TSH 0.153, free T4 0.69 urea blood sugars are running 181- 237. He is status post right femoral dialysis catheter placement by Dr. Ann and was started on hemodialysis yesterday. Patient has been oliguric. Patient also went into A. fib with RVR and started on amiodarone and heparin. Patient is on levo fed, propofol, Nimbex,, fentanyl. He is off vasopressin. Patient was made no code yesterday. Review of system Could not be obtained patient is intubated Physical exam Deferred to automatic cigar wrapper tender. Assessment and plan #1 septic shock secondary to COVID pneumonia with streptococcal pneumonia and st reptococcal bacteremia. Patient is continued on Zosyn, vancomycin, continue vasopressor support, automatic cigar wrapper tender consult appreciated. Continue vitamin supplements, Solu-Medrol 60 mg IV every 6 hours. #2 acute hypoxic respiratory failure mechanically ventilated through tracheostomy since 12/24 secondary to COVID and superimposed bacterial pneumonia not a candidate for remdesivir. #3 acute COPD exacerbation Pulmicort twice daily inhaler, DuoNeb as needed for shortness of breath, incentive spirometry, sputum culture. Continue Solu-Medrol 60 IV every 6 hours #4 troponin elevation rule out ACS. EKG dated the first ST elevation depression. Likely type II myocardial infarction. Cardiology consulted. #5 hyperglycemia A1c ordered on steroids. Levemir 10 units at bedtime, insulin scale every 6 hours. #6 hypertension. Hold losartan 50 mg by mouth daily #7 hypocalcemia s/p calcium gluconate. #8 GERD and GI prophylaxis. Continue Protonix 40 mg IV daily. #9 history of laryngeal cancer status post laryngectomy and radiation . Has tracheostomy currently on trach collar #10 acute kidney injury on CK D3. Status post femoral dialysis cath and started dialysis 12/27. Nephrology consult appreciated. Repeat dialysis scheduled for today. #11 acute transaminitis likely secondary to COVID infection. Continue to monitor. #12 metabolic acidosis secondary to sepsis. #13 new-onset paroxysmal atrial fibrillation. Patient is on amiodarone drip and heparin drip. #14 hypothyroidism continue levothyroxine at 88 g by mouth daily #15 DVT prophylaxis. Heparin drip. CODE STATUS: No code. Prognosis guarded Impression and plan of care have been directed as dictated by the signing physician. Gabriela Werner nurse practitioner acting as scribe for signing physician. Objective - Vital Signs Vital signs: Vital Signs Temp 98.2 F 12/28/20 08:00 Pulse 116 H 12/28/20 11:00 Resp 36 H 12/28/20 11:00 BP 132/93 12/28/20 09:00 Pulse Ox 87 L 12/28/20 11:00 Intake & Output 12/27/20 12/28/20 12/28/20 18:59 06:59 18:59 Intake Total 2042.464 8804.241 252.426 Output Total 150 65 10 Balance 4012.227 6438.241 242.426 Weight 112 kg 112 kg Intake: IV 276 276 62 .9 240 240 50 Pressure Bag 36 36 12 Intake, IV Titration 664.835 347.241 52.426 Amount Cisatracurium 200 mg In 370.128 167.225 Sodium Chloride 0.9% 180 ml @ 1 MCG/KG/MIN 6.205 mls/hr IV .Q24H BUCK Rx#: [id number] Norepinephrine 32 mg In 91.731 79.894 49.047 Sodium Chloride 0.9% 218 ml @ 0.5 MCG/KG/MIN 23. 813 mls/hr IV .[id number] BUCK Rx#:[id number] Piperacillin-Tazobactam 3 100 .375 gm In Sodium Chloride 0.9% 100 ml @ 25 mls/hr IVPB Q12H BUCK Rx# :[id number] fentaNYL (PF). 1,000 mcg 100 93.078 In Sodium Chloride 0.9% 80 ml @ 0.5 MCG/KG/HR 5. 171 mls/hr IV .[id number] BUCK Rx#:[id number] propofoL 1,000 mg In 2.976 7.044 3.379 Empty Bag 1 bag @ Titrate IV .Q0M BUCK Rx#: [id number] Tube Feeding 324 324 108 Hemodialysis 300 Other 90 60 30 Output: Urine 150 65 10 Hemodialysis 0 Other: Voiding Method Indwelling Catheter Indwelling Catheter ABP, PAP, CO, CI - Last Documented Arterial Blood Pressure 99/54 - Labs CBC & Chem 7: 12/28/20 08:40 12/28/20 08:40 Labs: Abnormal Lab Results - Last 24 Hours (Table) 12/27/20 12/27/20 12/28/20 Range/Units 04:15 16:53 00:17 WBC (3.8-10.6) k/uL RBC (4.30-5.90) m/uL Hgb (13.0-17.5) gm/dL Hct (39.0-53.0) % Plt Count (150-450) k/uL Neutrophils # (1.3-7.7) k/uL Lymphocytes # (1.0-4.8) k/uL ABG pH (7.35-7.45) ABG pCO2 (35-45) mmHg ABG pO2 (83-108) mmHg ABG Total CO2 (19-24) mmol/L ABG O2 Saturation (94-97) % Sodium (137-145) mmol/L Potassium (3.5-5.1) mmol/L Carbon Dioxide (22-30) mmol/L BUN (9-20) mg/dL Creatinine (0.66-1.25) mg/dL Glucose (74-99) mg/dL POC Glucose (mg/dL) 119 H 181 H (75-99) mg/dL Hemoglobin A1c 6.2 H (4.0-6.0) % Calcium (8.4-10.2) mg/dL TSH (0.465-4.680) mIU/L Free T4 (0.78-2.19) ng/dL 12/28/20 12/28/20 12/28/20 Range/Units 05:24 05:28 08:40 WBC 14.7 H (3.8-10.6) k/uL RBC 3.76 L (4.30-5.90) m/uL Hgb 11.4 L (13.0-17.5) gm/dL Hct 34.9 L (39.0-53.0) % Plt Count 112 L (150-450) k/uL Neutrophils # 14.1 H (1.3-7.7) k/uL Lymphocytes # 0.1 L (1.0-4.8) k/uL ABG pH 7.19 L* (7.35-7.45) ABG pCO2 60 H (35-45) mmHg ABG pO2 65 L (83-108) mmHg ABG Total CO2 25 H (19-24) mmol/L ABG O2 Saturation 88.1 L (94-97) % Sodium (137-145) mmol/L Potassium (3.5-5.1) mmol/L Carbon Dioxide (22-30) mmol/L BUN (9-20) mg/dL Creatinine (0.66-1.25) mg/dL Glucose (74-99) mg/dL POC Glucose (mg/dL) 237 H (75-99) mg/dL Hemoglobin A1c (4.0-6.0) % Calcium (8.4-10.2) mg/dL TSH (0.465-4.680) mIU/L Free T4 (0.78-2.19) ng/dL 12/28/20 12/28/20 Range/Units 08:40 08:46 WBC (3.8-10.6) k/uL RBC (4.30-5.90) m/uL Hgb (13.0-17.5) gm/dL Hct (39.0-53.0) % Plt Count (150-450) k/uL Neutrophils # (1.3-7.7) k/uL Lymphocytes # (1.0-4.8) k/uL ABG pH 7.21 L (7.35-7.45) ABG pCO2 55 H (35-45) mmHg ABG pO2 69 L (83-108) mmHg ABG Total CO2 (19-24) mmol/L ABG O2 Saturation 90.1 L (94-97) % Sodium 136 L (137-145) mmol/L Potassium 5.8 H (3.5-5.1) mmol/L Carbon Dioxide 19 L (22-30) mmol/L BUN 79 H (9-20) mg/dL Creatinine 6.70 H (0.66-1.25) mg/dL Glucose 190 H (74-99) mg/dL POC Glucose (mg/dL) (75-99) mg/dL Hemoglobin A1c (4.0-6.0) % Calcium 6.7 L (8.4-10.2) mg/dL TSH 0.153 L (0.465-4.680) mIU/L Free T4 0.69 L (0.78-2.19) ng/dL Microbiology - Last 24 Hours (Table) 12/24/20 14:41 Blood Culture Gram Stain - Final Blood Blood Culture - Final Streptococcus pneumoniae 12/24/20 14:25 Blood Culture Gram Stain - Final Blood Blood Culture - Final Streptococcus pneumoniae 12/25/20 16:30 Gram Stain - Final Sputum Sputum Culture - Final
[2020-12-28 13:01] LABS: Glucose,Whole Blood 205 mg/dL (75-99)
--- NOTE | 2020-12-28 13:25 | P.PN ---
Subjective Progress Note Date: 12/28/20 Principal diagnosis: Acute hypoxic respiratory failure secondary to: 19 pneumonia, possible aspiration pneumonia, and septic shock with bacteremia This is a 60-year-old white male patient past medical history of laryngeal cancer (squamous cell carcinoma) with history of laryngectomy and radiation in 2015, status post tracheostomy, history of hypothyroidism, COPD, hypertension. Patient came into the emergency department on 12/24/2020 for evaluation of acute shortness of breath, associated with cough and phlegm production. He is producing reddish to brownish colored phlegm, he had fever, chills and fatigue. Patient states one of his grandchildren was sick, and he believes he may have caught the infection from them. He endorses right-sided chest pain with a deep inspiration. In the emergency department since he was hypotensive with blood pressure of 76/48, and his pulse ox was 70% on room air. He currently has a non-cuffed cannula this inserted into his tracheotomy opening in his neck, he was placed on 92% trach collar, however his pulse ox is still 83%. Patient is audibly congested and short of breath. He is using accessory muscles of breathing. He is using of voice box to respond verbally, he is tachycardic on the monitor, but in sinus mechanism. His chest x-ray showed mild strandy density at the left lower lobe with consolidation involving the right upper lung concerning for bacterial pneumonia possibly aspiration related pneumonia. His labs showed white blood cell count of 4.4, hemoglobin of 18.2, platelets of 137, INR 1.1, BUN of 32, creatinine of 2.29, lactic acid was 5.5, AST was 116, ALT was 60, troponin was 0.238. COVID-19 PCR was positive. Patient was started on fluid resuscitation and will be given a total of 3 L and IV fluid boluses. He was initially started on Rocephin and azithromycin in the emergency department. He was started on IV Solu-Medrol 60 g every 6 hours and nebulized bronchodilators. Is currently still requiring high flow oxygen per trach collar, still remains very hypoxic, and short of breath. He will be transferred to the ICU, and the tracheostomy will be placed and patient will be placed on the mechanical ventilator. Patient was reevaluated today on 12/25/20, patient remains intubated and mechanically ventilated. His ventilator settings are assist control rate of 34 volume 450 FiO2 90% and we cut it down to 70%, PEEP is at 12. ABG showed a pO2 of 112 pCO2 48 pH of 7.15. Patient remains on bicarb drip, norepinephrine at 0.5 mcg/kg/m, Nimbex, and vasopressin. To maintain adequate blood pressure. Patient received earlier this morning sodium bicarb and received fluid boluses total of 5 L since admission. Blood cultures came back positive for gram- positive cocci. Identification is pending. In the meantime the patient is on antibiotics in the form of Zosyn and vancomycin. Labs today were reviewed, electrolytes are normal renal profile is about the same compared to yesterday with a BUN of 40 creatinine 2.65, lactic acid is 4.0 this morning. And blood sugar is 197. Chest x-ray shows right upper lobe reticular nodular opacity and left lower lobe as well as right lower lobe bibasilar opacities. Reevaluated today on 12/26/20, patient remains in the ICU, intubated and mechanically ventilated. He is on assist control rate of 34 Tylenol volume 450 FiO2 of 70% PEEP is 12 and I increased the PEEP up to 16 today. ABG showed a pO2 of 78 pCO2 of 46 pH of 7.32. Patient remains on propofol at 45, Nimbex at 3, IV fluid at KVO. He remains on bicarb drip, norepinephrine at 0.18 mcg/kg/m, fentanyl 1 mcg/kg per hour. And is also on a bicarb drip. After noticing the ABG and his electrolytes, his bicarb was discontinued. Since his bicarb is 21 today on the electrolytes. WBC count is 10.7 hemoglobin is 14.1. Platelets are 137. D-dimer is 1.41 blood cultures on admission were positive for gram- positive cocci. Sputum cultures so far nondiagnostic. Many gram-positive cocci noted, and many polymorphonuclears noted in the sputum sample chest x-ray showed diffuse increased lung markings right more so than left, and also increased markings in the left lower lobe. As well as right upper lobe. Renal ultrasound is basically unremarkable. No hydronephrosis noted. Antibiotics kelley, patient remains on Zosyn. And vancomycin. Reevaluated today on 12/27/20, patient remains in the ICU, intubated and mechanically ventilated. Remains on assist control rate of 34 tidal volume 450 FiO2 70%, and I cut it down to 60%, PEEP of 16 ABG showed a pO2 of 89 pCO2 56 pH of 7.24, however I noted there was a bit of a leak around the cuff of the endotracheal tube, and after adjustment of the endotracheal tube and put more air in the cuff, noted better tidal volumes and I would assume that has fixed his hypercapnia. Patient remains on propofol at 65, fentanyl 1 mcg/kg/h is also on norepinephrine at 0.18 vasopressin is off, Nimbex remained the same. PEEP remains at 16. Peak airway pressure is 29. Plateau pressure is 24. Patient remains on empiric antibiotics. His renal functioning seems to be worse, and he was seen by nephrology, planning hemodialysis. Hence I discussed his condition with the today, and updated her on his status, made aware that he is critically ill, and mortality is probably in the range of 80%. Family seems to be agreeable to go and proceed with hemodialysis, but his CODE STATUS has been changed to DO NOT RESUSCITATE CODE STATUS. Labs from today were all noted, his LDH is 2344 C-reactive protein is 57. Chest x-ray is showing bilateral interstitial infiltrates, seems to be worse in the right upper lobe but slight improvement is noted in the right upper lobe infiltrates. Compared to yesterday Reevaluated today on 12/28/20, patient remains in the ICU, intubated, and mechanically ventilated. Patient is on assist control rate of 34 tidal volume 450 FiO2 on the percent PEEP of 16. Chest x-ray seems to be getting worse, ABG is also getting course, pO2 is 69 pCO2 55 pH of 7.21. Patient remains on Zosyn, vancomycin Solu-Medrol, he is on multiple drips including propofol, Nimbex, fentanyl, amiodarone, and on norepinephrine. He developed atrial fibrillation with RVR yesterday, and I had to place the patient on full anticoagulation therapy and on amiodarone. Hemodialysis was done yesterday, able to remove no more than 300 mL. Overall picture does not look great, today I discussed his status with the over the phone, and she seems to be very inclined to consider comfort care measures on this patient. And I believe that is quite appropriate. WBC count today is 14.7 hemoglobin is 11.4 electrolytes are normal except for potassium of 5.8. Renal profile showed a BUN of 79 creatinine 6.7. Objective - Vital Signs Vital signs: Vital Signs Temp 97.6 F 12/28/20 12:30 Pulse 73 12/28/20 13:00 Resp 36 H 12/28/20 13:00 BP 132/93 12/28/20 09:00 Pulse Ox 86 L 12/28/20 13:00 Intake & Output 12/27/20 12/28/20 12/28/20 18:59 06:59 18:59 Intake Total 6328.118 2819.241 300.800 Output Total 150 65 10 Balance 6922.506 8635.241 290.800 Weight 112 kg 112 kg Intake: IV 276 276 75 .9 240 240 60 Pressure Bag 36 36 15 Intake, IV Titration 664.835 347.241 60.800 Amount Cisatracurium 200 mg In 370.128 167.225 Sodium Chloride 0.9% 180 ml @ 1 MCG/KG/MIN 6.205 mls/hr IV .Q24H BUCK Rx#: [id number] Norepinephrine 32 mg In 91.731 79.894 57.421 Sodium Chloride 0.9% 218 ml @ 0.5 MCG/KG/MIN 23. 813 mls/hr IV .[id number] BUCK Rx#:[id number] Piperacillin-Tazobactam 3 100 .375 gm In Sodium Chloride 0.9% 100 ml @ 25 mls/hr IVPB Q12H BUCK Rx# :[id number] fentaNYL (PF). 1,000 mcg 100 93.078 In Sodium Chloride 0.9% 80 ml @ 0.5 MCG/KG/HR 5. 171 mls/hr IV .[id number] BUCK Rx#:[id number] propofoL 1,000 mg In 2.976 7.044 3.379 Empty Bag 1 bag @ Titrate IV .Q0M BUCK Rx#: [id number] Tube Feeding 324 324 135 Hemodialysis 300 Other 90 60 30 Output: Urine 150 65 10 Hemodialysis 0 Other: Voiding Method Indwelling Catheter Indwelling Catheter ABP, PAP, CO, CI - Last Documented Arterial Blood Pressure 112/55 - Exam GENERAL EXAM: Revealed a 60-year-old white male intubated, sedated, and paralyzed. HEAD: Normocephalic/atraumatic. EENT PERRLA, EOMI, anicteric, no neck masses, no JVD. NECK: Surgical changes noted in the neck, endotracheal tube noted in the tracheostomy, connected to mechanical ventilation. CHEST: No chest wall deformity. Symmetrical expansion. LUNGS: Crackles at the bases, no wheezes, scattered rhonchi noted. CVS: Regular rate and rhythm, normal S1 and S2, no gallops, no murmurs, no rubs ABDOMEN: Soft, nontender. No hepatosplenomegaly, normal bowel sounds, no guarding or rigidity. EXTREMITIES: No clubbing, no edema, no cyanosis, 2+ pulses and upper and lower extremities. MUSCULOSKELETAL: No deformities. SKIN: No rashes CENTRAL NERVOUS SYSTEM: Cannot assess, patient is sedated and paralyzed. PSYCHIATRIC: Could not assess - Labs CBC & Chem 7: 12/28/20 08:40 12/28/20 08:40 Labs: Abnormal Lab Results - Last 24 Hours (Table) 12/27/20 12/27/20 12/28/20 Range/Units 04:15 16:53 00:17 WBC (3.8-10.6) k/uL RBC (4.30-5.90) m/uL Hgb (13.0-17.5) gm/dL Hct (39.0-53.0) % Plt Count (150-450) k/uL Neutrophils # (1.3-7.7) k/uL Lymphocytes # (1.0-4.8) k/uL ABG pH (7.35-7.45) ABG pCO2 (35-45) mmHg ABG pO2 (83-108) mmHg ABG Total CO2 (19-24) mmol/L ABG O2 Saturation (94-97) % Sodium (137-145) mmol/L Potassium (3.5-5.1) mmol/L Carbon Dioxide (22-30) mmol/L BUN (9-20) mg/dL Creatinine (0.66-1.25) mg/dL Glucose (74-99) mg/dL POC Glucose (mg/dL) 119 H 181 H (75-99) mg/dL Hemoglobin A1c 6.2 H (4.0-6.0) % Calcium (8.4-10.2) mg/dL TSH (0.465-4.680) mIU/L Free T4 (0.78-2.19) ng/dL 10/29/21 10/29/21 10/29/21 Range/Units 05:24 05:28 08:40 WBC 14.7 H (3.8-10.6) k/uL RBC 3.76 L (4.30-5.90) m/uL Hgb 11.4 L (13.0-17.5) gm/dL Hct 34.9 L (39.0-53.0) % Plt Count 112 L (150-450) k/uL Neutrophils # 14.1 H (1.3-7.7) k/uL Lymphocytes # 0.1 L (1.0-4.8) k/uL ABG pH 7.19 L* (7.35-7.45) ABG pCO2 60 H (35-45) mmHg ABG pO2 65 L (83-108) mmHg ABG Total CO2 25 H (19-24) mmol/L ABG O2 Saturation 88.1 L (94-97) % Sodium (137-145) mmol/L Potassium (3.5-5.1) mmol/L Carbon Dioxide (22-30) mmol/L BUN (9-20) mg/dL Creatinine (0.66-1.25) mg/dL Glucose (74-99) mg/dL POC Glucose (mg/dL) 237 H (75-99) mg/dL Hemoglobin A1c (4.0-6.0) % Calcium (8.4-10.2) mg/dL TSH (0.465-4.680) mIU/L Free T4 (0.78-2.19) ng/dL 12/28/20 12/28/20 12/28/20 Range/Units 08:40 08:46 12:59 WBC (3.8-10.6) k/uL RBC (4.30-5.90) m/uL Hgb (13.0-17.5) gm/dL Hct (39.0-53.0) % Plt Count (150-450) k/uL Neutrophils # (1.3-7.7) k/uL Lymphocytes # (1.0-4.8) k/uL ABG pH 7.21 L (7.35-7.45) ABG pCO2 55 H (35-45) mmHg ABG pO2 69 L (83-108) mmHg ABG Total CO2 (19-24) mmol/L ABG O2 Saturation 90.1 L (94-97) % Sodium 136 L (137-145) mmol/L Potassium 5.8 H (3.5-5.1) mmol/L Carbon Dioxide 19 L (22-30) mmol/L BUN 79 H (9-20) mg/dL Creatinine 6.70 H (0.66-1.25) mg/dL Glucose 190 H (74-99) mg/dL POC Glucose (mg/dL) 205 H (75-99) mg/dL Hemoglobin A1c (4.0-6.0) % Calcium 6.7 L (8.4-10.2) mg/dL TSH 0.153 L (0.465-4.680) mIU/L Free T4 0.69 L (0.78-2.19) ng/dL Microbiology - Last 24 Hours (Table) 12/24/20 14:41 Blood Culture Gram Stain - Final Blood Blood Culture - Final Streptococcus pneumoniae 12/24/20 14:25 Blood Culture Gram Stain - Final Blood Blood Culture - Final Streptococcus pneumoniae 12/25/20 16:30 Gram Stain - Final Sputum Sputum Culture - Final Assessment and Plan Assessment: Impression: Acute hypoxic respiratory failure secondary to acute COVID-19 and secondary to Streptococcus pneumonia, and Streptococcus pneumoniae bacteremia. Septic shock secondary to above. Mostly secondary to Streptococcus pneumonia and Streptococcus bacteremia History of laryngeal cancer and previous laryngectomy followed by radiation treatment in 2014. And the tracheostomy. Acute lactic acidosis secondary to sepsis and septic shock. Acute kidney injury secondary to sepsis and septic shock. Acute troponin leak. History of COPD. History of hypothyroidism. History of hypertension. Recommendation: Continue ventilatory support. Continue hemodialysis. Continue nutritional support. Continue blood pressure support/pressors and fluids. Continue antibiotics / Zosyn and vancomycin Patient is not a candidate for redesivir and definitely not a candidate for baricitinib Continue COVID-19 cocktail. Continue GI and DVT prophylaxis. Continue bronchodilators. Today I updated the Bel on his condition, and she seems to be inclined to consider comfort care measures on this patient, and I believe that is appropriate. Prognosis is extremely poor, patient is critically ill. Will continue to follow. Critical care time is over 30 minutes Time with Patient: Greater than 30
--- NOTE | 2020-12-28 13:26 | CONS ---
CONSULTATION Mr. Harman is a 60-year-old male who presented to the emergency room with progressive dyspnea. Cardiology consultation was requested because of atrial fibrillation. Patient has a known history of laryngeal cancer with squamous cell carcinoma, laryngectomy and radiation, status post tracheostomy. He presented with progressive dyspnea, was diagnosed with COVID-19 infection requiring mechanical ventilation. Cardiology consultation was requested because of atrial fibrillation. The records were reviewed. According to the nursing staff and the records, there is no prior documented history of cardiac abnormalities. The patient continues to be in atrial fibrillation but had no evidence of significant pauses or evidence of ventricular ectopic activity. He has been initiated on anticoagulation. He was started on IV amiodarone to control his ventricular response and try to convert him back to sinus mechanism. His medication as an outpatient included omeprazole, losartan 50 mg daily, levothyroxine. REVIEW OF SYSTEMS: According to the records, includes the respiratory status. There is no evidence of recent GI bleeding or a history of stroke. It is limited at this point. PHYSICAL EXAMINATION: This is a 60-year-old male, intubated. Blood pressure running in the 90s to 130 with a heart rate in the 110s. No physical examination was done to limit the exposure. LAB DATA ON ADMISSION: His hemoglobin was 11.2. BUN and creatinine were 32 and 2.29. His troponin was 0.038, 0.061 and 0.10. His NT proBNP was 1910. He had a positive PCR for COVID-19. His a pH is 7.19 this morning, pCO2 of 60, PO2 of 65. His renal functions are worse: 76 and 6.27. His LDH is 2344. IMPRESSION: 1. Respiratory failure with COVID-19 pneumonia and possible superimposed pneumonia. 2. Atrial fibrillation of new onset. 3. History of laryngeal carcinoma, status post tracheostomy and radiation. 4. Worsening renal failure. 5. Troponin elevation related to the infectious process. 6. History of hypertension. RECOMMENDATIONS: From the cardiac standpoint, I will obtain echocardiogram with Doppler. I will add to his regimen low-dose beta shamar if his blood pressure tolerates. He is anticoagulated. Unfortunately the prognosis is quite poor. Thank you for this consult. Will follow with you. MMODL / IJN: [id number] /
[2020-12-28] MEDS ORDERED: INSULIN ASPART (NovoLOG) 100 UNIT/ML VIAL SQ SCH (13:30)
--- NOTE | 2020-12-28 14:37 | CONS ---
CONSULTATION This is a 60-year-old gentleman who has been admitted with COVID positive and the patient is on the vent through the tracheostomy tube. Patient had a laryngectomy done in the past. I was consulted for urgent placement of dialysis catheter. Patient's social history is that he with lives with his . He is an ex-smoker. SURGICAL HISTORY: Patient had a laryngectomy and tracheostomy in the past. The patient was seen on the unit. The patient has a trach, on vent. Chest has bilateral crackles. Abdomen is soft. Femorals are 1+. PLAN: Placement of dialysis catheter. Risks and complications were discussed. MMODL / IJN: [id number] /
[2020-12-28 17:55] LABS: Glucose,Whole Blood 188 mg/dL (75-99)
[2020-12-28] MEDS: INSULIN DETEMIR (LEVEMIR) 100 UNIT/ML SYR SQ SCH (20:11)
[2020-12-28 23:52] LABS: Glucose,Whole Blood 170 mg/dL (75-99)
[2020-12-29] MEDS: SODIUM CHLORIDE 0.9% 150 ML with VASOPRESSIN 60 UNIT IV SCH ×2 (00:30)
[2020-12-29 02:29] LABS: Basophils % (A) 0 %; Eosinophils % (A) 0 %; HCT 29.4 % (39.0-53.0); Lymphocytes # (A) 0.2 k/uL (1.0-4.8); Lymphocytes % (A) 1 %; MCH 31.2 pg (25.0-35.0); MCV 91.8 fL (80.0-100.0); Mean Platelet Volume 10.9; Monocytes # (A) 0.3 k/uL (0-1.0); Monocytes % (A) 2 %; Neutrophils # (A) 17.1 k/uL (1.3-7.7); Neutrophils % (A) 96 %; Platelet Count 152 k/uL (150-450); RDW 14.7 % (11.5-15.5); WBC 17.9 k/uL (3.8-10.6)
[2020-12-29] MEDS: fentaNYL (PF). 1,000 MCG in SODIUM CHLORIDE 0.9% 80 ML IV SCH ×2 (03:10→16:28)
[2020-12-29 05:35] LABS: ABG Base Excess -6.3 mmol/L; ABG HCO3 23 mmol/L (21-25); ABG Oxygen Saturation 89.5 % (94-97); ABG PO2 72 mmHg (83-108); ABG TCO2 25 mmol/L (19-24); Allen Test Performed? Yes
[2020-12-29 05:37] LABS: ABG PCO2 71 mmHg (35-45); ABG PH 7.12 (7.35-7.45)
[2020-12-29 05:41] LABS: Glucose,Whole Blood 131 mg/dL (75-99)
[2020-12-29] MEDS ORDERED: SODIUM BICARB 8.4% 50 ML SYR (1 MEQ/ML) IV STA (05:52)
[2020-12-29] MEDS: INSULIN ASPART (NovoLOG) 100 UNIT/ML VIAL SQ SCH ×8 (06:00→23:10)
[2020-12-29] MEDS: methylPREDNISolone SOD SUCCI 125 MG/2 ML VIAL IV SCH ×4 (06:01→23:10)
[2020-12-29] MEDS: LEVOTHYROXINE 88 MCG TAB PO SCH (06:03)
[2020-12-29] MEDS ORDERED: ARTIFICIAL TEARS-HYPROMELLOSE DROPS 15 ML BTL BOTH EYES PRN (06:21)
[2020-12-29] MEDS: DEXTROSE 5% IN WATER 1,000 ML with SODIUM BICARB (1 MEQ/ML) 150 ML IV SCH ×3 (06:54→23:53)
[2020-12-29 07:40] LABS: Calcium 7.3 mg/dL (8.4-10.2)
--- NOTE | 2020-12-29 07:42 | XR ---
EXAMINATION TYPE: XR chest 1V portable DATE OF EXAM: 12/29/2020 COMPARISON: Chest x-ray 12/28/2020 HISTORY: Intubated TECHNIQUE: Single frontal view of the chest is obtained. FINDINGS: Bilateral airspace disease shows a similar appearance. Tracheostomy tube, NG tube and over lying leads are present. No evident pneumothorax or pleural effusion. Cardiac mediastinal silhouette is stable. IMPRESSION: Correlate for pneumonia, ARDS, congestive heart failure
[2020-12-29 07:46] LABS: Potassium 6.1 mmol/L (3.5-5.1)
[2020-12-29] MEDS: HEPARIN SOD,PORK IN 0.45% NACL 25,000 UNIT in 0.45% NACL 1 250ML.BAG IV SCH (07:55)
[2020-12-29] MEDS: ZINC SULFATE 220 MG CAP PO SCH ×2 (07:57→09:02)
[2020-12-29] MEDS: CHOLECALCIFEROL 25 MCG (1000 IU) TABLET PO SCH ×2 (07:57→09:02)
[2020-12-29] MEDS: CHLORHEXIDINE GLUCONATE 15 ML CUP MUCOUS MEM SCH ×2 (07:57→19:59)
[2020-12-29] MEDS: ASCORBIC ACID 500 MG TAB PO SCH ×3 (07:58→19:59)
[2020-12-29] MEDS: PANTOPRAZOLE 40 MG/10 ML VIAL IVP SCH ×2 (07:58→19:59)
[2020-12-29] MEDS: ALBUTEROL HFA INHALER INHALATION PRN ×4 (08:10→19:44)
--- NOTE | 2020-12-29 08:44 | P.PN ---
Subjective Progress Note Date: 12/29/20 Principal diagnosis: This is a 58-year-old male seen in consultation with acute kidney injury, started on dialysis on December 27 and was dialyzed yesterday as well 2 days in a row He has Covid positive state as well as strep pneumonia bacteremia. He is on 100% FiO2. Had A. fib and was started on and Amiodarone with reversion back to normal sinus rhythm He is on small doses of levo fed. He has severe respiratory acidosis in spite of having a respiratory rate set at 36 with pCO2 71 pH is 7.12 He is on us bicarb drip this morning potassium remains high at 6.1 and had GI bleed. Hemoglobin is down from 16 4 days ago to 10 this morning Objective - Vital Signs Vital signs: Vital Signs Temp 98.3 F 12/29/20 04:00 Pulse 81 12/29/20 07:00 Resp 38 H 12/29/20 07:00 BP 99/52 12/29/20 07:00 Pulse Ox 87 L 12/29/20 07:00 Intake & Output 12/28/20 12/29/20 12/29/20 18:59 06:59 18:59 Intake Total 1016.908 585.711 49.791 Output Total 35 520 0 Balance 981.908 65.711 49.791 Weight 112 kg Intake: IV 166 3 .9 130 0 Pressure Bag 36 3 Intake, IV Titration 427.908 582.711 49.791 Amount Amiodarone 450 mg In 250 Dextrose 5% in Water 250 ml @ 0.5 MG/MIN 16.667 mls/hr IV .Q15H [facility] Rx#: [id number] Cisatracurium 200 mg In 200 Sodium Chloride 0.9% 180 ml @ 1 MCG/KG/MIN 6.205 mls/hr IV .Q24H [facility] Rx#: [id number] Heparin Sod,Pork in 0.45% 177.035 NaCl 25,000 unit In 0.45 % NaCl 1 250ml.bag @ 8.93 UNITS/KG/HR 10.002 mls/ hr IV .Q24H [facility] Rx#: [id number] Norepinephrine 32 mg In 121.645 51.905 48.373 Sodium Chloride 0.9% 218 ml @ 0.5 MCG/KG/MIN 23. 813 mls/hr IV .[id number] [facility] Rx#:[id number] fentaNYL (PF). 1,000 mcg 100 98.766 In Sodium Chloride 0.9% 80 ml @ 0.5 MCG/KG/HR 5. 171 mls/hr IV .[id number] [facility] Rx#:[id number] propofoL 1,000 mg In 6.263 5.005 1.418 Empty Bag 1 bag @ Titrate IV .Q0M [facility] Rx#: [id number] Tube Feeding 303 Other 120 Output: Gastric Drainage 500 Urine 35 20 0 Other: Voiding Method Indwelling Catheter Indwelling Catheter # Bowel Movements 1 ABP, PAP, CO, CI - Last Documented Arterial Blood Pressure 92/44 Examination he is on 100% FiO2 sedated Lungs are significant for occasional coarse crackles fair air entry bilaterally Heart sounds unremarkable normal sinus rhythm Abdomen soft Extremity exam was trace edema - Labs CBC & Chem 7: 12/29/20 02:00 12/29/20 02:00 Labs: Abnormal Lab Results - Last 24 Hours (Table) 12/28/20 12/28/20 12/28/20 Range/Units 08:40 08:40 08:46 WBC 14.7 H (3.8-10.6) k/uL RBC 3.76 L (4.30-5.90) m/uL Hgb 11.4 L (13.0-17.5) gm/dL Hct 34.9 L (39.0-53.0) % Plt Count 112 L (150-450) k/uL Neutrophils # 14.1 H (1.3-7.7) k/uL Lymphocytes # 0.1 L (1.0-4.8) k/uL ABG pH 7.21 L (7.35-7.45) ABG pCO2 55 H (35-45) mmHg ABG pO2 69 L (83-108) mmHg ABG Total CO2 (19-24) mmol/L ABG O2 Saturation 90.1 L (94-97) % Sodium 136 L (137-145) mmol/L Potassium 5.8 H (3.5-5.1) mmol/L Chloride (98-107) mmol/L Carbon Dioxide 19 L (22-30) mmol/L BUN 79 H (9-20) mg/dL Creatinine 6.70 H (0.66-1.25) mg/dL Glucose 190 H (74-99) mg/dL POC Glucose (mg/dL) (75-99) mg/dL Calcium 6.7 L (8.4-10.2) mg/dL TSH 0.153 L (0.465-4.680) mIU/L Free T4 0.69 L (0.78-2.19) ng/dL 12/28/20 12/28/20 12/28/20 Range/Units 12:59 17:53 23:50 WBC (3.8-10.6) k/uL RBC (4.30-5.90) m/uL Hgb (13.0-17.5) gm/dL Hct (39.0-53.0) % Plt Count (150-450) k/uL Neutrophils # (1.3-7.7) k/uL Lymphocytes # (1.0-4.8) k/uL ABG pH (7.35-7.45) ABG pCO2 (35-45) mmHg ABG pO2 (83-108) mmHg ABG Total CO2 (19-24) mmol/L ABG O2 Saturation (94-97) % Sodium (137-145) mmol/L Potassium (3.5-5.1) mmol/L Chloride (98-107) mmol/L Carbon Dioxide (22-30) mmol/L BUN (9-20) mg/dL Creatinine (0.66-1.25) mg/dL Glucose (74-99) mg/dL POC Glucose (mg/dL) 205 H 188 H 170 H (75-99) mg/dL Calcium (8.4-10.2) mg/dL TSH (0.465-4.680) mIU/L Free T4 (0.78-2.19) ng/dL 12/29/20 12/29/20 12/29/20 Range/Units 02:00 02:00 05:33 WBC 17.9 H (3.8-10.6) k/uL RBC 3.20 L (4.30-5.90) m/uL Hgb 10.0 L (13.0-17.5) gm/dL Hct 29.4 L (39.0-53.0) % Plt Count (150-450) k/uL Neutrophils # 17.1 H (1.3-7.7) k/uL Lymphocytes # 0.2 L (1.0-4.8) k/uL ABG pH 7.12 L* (7.35-7.45) ABG pCO2 71 H* (35-45) mmHg ABG pO2 72 L (83-108) mmHg ABG Total CO2 25 H (19-24) mmol/L ABG O2 Saturation 89.5 L (94-97) % Sodium (137-145) mmol/L Potassium 6.1 H* (3.5-5.1) mmol/L Chloride 109 H (98-107) mmol/L Carbon Dioxide 16 L (22-30) mmol/L BUN 72 H (9-20) mg/dL Creatinine 6.15 H (0.66-1.25) mg/dL Glucose 160 H (74-99) mg/dL POC Glucose (mg/dL) (75-99) mg/dL Calcium 7.3 L (8.4-10.2) mg/dL TSH (0.465-4.680) mIU/L Free T4 (0.78-2.19) ng/dL 12/29/20 Range/Units 05:39 WBC (3.8-10.6) k/uL RBC (4.30-5.90) m/uL Hgb (13.0-17.5) gm/dL Hct (39.0-53.0) % Plt Count (150-450) k/uL Neutrophils # (1.3-7.7) k/uL Lymphocytes # (1.0-4.8) k/uL ABG pH (7.35-7.45) ABG pCO2 (35-45) mmHg ABG pO2 (83-108) mmHg ABG Total CO2 (19-24) mmol/L ABG O2 Saturation (94-97) % Sodium (137-145) mmol/L Potassium (3.5-5.1) mmol/L Chloride (98-107) mmol/L Carbon Dioxide (22-30) mmol/L BUN (9-20) mg/dL Creatinine (0.66-1.25) mg/dL Glucose (74-99) mg/dL POC Glucose (mg/dL) 131 H (75-99) mg/dL Calcium (8.4-10.2) mg/dL TSH (0.465-4.680) mIU/L Free T4 (0.78-2.19) ng/dL Assessment and Plan Plan: Depression 1. Acute kidney injury, ATN secondary to cold with 19 pneumonia as well as Streptococcus pneumonia with bacteremia. Started hemodialysis 12/27/2020 and will be dialyzed today third day in a row because of hyperkalemia. 2. Severe respiratory acidosis as well as metabolic acidosis. PH is 7.1 pCO2 71 and bicarb is 16 gap is 15 3.Covid + strep Pneumonia with bacteremia 4. VDRF, 100% FIO2 5. GI bleed Recommendation 1. Will dialyze him today again because of staph shortages will give a short treatment of 2 Hours with a 2K.
--- NOTE | 2020-12-29 08:47 | US ---
EXAMINATION TYPE: US venous doppler duplex LE DATE OF EXAM: 12/29/2020 7:52 AM COMPARISON: NONE CLINICAL HISTORY: elevated d-dimer. elevated D-Dimer. technical limitations, intubated ICU patient SIDE PERFORMED: bilateral TECHNIQUE: The lower extremity deep venous system is examined utilizing real time linear array sonog tami with graded compression, doppler sonography and color-flow sonography. VESSELS IMAGED: Common Femoral Vein Deep Femoral Vein Greater Saphenous Vein * Femoral Vein Popliteal Vein Small Saphenous Vein * Proximal Calf Veins (* superficial vessels) Right Leg: technical limitations due to bandages and tubing in the groin, unable to visualize right CFV. no evidence of acute DVT as visualized Left Leg: technical limitations due to bandage, unable to visualize CFV/ deep femoral vein conjuncti on. line visualized within CFV, compressions not done at this level with good color flow visualized. no evidence of acute DVT as visualized Subcutaneous edema channels are noted incidentally within the soft tissues of the lower extremities IMPRESSION: No evident deep venous thrombosis within the limitations of the exam.
[2020-12-29] MEDS: ARTIFICIAL TEARS-HYPROMELLOSE DROPS 15 ML BTL BOTH EYES SCH ×4 (09:16→21:25)
[2020-12-29] MEDS: NOREPINEPHRINE 32 MG in SODIUM CHLORIDE 0.9% 218 ML IV SCH ×2 (09:17→19:45)
[2020-12-29 10:46] LABS: Basophils # (A) 0.1 k/uL (0-0.2); Basophils % (A) 0 %; Eosinophils % (A) 0 %; Lymphocytes # (A) 0.2 k/uL (1.0-4.8); Lymphocytes % (A) 1 %; MCH 31.1 pg (25.0-35.0); MCHC 33.4 g/dL (31.0-37.0); MCV 93.1 fL (80.0-100.0); Mean Platelet Volume 10.2; Monocytes # (A) 0.4 k/uL (0-1.0); Monocytes % (A) 2 %; Neutrophils # (A) 15.5 k/uL (1.3-7.7); Neutrophils % (A) 95 %; Platelet Count 149 k/uL (150-450); RDW 14.4 % (11.5-15.5); WBC 16.3 k/uL (3.8-10.6)
--- NOTE | 2020-12-29 11:37 | P.PN ---
Subjective Progress Note Date: 12/29/20 History of present illness 60 years old male with past medical history of laryngeal cancer status post laryngectomy and radiation in 2015 status post tracheostomy, history of hypothyroidism, COPD, hypertension comes in with acute shortness of breath associated with cough with phlegm production, reddish to brownish in color, associated with fever or chills and fatigue. Patient states his grandchildren were sick and he caught the infection from them. He also endorses right-sided chest pain on deep breath. Patient was noted to be afebrile pulse of 110 respiratory rate 18 blood pressure 76/48 oxygen saturation 85% on room air. Oxygen improved to 92% on trach ordered. EKG was obtained patient was sinus tachycardia no ST segment deviation noted with QTc interval of 418. Chest x-ray 12/24 suggestive of mild strandy density left lower lobe with was consolidation involving the right upper lung concerning for overlying bacterial pneumonia. Labs reviewed suggested of a visible 4.4 hemoglobin 18.2 platelets 137 INR 1.1 bicarb 19 BUN 32 creatinine 2.29, lactic acid of 5.5 AST 116 ALT 60 troponin 0.238. COVID is positive. We will give the patient will complete total 3 L IV bolus of normal saline. One dose of Rocephin and azithromycin. Neck ER. Pulmonary is consulted. Patient initiated on Solu-Medrol 60 every 6. DuoNeb will be continued as needed for shortness of breath. Patient will be initiated on remdesivir. Cardiology was consulted with increase in troponin. 12/25 Patient is seen today on 12/25. Patient got intubated yesterday 12/19 5 in the evening as unable to maintain oxygenation on trach collar. Patient was placed on mechanical ventilator with the settings of assist control rate of 34 tidal volume 450 FiO2 90% and PEEP of 12. ABG was obtained with a pH of 7.15 pCO2 48 pO2 112. Patient started on norepinephrine drip, vasopressin drip, propofol, fentanyl, Pneumovax and and bicarb drip. NG tube will be placed today to help with intestinal feeding. Blood cultures are positive for gram-positive cocci. Antibiotics patient from ceftriaxone and azithromycin to Zosyn and vancomycin. Labs were reviewed, patient has a WBC 11.3 hemoglobin 16 platelet 177 chloride 114 bicarb 17 BUN 40 creatinine 2.65, glucose 185 lactic acid of 4 calcium 6.3. 12/26 Patient remains intubated on droplet precautions for COVID. Continues to remain intubated on 70% FiO2 PEEP of 16 respiratory rate 34 arm tidal volume of 450. Because of the patient's afebrile pulse 75 respiratory rate 30 4R blood pressure 107/62 oxygen saturation 91% on if I O2 of 70%. Labs are reviewed patient is an insulin-dependent hemoglobin 14.1 platelet 137 d-dimer is elevated at 1.4. 7.3 and 46 pO2 of 78. Insulin 37 potassium 5 bicarb 21 and 59 creatinine 4.17 glucose 264 calcium 6 ionized calcium 3.6, LDH 2155 CRP 3056.2 albumin 2. Urine output was 180 ml in the last 24 hour. She'll see one dose of IV Lasix 80 mg today. If no improvement in urine output. Patient will be pl aced on renal replacement therapy. One dose 2 g of calcium gluconate given. Patient continues to remain on vasopressin and was febrile fed for pressure. Solu-Medrol a 60 IV every 6. Lantus initiated 15 units. Lovenox increased to 100 mg subcu twice a day. 12/27: Patient remains in intensive care unit. Patient remains intubated and on mechanical ventilation with tidal volume 450, FiO2 55, PEEP of 16. Nephrology has seen the patient and plan for hemodialysis and dialysis catheter being elisabeth lolis at the time of this evaluation. Noted that he has been made a DO NOT RESUSCITATE status. Repeat blood work reveals LVH 2344, C-reactive protein 57. Repeat chest x-ray showing bilateral interstitial infiltrates. Blood cultures are positive for Streptococcus pneumoniae. 12/28: Patient remains in the intensive care unit, intubated and on mechanical ventilation with tidal volume 450, FiO2 is increased to 100 during the night, PEEP 16. Heart rate is running in the 1 teens, respiratory rate 36, pulse ox 87%. Patient has been afebrile. Repeat blood work reveals WBC 14.7, hemoglobin 11.4, platelet count 112. Sodium 136, potassium 5.8, chloride 103, CO2 19, BUN 79 creatinine 6.7. TSH 0.153, free T4 0.69 urea blood sugars are running 181- 237. He is status post right femoral dialysis catheter placement by Dr. Ann and was started on hemodialysis yesterday. Patient has been oliguric. Patient also went into A. fib with RVR and started on amiodarone and heparin. Patient is on levo fed, propofol, Nimbex,, fentanyl. He is off vasopressin. Patient was made no code yesterday. 12/29: Patient remains in ICU, on mechanical ventilation. Patient is on assist control rate of 34 tidal volume 450 FiO2 100% and PEEP of 16. Chest x-ray shows worsening progression. Patient remains on Zosyn and vancomycin along with Solu- Medrol. The grease maker head did have a discussion with the yesterday and nursing reports they're considering comfort care measures. Nephrology plans on dialysis again today, potassium was 6.1, BUN 72, creatinine 6.15. Patient did have dark red blood output from NG tube and heparin drip was discontinued. Hemoglobin was down to 10.0 this morning from 11.4 yesterday. Review of system Could not be obtained patient is intubated Physical exam Deferred to grease maker head. Assessment and plan #1 septic shock secondary to COVID pneumonia with streptococcal pneumonia and streptococcal bacteremia. Patient is continued on Zosyn, vancomycin, continue vasopressor support, grease maker head consult appreciated. Continue vitamin supplements, Solu-Medrol 60 mg IV every 6 hours. #2 acute hypoxic respiratory failure mechanically ventilated through tracheostomy since 12/24 secondary to COVID and superimposed bacterial pneumonia not a candidate for remdesivir. #3 acute COPD exacerbation Pulmicort twice daily inhaler, DuoNeb as needed for shortness of breath, incentive spirometry, sputum culture. Continue Solu-Medrol 60 IV every 6 hours #4 troponin elevation rule out ACS. EKG dated the first ST elevation depression. Likely type II myocardial infarction. Cardiology consulted. #5 hyperglycemia A1c ordered on steroids. Levemir 10 units at bedtime, insulin scale every 6 hours. #6 hypertension. Hold losartan 50 mg by mouth daily #7 hypocalcemia s/p calcium gluconate. #8 GERD and GI prophylaxis. Continue Protonix 40 mg IV daily. #9 history of laryngeal cancer status post laryngectomy and radiation . Has tracheostomy currently on mechanical ventilation #10 acute kidney injury on CK D3. Status post femoral dialysis cath and started dialysis 12/27. Nephrology consult appreciated. Repeat dialysis scheduled for today. #11 acute transaminitis likely secondary to COVID infection. Continue to monitor. #12 metabolic acidosis secondary to sepsis. #13 new-onset paroxysmal atrial fibrillation. Patient is on amiodarone drip and heparin was discontinued #14 hypothyroidism continue levothyroxine at 88 g by mouth daily #15 DVT prophylaxis. Heparin drip discontinued due to GI bleed. #16 GI bleed. Off anticoagulation at this time continue to monitor CBCs. CODE STATUS: No code. Prognosis guarded Impression and plan of care have been directed as dictated by the signing physician. Jessenia Cortez nurse practitioner acting as scribe for signing physician. Objective - Vital Signs Vital signs: Vital Signs Temp 98.3 F 12/29/20 04:00 Pulse 81 12/29/20 07:00 Resp 38 H 12/29/20 07:00 BP 99/52 12/29/20 07:00 Pulse Ox 87 L 12/29/20 07:00 Intake & Output 12/28/20 12/29/20 12/29/20 18:59 06:59 18:59 Intake Total 1016.908 585.711 1.418 Output Total 35 520 0 Balance 981.908 65.711 1.418 Weight 112 kg Intake: IV 166 3 .9 130 0 Pressure Bag 36 3 Intake, IV Titration 427.908 582.711 1.418 Amount Amiodarone 450 mg In 250 Dextrose 5% in Water 250 ml @ 0.5 MG/MIN 16.667 mls/hr IV .Q15H [facility] Rx#: [id number] Cisatracurium 200 mg In 200 Sodium Chloride 0.9% 180 ml @ 1 MCG/KG/MIN 6.205 mls/hr IV .Q24H [facility] Rx#: [id number] Heparin Sod,Pork in 0.45% 177.035 NaCl 25,000 unit In 0.45 % NaCl 1 250ml.bag @ 8.93 UNITS/KG/HR 10.002 mls/ hr IV .Q24H [facility] Rx#: [id number] Norepinephrine 32 mg In 121.645 51.905 Sodium Chloride 0.9% 218 ml @ 0.5 MCG/KG/MIN 23. 813 mls/hr IV .[id number] [facility] Rx#:[id number] fentaNYL (PF). 1,000 mcg 100 98.766 In Sodium Chloride 0.9% 80 ml @ 0.5 MCG/KG/HR 5. 171 mls/hr IV .[id number] [facility] Rx#:[id number] propofoL 1,000 mg In 6.263 5.005 1.418 Empty Bag 1 bag @ Titrate IV .Q0M [facility] Rx#: [id number] Tube Feeding 303 Other 120 Output: Gastric Drainage 500 Urine 35 20 0 Other: Voiding Method Indwelling Catheter Indwelling Catheter # Bowel Movements 1 ABP, PAP, CO, CI - Last Documented Arterial Blood Pressure 92/44 - Labs CBC & Chem 7: 12/29/20 10:28 12/29/20 02:00 Labs: Abnormal Lab Results - Last 24 Hours (Table) 12/28/20 12/28/20 12/28/20 Range/Units 08:40 08:40 08:46 WBC 14.7 H (3.8-10.6) k/uL RBC 3.76 L (4.30-5.90) m/uL Hgb 11.4 L (13.0-17.5) gm/dL Hct 34.9 L (39.0-53.0) % Plt Count 112 L (150-450) k/uL Neutrophils # 14.1 H (1.3-7.7) k/uL Lymphocytes # 0.1 L (1.0-4.8) k/uL ABG pH 7.21 L (7.35-7.45) ABG pCO2 55 H (35-45) mmHg ABG pO2 69 L (83-108) mmHg ABG Total CO2 (19-24) mmol/L ABG O2 Saturation 90.1 L (94-97) % Sodium 136 L (137-145) mmol/L Potassium 5.8 H (3.5-5.1) mmol/L Chloride (98-107) mmol/L Carbon Dioxide 19 L (22-30) mmol/L BUN 79 H (9-20) mg/dL Creatinine 6.70 H (0.66-1.25) mg/dL Glucose 190 H (74-99) mg/dL POC Glucose (mg/dL) (75-99) mg/dL Calcium 6.7 L (8.4-10.2) mg/dL TSH 0.153 L (0.465-4.680) mIU/L Free T4 0.69 L (0.78-2.19) ng/dL 12/28/20 12/28/20 12/28/20 Range/Units 12:59 17:53 23:50 WBC (3.8-10.6) k/uL RBC (4.30-5.90) m/uL Hgb (13.0-17.5) gm/dL Hct (39.0-53.0) % Plt Count (150-450) k/uL Neutrophils # (1.3-7.7) k/uL Lymphocytes # (1.0-4.8) k/uL ABG pH (7.35-7.45) ABG pCO2 (35-45) mmHg ABG pO2 (83-108) mmHg ABG Total CO2 (19-24) mmol/L ABG O2 Saturation (94-97) % Sodium (137-145) mmol/L Potassium (3.5-5.1) mmol/L Chloride (98-107) mmol/L Carbon Dioxide (22-30) mmol/L BUN (9-20) mg/dL Creatinine (0.66-1.25) mg/dL Glucose (74-99) mg/dL POC Glucose (mg/dL) 205 H 188 H 170 H (75-99) mg/dL Calcium (8.4-10.2) mg/dL TSH (0.465-4.680) mIU/L Free T4 (0.78-2.19) ng/dL 12/29/20 12/29/20 12/29/20 Range/Units 02:00 02:00 05:33 WBC 17.9 H (3.8-10.6) k/uL RBC 3.20 L (4.30-5.90) m/uL Hgb 10.0 L (13.0-17.5) gm/dL Hct 29.4 L (39.0-53.0) % Plt Count (150-450) k/uL Neutrophils # 17.1 H (1.3-7.7) k/uL Lymphocytes # 0.2 L (1.0-4.8) k/uL ABG pH 7.12 L* (7.35-7.45) ABG pCO2 71 H* (35-45) mmHg ABG pO2 72 L (83-108) mmHg ABG Total CO2 25 H (19-24) mmol/L ABG O2 Saturation 89.5 L (94-97) % Sodium (137-145) mmol/L Potassium 6.1 H* (3.5-5.1) mmol/L Chloride 109 H (98-107) mmol/L Carbon Dioxide 16 L (22-30) mmol/L BUN 72 H (9-20) mg/dL Creatinine 6.15 H (0.66-1.25) mg/dL Glucose 160 H (74-99) mg/dL POC Glucose (mg/dL) (75-99) mg/dL Calcium 7.3 L (8.4-10.2) mg/dL TSH (0.465-4.680) mIU/L Free T4 (0.78-2.19) ng/dL 12/29/20 Range/Units 05:39 WBC (3.8-10.6) k/uL RBC (4.30-5.90) m/uL Hgb (13.0-17.5) gm/dL Hct (39.0-53.0) % Plt Count (150-450) k/uL Neutrophils # (1.3-7.7) k/uL Lymphocytes # (1.0-4.8) k/uL ABG pH (7.35-7.45) ABG pCO2 (35-45) mmHg ABG pO2 (83-108) mmHg ABG Total CO2 (19-24) mmol/L ABG O2 Saturation (94-97) % Sodium (137-145) mmol/L Potassium (3.5-5.1) mmol/L Chloride (98-107) mmol/L Carbon Dioxide (22-30) mmol/L BUN (9-20) mg/dL Creatinine (0.66-1.25) mg/dL Glucose (74-99) mg/dL POC Glucose (mg/dL) 131 H (75-99) mg/dL Calcium (8.4-10.2) mg/dL TSH (0.465-4.680) mIU/L Free T4 (0.78-2.19) ng/dL
--- NOTE | 2020-12-29 12:03 | PN ---
PROGRESS NOTE Mr. Harman is a 60-year-old male with a prior history of laryngeal carcinoma who presented with progressive dyspnea and evidence of respiratory failure and COVID-19 infection. Cardiology consultation was requested because of atrial fibrillation. Patient converted back to sinus mechanism yesterday. His anticoagulation is on hold because of GI bleeding. He has continued to be intubated; weaning was not successful. He had an echocardiogram performed yesterday that revealed an ejection fraction of 40% to 45%. He continues to be on the amiodarone in addition to insulin, metoprolol 25 mg twice a day, Zosyn and vancomycin. Blood pressure 90s to 130s with a heart rate in the 90s. No physical examination was performed to limit the exposure. Lab data revealed pH of 7.12, PCO2 of , pO2 of 72, potassium 6.1, BUN and creatinine of 72 and 6.15. IMPRESSION: 1. Respiratory failure related to COVID-19 infection in a patient with history of laryngeal carcinoma and prior tracheostomy. 2. Paroxysmal atrial fibrillation. 3. Cardiomyopathy, mild to moderate. 4. Renal failure. RECOMMENDATIONS: From the cardiac standpoint, I will switch him to oral amiodarone, continue with his medical regimen, follow his renal function and his blood pressure. I will continue to hold anticoagulation because of GI bleeding. Unfortunately the prognosis is poor. MMODL / IJN: [id number] /
[2020-12-29] MEDS: METOPROLOL TARTRATE 25 MG TAB PO SCH ×2 (13:40→19:59)
[2020-12-29 13:46] LABS: Glucose,Whole Blood 143 mg/dL (75-99)
[2020-12-29] MEDS: PIPERACILLIN-TAZOBACTAM 3.375 GM in SODIUM CHLORIDE 0.9% 100 ML IVPB SCH ×2 (13:50→23:10)
--- NOTE | 2020-12-29 15:43 | P.PN ---
Subjective Progress Note Date: 12/29/20 Principal diagnosis: Acute hypoxic respiratory failure secondary to 19 pneumonia, possible aspiration pneumonia, and septic shock with bacteremia This is a 60-year-old white male patient past medical history of laryngeal cancer (squamous cell carcinoma) with history of laryngectomy and radiation in 2015, status post tracheostomy, history of hypothyroidism, COPD, hypertension. Patient came into the emergency department on 12/24/2020 for evaluation of acute shortness of breath, associated with cough and phlegm production. He is producing reddish to brownish colored phlegm, he had fever, chills and fatigue. Patient states one of his grandchildren was sick, and he believes he may have caught the infection from them. He endorses right-sided chest pain with a deep inspiration. In the emergency department since he was hypotensive with blood pressure of 76/48, and his pulse ox was 70% on room air. He currently has a non-cuffed cannula this inserted into his tracheotomy opening in his neck, he was placed on 92% trach collar, however his pulse ox is still 83%. Patient is audibly congested and short of breath. He is using accessory muscles of breathing. He is using of voice box to respond verbally, he is tachycardic on the monitor, but in sinus mechanism. His chest x-ray showed mild strandy density at the left lower lobe with consolidation involving the right upper lung concerning for bacterial pneumonia possibly aspiration related pneumonia. His labs showed white blood cell count of 4.4, hemoglobin of 18.2, platelets of 137, INR 1.1, BUN of 32, creatinine of 2.29, lactic acid was 5.5, AST was 116, ALT was 60, troponin was 0.238. COVID-19 PCR was positive. Patient was started on fluid resuscitation and will be given a total of 3 L and IV fluid boluses. He was initially started on Rocephin and azithromycin in the emergency department. He was started on IV Solu-Medrol 60 g every 6 hours and nebulized bronchodilators. Is currently still requiring high flow oxygen per trach collar, still remains very hypoxic, and short of breath. He will be transferred to the ICU, and the tracheostomy will be placed and patient will be placed on the mechanical ventilator. Patient was reevaluated today on 12/25/20, patient remains intubated and mechanically ventilated. His ventilator settings are assist control rate of 34 volume 450 FiO2 90% and we cut it down to 70%, PEEP is at 12. ABG showed a pO2 of 112 pCO2 48 pH of 7.15. Patient remains on bicarb drip, norepinephrine at 0.5 mcg/kg/m, Nimbex, and vasopressin. To maintain adequate blood pressure. Patient received earlier this morning sodium bicarb and received fluid boluses total of 5 L since admission. Blood cultures came back positive for gram- positive cocci. Identification is pending. In the meantime the patient is on antibiotics in the form of Zosyn and vancomycin. Labs today were reviewed, electrolytes are normal renal profile is about the same compared to yesterday with a BUN of 40 creatinine 2.65, lactic acid is 4.0 this morning. And blood sugar is 197. Chest x-ray shows right upper lobe reticular nodular opacity and left lower lobe as well as right lower lobe bibasilar opacities. Reevaluated today on 12/26/20, patient remains in the ICU, intubated and mechanically ventilated. He is on assist control rate of 34 Tylenol volume 450 FiO2 of 70% PEEP is 12 and I increased the PEEP up to 16 today. ABG showed a pO2 of 78 pCO2 of 46 pH of 7.32. Patient remains on propofol at 45, Nimbex at 3, IV fluid at KVO. He remains on bicarb drip, norepinephrine at 0.18 mcg/kg/m, fentanyl 1 mcg/kg per hour. And is also on a bicarb drip. After noticing the ABG and his electrolytes, his bicarb was discontinued. Since his bicarb is 21 today on the electrolytes. WBC count is 10.7 hemoglobin is 14.1. Platelets are 137. D-dimer is 1.41 blood cultures on admission were positive for gram- positive cocci. Sputum cultures so far nondiagnostic. Many gram-positive cocci noted, and many polymorphonuclears noted in the sputum sample chest x-ray showed diffuse increased lung markings right more so than left, and also increased markings in the left lower lobe. As well as right upper lobe. Renal ultrasound is basically unremarkable. No hydronephrosis noted. Antibiotics kelley, patient remains on Zosyn. And vancomycin. Reevaluated today on 12/27/20, patient remains in the ICU, intubated and mechanically ventilated. Remains on assist control rate of 34 tidal volume 450 FiO2 70%, and I cut it down to 60%, PEEP of 16 ABG showed a pO2 of 89 pCO2 56 pH of 7.24, however I noted there was a bit of a leak around the cuff of the endotracheal tube, and after adjustment of the endotracheal tube and put more air in the cuff, noted better tidal volumes and I would assume that has fixed his hypercapnia. Patient remains on propofol at 65, fentanyl 1 mcg/kg/h is also on norepinephrine at 0.18 vasopressin is off, Nimbex remained the same. PEEP remains at 16. Peak airway pressure is 29. Plateau pressure is 24. Patient remains on empiric antibiotics. His renal functioning seems to be worse, and he was seen by nephrology, planning hemodialysis. Hence I discussed his condition with the today, and updated her on his status, made aware that he is critically ill, and mortality is probably in the range of 80%. Family seems to be agreeable to go and proceed with hemodialysis, but his CODE STATUS has been changed to DO NOT RESUSCITATE CODE STATUS. Labs from today were all noted, his LDH is 2344 C-reactive protein is 57. Chest x-ray is showing bilateral interstitial infiltrates, seems to be worse in the right upper lobe but slight improvement is noted in the right upper lobe infiltrates. Compared to yesterday Reevaluated today on 12/28/20, patient remains in the ICU, intubated, and mechanically ventilated. Patient is on assist control rate of 34 tidal volume 450 FiO2 on the percent PEEP of 16. Chest x-ray seems to be getting worse, ABG is also getting course, pO2 is 69 pCO2 55 pH of 7.21. Patient remains on Zosyn, vancomycin Solu-Medrol, he is on multiple drips including propofol, Nimbex, fentanyl, amiodarone, and on norepinephrine. He developed atrial fibrillation with RVR yesterday, and I had to place the patient on full anticoagulation therapy and on amiodarone. Hemodialysis was done yesterday, able to remove no more than 300 mL. Overall picture does not look great, today I discussed his status with the over the phone, and she seems to be very inclined to consider comfort care measures on this patient. And I believe that is quite appropriate. WBC count today is 14.7 hemoglobin is 11.4 electrolytes are normal except for potassium of 5.8. Renal profile showed a BUN of 79 creatinine 6.7. Reevaluated today on 12/29/20, patient remains in the ICU, intubated and mechanically ventilated. He is now on assist control rate of 38 tidal volume 450 FiO2 of 100% and PEEP of 18. His ABG remains poor, relatively hypoxic and hypercapnic. Patient remains sedated and paralyzed, he is requiring also norepinephrine. His ABG today showed a pO2 of 72 pCO2 71 pH of 7.12. Potassium is 6.1 BUN is 72 creatinine 6.15 bicarb is 16. Obviously his hyperkalemia is secondary to acute metabolic acidosis as well as acute respiratory acidosis with hypercapnia. WBC count is 16.3 hemoglobin is 9. Cultures on admission were pos itive for Streptococcus pneumonia. Obviously the patient has COVID-19 pneumonia and superimposed streptococcal pneumonia with bacteremia. Patient remains on norepinephrine at 0.31 mcg/kg/m Nimbex at 2 mcg/kg/m propofol 55 mcg/kg/m and fentanyl 1 mcg/kg per hour. Asked x-ray continues to show bilateral diffuse interstitial infiltrates. Yesterday the patient developed intermittent episodes of upper GI bleeding, hence heparin was placed on hold although the patient had atrial fibrillation with RVR, and he had suspicion for chronic left lower extremity deep vein thrombosis. His was updated on his condition yesterday, and she is still in the process of considering comfort care measures. CODE STATUS remains DO NOT RESUSCITATE. Objective - Vital Signs Vital signs: Vital Signs Temp 98.3 F 12/29/20 08:00 Pulse 90 12/29/20 14:00 Resp 38 H 12/29/20 14:00 BP 107/54 12/29/20 11:00 Pulse Ox 93 L 12/29/20 14:00 Intake & Output 12/28/20 12/29/20 12/29/20 18:59 06:59 18:59 Intake Total 1016.908 585.711 742.904 Output Total 35 520 800 Balance 981.908 65.711 -57.096 Weight 112 kg Intake: IV 166 3 91 .9 130 0 70 Pressure Bag 36 3 21 Intake, IV Titration 427.908 582.711 651.904 Amount Amiodarone 450 mg In 250 Dextrose 5% in Water 250 ml @ 0.5 MG/MIN 16.667 mls/hr IV .Q15H [facility] Rx#: [id number] Cisatracurium 200 mg In 200 Sodium Chloride 0.9% 180 ml @ 1 MCG/KG/MIN 6.205 mls/hr IV .Q24H [facility] Rx#: [id number] Dextrose 5% in Water 1, 525 000 ml @ 75 mls/hr IV . [id number] [facility] with Sodium Bicarb (1 Meq/ml) 150 ml Rx#:[id number] Heparin Sod,Pork in 0.45% 177.035 NaCl 25,000 unit In 0.45 % NaCl 1 250ml.bag @ 8.93 UNITS/KG/HR 10.002 mls/ hr IV .Q24H [facility] Rx#: [id number] Norepinephrine 32 mg In 121.645 51.905 122.433 Sodium Chloride 0.9% 218 ml @ 0.5 MCG/KG/MIN 23. 813 mls/hr IV .[id number] [facility] Rx#:[id number] fentaNYL (PF). 1,000 mcg 100 98.766 In Sodium Chloride 0.9% 80 ml @ 0.5 MCG/KG/HR 5. 171 mls/hr IV .[id number] [facility] Rx#:[id number] propofoL 1,000 mg In 6.263 5.005 4.471 Empty Bag 1 bag @ Titrate IV .Q0M [facility] Rx#: [id number] Tube Feeding 303 0 Other 120 Output: Gastric Drainage 500 Urine 35 20 0 Oral Regurgitation 800 Other: Voiding Method Indwelling Catheter Indwelling Catheter # Bowel Movements 1 ABP, PAP, CO, CI - Last Documented Arterial Blood Pressure 153/61 - Exam GENERAL EXAM: Revealed a 60-year-old white male intubated, sedated, and paralyzed. HEAD: Normocephalic/atraumatic. EENT PERRLA, EOMI, anicteric, no neck masses, no JVD. NECK: Surgical changes noted in the neck, endotracheal tube noted in the tr acheostomy, connected to mechanical ventilation. CHEST: No chest wall deformity. Symmetrical expansion. LUNGS: Records and rhonchi noted bilaterally. CVS: Regular rate and rhythm, normal S1 and S2, no gallops, no murmurs, no rubs ABDOMEN: Soft, nontender. No hepatosplenomegaly, normal bowel sounds, no guarding or rigidity. EXTREMITIES: No clubbing, no edema, no cyanosis, 2+ pulses and upper and lower extremities. MUSCULOSKELETAL: No deformities. SKIN: No rashes CENTRAL NERVOUS SYSTEM: Cannot assess, patient is sedated and paralyzed. PSYCHIATRIC: Could not assess - Labs CBC & Chem 7: 12/29/20 10:28 12/29/20 02:00 Labs: Abnormal Lab Results - Last 24 Hours (Table) 12/28/20 12/28/20 12/29/20 Range/Units 17:53 23:50 02:00 WBC 17.9 H (3.8-10.6) k/uL RBC 3.20 L (4.30-5.90) m/uL Hgb 10.0 L (13.0-17.5) gm/dL Hct 29.4 L (39.0-53.0) % Plt Count (150-450) k/uL Neutrophils # 17.1 H (1.3-7.7) k/uL Lymphocytes # 0.2 L (1.0-4.8) k/uL ABG pH (7.35-7.45) ABG pCO2 (35-45) mmHg ABG pO2 (83-108) mmHg ABG Total CO2 (19-24) mmol/L ABG O2 Saturation (94-97) % Potassium (3.5-5.1) mmol/L Chloride (98-107) mmol/L Carbon Dioxide (22-30) mmol/L BUN (9-20) mg/dL Creatinine (0.66-1.25) mg/dL Glucose (74-99) mg/dL POC Glucose (mg/dL) 188 H 170 H (75-99) mg/dL Calcium (8.4-10.2) mg/dL 12/29/20 12/29/20 12/29/20 Range/Units 02:00 05:33 05:39 WBC (3.8-10.6) k/uL RBC (4.30-5.90) m/uL Hgb (13.0-17.5) gm/dL Hct (39.0-53.0) % Plt Count (150-450) k/uL Neutrophils # (1.3-7.7) k/uL Lymphocytes # (1.0-4.8) k/uL ABG pH 7.12 L* (7.35-7.45) ABG pCO2 71 H* (35-45) mmHg ABG pO2 72 L (83-108) mmHg ABG Total CO2 25 H (19-24) mmol/L ABG O2 Saturation 89.5 L (94-97) % Potassium 6.1 H* (3.5-5.1) mmol/L Chloride 109 H (98-107) mmol/L Carbon Dioxide 16 L (22-30) mmol/L BUN 72 H (9-20) mg/dL Creatinine 6.15 H (0.66-1.25) mg/dL Glucose 160 H (74-99) mg/dL POC Glucose (mg/dL) 131 H (75-99) mg/dL Calcium 7.3 L (8.4-10.2) mg/dL 12/29/20 12/29/20 Range/Units 10:28 13:43 WBC 16.3 H (3.8-10.6) k/uL RBC 2.90 L (4.30-5.90) m/uL Hgb 9.0 L (13.0-17.5) gm/dL Hct 27.0 L (39.0-53.0) % Plt Count 149 L (150-450) k/uL Neutrophils # 15.5 H (1.3-7.7) k/uL Lymphocytes # 0.2 L (1.0-4.8) k/uL ABG pH (7.35-7.45) ABG pCO2 (35-45) mmHg ABG pO2 (83-108) mmHg ABG Total CO2 (19-24) mmol/L ABG O2 Saturation (94-97) % Potassium (3.5-5.1) mmol/L Chloride (98-107) mmol/L Carbon Dioxide (22-30) mmol/L BUN (9-20) mg/dL Creatinine (0.66-1.25) mg/dL Glucose (74-99) mg/dL POC Glucose (mg/dL) 143 H (75-99) mg/dL Calcium (8.4-10.2) mg/dL Assessment and Plan Assessment: Impression: Acute hypoxic respiratory failure secondary to acute COVID-19 and superimposed streptococcal pneumonia with streptococcal pneumonia bacteremia. Septic shock secondary to above. Mostly secondary to Streptococcus pneumonia and Streptococcus bacteremia History of laryngeal cancer and previous laryngectomy followed by radiation treatment in 2015. And the tracheostomy. Acute lactic acidosis secondary to sepsis and septic shock. Acute kidney injury secondary to sepsis and septic shock. Acute troponin leak. History of COPD. History of hypothyroidism. History of hypertension. Acute upper GI bleeding could be secondary to erosive gastritis or gastric ulcer disease. Patient is not a candidate for EGD, will recommend to continue Protonix. Recommendation: Continue ventilatory support. Continue hemodialysis. Continue nutritional support. Continue blood pressure support/pressors and fluids. Continue antibiotics Patient is not a candidate for remdesivir and definitely not a candidate for baricitinib Continue COVID-19 cocktail.Continue Protonix. Continue bronchodilators. Will have to discuss with the again possibly seriously considering comfort care measures, patient is obviously critically ill, and basically condition is futile. Will continue to follow. Critical care time is over 30 minutes Time with Patient: Greater than 30
[2020-12-29 19:02] LABS: Glucose,Whole Blood 164 mg/dL (75-99)
[2020-12-29] MEDS: AMIODARONE 200 MG TAB PO SCH (19:59)
[2020-12-29] MEDS: INSULIN DETEMIR (LEVEMIR) 100 UNIT/ML SYR SQ SCH (20:01)
[2020-12-29 20:13] LABS: Glucose,Whole Blood 161 mg/dL (75-99)
[2020-12-29 23:02] LABS: Glucose,Whole Blood 170 mg/dL (75-99)
[2020-12-29] MEDS: CISATRACURIUM 200 MG in SODIUM CHLORIDE 0.9% 180 ML IV SCH (23:25)
[2020-12-30] MEDS: SODIUM CHLORIDE 0.9% 150 ML with VASOPRESSIN 60 UNIT IV SCH ×2 (00:53)
[2020-12-30] MEDS: fentaNYL (PF). 1,000 MCG in SODIUM CHLORIDE 0.9% 80 ML IV SCH ×2 (01:37→10:53)
[2020-12-30] MEDS: NOREPINEPHRINE 32 MG in SODIUM CHLORIDE 0.9% 218 ML IV SCH (01:52)
[2020-12-30 05:24] LABS: Glucose,Whole Blood 180 mg/dL (75-99)
[2020-12-30 05:35] LABS: HCT 22.1 % (39.0-53.0); MCH 30.6 pg (25.0-35.0); MCHC 33.3 g/dL (31.0-37.0); MCV 91.7 fL (80.0-100.0); Mean Platelet Volume 11.3; Platelet Count 168 k/uL (150-450); RBC 2.41 m/uL (4.30-5.90); RDW 14.5 % (11.5-15.5); WBC 14.7 k/uL (3.8-10.6)
[2020-12-30 05:39] LABS: ABG Base Excess -0.6 mmol/L; ABG HCO3 28 mmol/L (21-25); ABG Oxygen Saturation 93.7 % (94-97); ABG PO2 87 mmHg (83-108); ABG TCO2 30 mmol/L (19-24); Allen Test Performed? Yes
[2020-12-30 05:39] LABS: HGB 7.4 gm/dL (13.0-17.5)
[2020-12-30 05:42] LABS: ABG PCO2 72 mmHg (35-45); ABG PH 7.19 (7.35-7.45)
[2020-12-30] MEDS: LEVOTHYROXINE 88 MCG TAB PO SCH (05:51)
[2020-12-30] MEDS: methylPREDNISolone SOD SUCCI 125 MG/2 ML VIAL IV SCH (05:51)
[2020-12-30] MEDS: INSULIN ASPART (NovoLOG) 100 UNIT/ML VIAL SQ SCH ×2 (05:51)
[2020-12-30 06:23] LABS: Calcium 6.8 mg/dL (8.4-10.2); Potassium 5.6 mmol/L (3.5-5.1)
--- NOTE | 2020-12-30 07:27 | P.PN ---
Subjective Progress Note Date: 12/30/20 Principal diagnosis: This is a 60-year-old male seen in consultation with acute kidney injury, started on dialysis on December 27 and was dialyzed yesterday , 2 days in a row He has Covid positive state as well as strep pneumonia bacteremia. He is on 100% FiO2. Had A. fib and was started on and Amiodarone with reversion back to normal sinus rhythm He is on small doses of levo fed. He has severe respiratory acidosis in spite of having a respiratory rate set at 36 Yesterday on dialysis he was stable blood pressure in the 90s with the slight increase in the levo fed requirement. Ultrafiltration was +300 mL during dialysis This morning his blood pressure is stable. He remains on 100% FiO2 with a PEEP of 20, blood gases show pH of 7.1 to pCO2 72 and pO2 87. He is anuric. Potassium is 5.6 He is on vancomycin at the level of 21 Hemoglobin went down again from 11.4, 2 days ago to 9 and 7.4 this morning Objective - Vital Signs Vital signs: Vital Signs Temp 98.6 F 12/30/20 04:00 Pulse 92 12/30/20 06:30 Resp 38 H 12/30/20 06:30 BP 121/57 12/30/20 06:30 Pulse Ox 92 L 12/30/20 06:30 Intake & Output 12/29/20 12/30/20 12/30/20 18:59 06:59 18:59 Intake Total 1394.904 358.904 Output Total 1100 5 Balance 294.904 353.904 Weight 113.1 kg Intake: IV 143 123 .9 110 120 Pressure Bag 33 3 Intake, IV Titration 1251.904 235.904 Amount Cisatracurium 200 mg In 200 Sodium Chloride 0.9% 180 ml @ 1 MCG/KG/MIN 6.205 mls/hr IV .Q24H [facility] Rx#: [id number] Dextrose 5% in Water 1, 825 75 000 ml @ 75 mls/hr IV . [id number] [facility] with Sodium Bicarb (1 Meq/ml) 150 ml Rx#:[id number] Norepinephrine 32 mg In 122.433 61.967 Sodium Chloride 0.9% 218 ml @ 0.5 MCG/KG/MIN 23. 813 mls/hr IV .[id number] [facility] Rx#:[id number] fentaNYL (PF). 1,000 mcg 100 94.629 In Sodium Chloride 0.9% 80 ml @ 0.5 MCG/KG/HR 5. 171 mls/hr IV .[id number] [facility] Rx#:[id number] propofoL 1,000 mg In 4.471 4.308 Empty Bag 1 bag @ Titrate IV .Q0M [facility] Rx#: [id number] Tube Feeding 0 Hemodialysis 0 Output: Urine 0 5 Oral Regurgitation 800 Hemodialysis 300 Other: Voiding Method Indwelling Catheter Indwelling Catheter ABP, PAP, CO, CI - Last Documented Arterial Blood Pressure 129/53 On exam his sedated and ventilated Lungs are clear to auscultation fair air entry bilaterally Heart sounds unremarkable for any murmur rub gallop Abdomen soft nondistended Extremity exam was trace edema - Labs CBC & Chem 7: 12/30/20 05:20 12/30/20 05:20 Labs: Abnormal Lab Results - Last 24 Hours (Table) 12/29/20 12/29/20 12/29/20 Range/Units 02:00 10:28 13:43 WBC 16.3 H (3.8-10.6) k/uL RBC 2.90 L (4.30-5.90) m/uL Hgb 9.0 L (13.0-17.5) gm/dL Hct 27.0 L (39.0-53.0) % Plt Count 149 L (150-450) k/uL Neutrophils # 15.5 H (1.3-7.7) k/uL Lymphocytes # 0.2 L (1.0-4.8) k/uL ABG pH (7.35-7.45) ABG pCO2 (35-45) mmHg ABG HCO3 (21-25) mmol/L ABG Total CO2 (19-24) mmol/L ABG O2 Saturation (94-97) % Potassium 6.1 H* (3.5-5.1) mmol/L Chloride 109 H (98-107) mmol/L Carbon Dioxide 16 L (22-30) mmol/L BUN 72 H (9-20) mg/dL Creatinine 6.15 H (0.66-1.25) mg/dL Glucose 160 H (74-99) mg/dL POC Glucose (mg/dL) 143 H (75-99) mg/dL Calcium 7.3 L (8.4-10.2) mg/dL 12/29/20 12/29/20 12/29/20 Range/Units 19:01 20:12 23:00 WBC (3.8-10.6) k/uL RBC (4.30-5.90) m/uL Hgb (13.0-17.5) gm/dL Hct (39.0-53.0) % Plt Count (150-450) k/uL Neutrophils # (1.3-7.7) k/uL Lymphocytes # (1.0-4.8) k/uL ABG pH (7.35-7.45) ABG pCO2 (35-45) mmHg ABG HCO3 (21-25) mmol/L ABG Total CO2 (19-24) mmol/L ABG O2 Saturation (94-97) % Potassium (3.5-5.1) mmol/L Chloride (98-107) mmol/L Carbon Dioxide (22-30) mmol/L BUN (9-20) mg/dL Creatinine (0.66-1.25) mg/dL Glucose (74-99) mg/dL POC Glucose (mg/dL) 164 H 161 H 170 H (75-99) mg/dL Calcium (8.4-10.2) mg/dL 12/30/20 12/30/20 12/30/20 Range/Units 05:20 05:20 05:22 WBC 14.7 H (3.8-10.6) k/uL RBC 2.41 L (4.30-5.90) m/uL Hgb 7.4 L D (13.0-17.5) gm/dL Hct 22.1 L (39.0-53.0) % Plt Count (150-450) k/uL Neutrophils # (1.3-7.7) k/uL Lymphocytes # (1.0-4.8) k/uL ABG pH (7.35-7.45) ABG pCO2 (35-45) mmHg ABG HCO3 (21-25) mmol/L ABG Total CO2 (19-24) mmol/L ABG O2 Saturation (94-97) % Potassium 5.6 H (3.5-5.1) mmol/L Chloride (98-107) mmol/L Carbon Dioxide (22-30) mmol/L BUN 80 H (9-20) mg/dL Creatinine 6.44 H (0.66-1.25) mg/dL Glucose 172 H (74-99) mg/dL POC Glucose (mg/dL) 180 H (75-99) mg/dL Calcium 6.8 L (8.4-10.2) mg/dL 12/30/20 Range/Units 05:35 WBC (3.8-10.6) k/uL RBC (4.30-5.90) m/uL Hgb (13.0-17.5) gm/dL Hct (39.0-53.0) % Plt Count (150-450) k/uL Neutrophils # (1.3-7.7) k/uL Lymphocytes # (1.0-4.8) k/uL ABG pH 7.19 L* (7.35-7.45) ABG pCO2 72 H* (35-45) mmHg ABG HCO3 28 H (21-25) mmol/L ABG Total CO2 30 H (19-24) mmol/L ABG O2 Saturation 93.7 L (94-97) % Potassium (3.5-5.1) mmol/L Chloride (98-107) mmol/L Carbon Dioxide (22-30) mmol/L BUN (9-20) mg/dL Creatinine (0.66-1.25) mg/dL Glucose (74-99) mg/dL POC Glucose (mg/dL) (75-99) mg/dL Calcium (8.4-10.2) mg/dL Assessment and Plan Plan: Depression 1. Acute kidney injury, ATN secondary to COVID 19 pneumonia as well as Streptococcus pneumonia with bacteremia. Started hemodialysis 12/27/2020 and was dialyzed yesterday 12/29/2020 2. Severe respiratory acidosis as well as metabolic acidosis. 3.Covid + strep Pneumonia with bacteremia 4. VDRF, 100% FIO2, PEEP of 20 with respiratory acidosis and a chest x-ray is indicated of infiltrates rather than congestive heart failure 5. GI bleed, anemia with hemoglobin 7.4 Recommendation 1. Plan to dialyze him tomorrow and will attempt fluid removal and give him sl ow low efficiency dialysis over 6 hours
--- NOTE | 2020-12-30 07:30 | XR ---
EXAMINATION TYPE: XR chest 1V portable DATE OF EXAM: 12/30/2020 COMPARISON: Chest x-ray 12/29/2020 HISTORY: Intubated TECHNIQUE: Single frontal view of the chest is obtained. FINDINGS: Endotracheal tube and NG tube are overlying appropriate positions. Bilateral airspace dise ase shows a similar appearance. There are overlying artifacts. Cardiac mediastinal silhouette is unch anged. Suspect some improvement in aeration at the left lung base. IMPRESSION: There may be some improvement in aeration.
[2020-12-30] MEDS: HEPARIN SOD,PORK IN 0.45% NACL 25,000 UNIT in 0.45% NACL 1 250ML.BAG IV SCH (07:33)
[2020-12-30] MEDS: ALBUTEROL HFA INHALER INHALATION PRN ×2 (07:41→12:17)
[2020-12-30] MEDS: CHOLECALCIFEROL 25 MCG (1000 IU) TABLET PO SCH (08:14)
[2020-12-30] MEDS: AMIODARONE 200 MG TAB PO SCH (08:14)
[2020-12-30] MEDS: METOPROLOL TARTRATE 25 MG TAB PO SCH (08:14)
[2020-12-30] MEDS: ZINC SULFATE 220 MG CAP PO SCH (08:14)
[2020-12-30] MEDS: CHLORHEXIDINE GLUCONATE 15 ML CUP MUCOUS MEM SCH (08:15)
[2020-12-30] MEDS: ARTIFICIAL TEARS-HYPROMELLOSE DROPS 15 ML BTL BOTH EYES SCH (08:15)
[2020-12-30] MEDS: ASCORBIC ACID 500 MG TAB PO SCH (08:15)
[2020-12-30] MEDS: PANTOPRAZOLE 40 MG/10 ML VIAL IVP SCH (08:15)
[2020-12-30 08:28] VITALS: TEMP 98.2
--- NOTE | 2020-12-30 11:01 | PN ---
PROGRESS NOTE Mr. Harman is a 60-year-old male who presented with respiratory failure and COVID-19 pneumonia. He has prior history of laryngeal carcinoma requiring tracheostomy. He is mechanically ventilated at this time. He continues to be in sinus mechanism. Hemodynamically he is stable. He is receiving hemodialysis and unfortunately continues to be quite unstable, requiring vasopressors. His anticoagulation is on hold because of GI bleeding. His dose of norepinephrine has been decreased. He has continued to be in sinus mechanism. He continues to be at this time on amiodarone 400 mg twice a day. He has been re-initiated on the heparin. He is on insulin, metoprolol tartrate 25 mg twice a day. Blood pressure is running in the 110s with a heart rate in the 90s. No physical examination was done to limit the exposure. Lab data revealed hemoglobin 7.4, pH of 7.19, BUN and creatinine of 80 and 6.44, potassium 5.6. IMPRESSION: 1. Respiratory failure with COVID-19 pneumonia with superimposed bacterial pneumonia. 2. Septic shock. 3. History of laryngeal carcinoma with prior laryngectomy and tracheostomy. 4. Paroxysmal atrial fibrillation. 5. Acute renal injury requiring dialysis. 6. Hypertension related to infectious process. RECOMMENDATIONS: Will continue present therapy. Unfortunately the prognosis is quite poor. Will see him on an as-needed basis. Please free feel free to call us for any questions. MMODL / IJN: [id number] /
--- NOTE | 2020-12-30 11:16 | P.PN ---
Subjective Progress Note Date: 12/30/20 History of present illness 60 years old male with past medical history of laryngeal cancer status post laryngectomy and radiation in 2015 status post tracheostomy, history of hypothyroidism, COPD, hypertension comes in with acute shortness of breath associated with cough with phlegm production, reddish to brownish in color, associated with fever or chills and fatigue. Patient states his grandchildren were sick and he caught the infection from them. He also endorses right-sided chest pain on deep breath. Patient was noted to be afebrile pulse of 110 respiratory rate 18 blood pressure 76/48 oxygen saturation 85% on room air. Oxygen improved to 92% on trach ordered. EKG was obtained patient was sinus tachycardia no ST segment deviation noted with QTc interval of 418. Chest x-ray 12/24 suggestive of mild strandy density left lower lobe with was consolidation involving the right upper lung concerning for overlying bacterial pneumonia. Labs reviewed suggested of a visible 4.4 hemoglobin 18.2 platelets 137 INR 1.1 bicarb 19 BUN 32 creatinine 2.29, lactic acid of 5.5 AST 116 ALT 60 troponin 0.238. COVID is positive. We will give the patient will complete total 3 L IV bolus of normal saline. One dose of Rocephin and azithromycin. Neck ER. Pulmonary is consulted. Patient initiated on Solu-Medrol 60 every 6. DuoNeb will be continued as needed for shortness of breath. Patient will be initiated on remdesivir. Cardiology was consulted with increase in troponin. 12/25 Patient is seen today on 12/25. Patient got intubated yesterday 12/19 5 in the evening as unable to maintain oxygenation on trach collar. Patient was placed on mechanical ventilator with the settings of assist control rate of 34 tidal volume 450 FiO2 90% and PEEP of 12. ABG was obtained with a pH of 7.15 pCO2 48 pO2 112. Patient started on norepinephrine drip, vasopressin drip, propofol, fentanyl, Pneumovax and and bicarb drip. NG tube will be placed today to help with intestinal feeding. Blood cultures are positive for gram-positive cocci. Antibiotics patient from ceftriaxone and azithromycin to Zosyn and vancomycin. Labs were reviewed, patient has a WBC 11.3 hemoglobin 16 platelet 177 chloride 114 bicarb 17 BUN 40 creatinine 2.65, glucose 185 lactic acid of 4 calcium 6.3. 12/26 Patient remains intubated on droplet precautions for COVID. Continues to remain intubated on 70% FiO2 PEEP of 16 respiratory rate 34 arm tidal volume of 450. Because of the patient's afebrile pulse 75 respiratory rate 30 4R blood pressure 107/62 oxygen saturation 91% on if I O2 of 70%. Labs are reviewed patient is an insulin-dependent hemoglobin 14.1 platelet 137 d-dimer is elevated at 1.4. 7.3 and 46 pO2 of 78. Insulin 37 potassium 5 bicarb 21 and 59 creatinine 4.17 glucose 264 calcium 6 ionized calcium 3.6, LDH 2155 CRP 3056.2 albumin 2. Urine output was 180 ml in the last 24 hour. She'll see one dose of IV Lasix 80 mg today. If no improvement in urine output. Patient will be pl aced on renal replacement therapy. One dose 2 g of calcium gluconate given. Patient continues to remain on vasopressin and was febrile fed for pressure. Solu-Medrol a 60 IV every 6. Lantus initiated 15 units. Lovenox increased to 100 mg subcu twice a day. 12/27: Patient remains in intensive care unit. Patient remains intubated and on mechanical ventilation with tidal volume 450, FiO2 55, PEEP of 16. Nephrology has seen the patient and plan for hemodialysis and dialysis catheter being elisabeth lolis at the time of this evaluation. Noted that he has been made a DO NOT RESUSCITATE status. Repeat blood work reveals LVH 2344, C-reactive protein 57. Repeat chest x-ray showing bilateral interstitial infiltrates. Blood cultures are positive for Streptococcus pneumoniae. 12/28: Patient remains in the intensive care unit, intubated and on mechanical ventilation with tidal volume 450, FiO2 is increased to 100 during the night, PEEP 16. Heart rate is running in the 1 teens, respiratory rate 36, pulse ox 87%. Patient has been afebrile. Repeat blood work reveals WBC 14.7, hemoglobin 11.4, platelet count 112. Sodium 136, potassium 5.8, chloride 103, CO2 19, BUN 79 creatinine 6.7. TSH 0.153, free T4 0.69 urea blood sugars are running 181- 237. He is status post right femoral dialysis catheter placement by Dr. Ann and was started on hemodialysis yesterday. Patient has been oliguric. Patient also went into A. fib with RVR and started on amiodarone and heparin. Patient is on levo fed, propofol, Nimbex,, fentanyl. He is off vasopressin. Patient was made no code yesterday. 12/29: Patient remains in ICU, on mechanical ventilation. Patient is on assist control rate of 34 tidal volume 450 FiO2 100% and PEEP of 16. Chest x-ray shows worsening progression. Patient remains on Zosyn and vancomycin along with Solu- Medrol. The boxing and pressing supervisor did have a discussion with the yesterday and nursing reports they're considering comfort care measures. Nephrology plans on dialysis again today, potassium was 6.1, BUN 72, creatinine 6.15. Patient did have dark red blood output from NG tube and heparin drip was discontinued. Hemoglobin was down to 10.0 this morning from 11.4 yesterday. 12/30: Patient reevaluated today, remains sedated on mechanical ventilation with assist control of 38, FiO2 100%. Hemoglobin down to 7.4 this morning with intermittent episodes of upper GI bleeding. Component Assembler Supervisor did speak with again yesterday, she still in the process of considering comfort care measures patient remains a DO NOT RESUSCITATE. Review of system Could not be obtained patient is intubated Physical exam Deferred to boxing and pressing supervisor. Assessment and plan #1 septic shock secondary to COVID pneumonia with streptococcal pneumonia and streptococcal bacteremia. Patient is continued on Zosyn, vancomycin, continue vasopressor support, boxing and pressing supervisor consult appreciated. Continue vitamin supplements, Solu-Medrol 60 mg IV every 6 hours. #2 acute hypoxic respiratory failure mechanically ventilated through tracheostomy since 12/24 secondary to COVID and superimposed bacterial pneumonia not a candidate for remdesivir. #3 acute COPD exacerbation Pulmicort twice daily inhaler, DuoNeb as needed for shortness of breath, incentive spirometry, sputum culture. Continue Solu-Medrol 60 IV every 6 hours #4 troponin elevation rule out ACS. EKG dated the first ST elevation depression. Likely type II myocardial infarction. Cardiology consulted. #5 hyperglycemia A1c ordered on steroids. Levemir 10 units at bedtime, insulin scale every 6 hours. #6 hypertension. Hold losartan 50 mg by mouth daily #7 hypocalcemia s/p calcium gluconate. #8 GERD and GI prophylaxis. Continue Protonix 40 mg IV daily. #9 history of laryngeal cancer status post laryngectomy and radiation . Has tracheostomy currently on mechanical ventilation #10 acute kidney injury on CK D3. Status post femoral dialysis cath and started dialysis 12/27. Nephrology consult appreciated. Had dialysis yesterday. #11 acute transaminitis likely secondary to COVID infection. Continue to monitor. #12 metabolic acidosis secondary to sepsis. #13 new-onset paroxysmal atrial fibrillation. Patient is on amiodarone drip and heparin was discontinued due to GI bleed. #14 hypothyroidism continue levothyroxine at 88 g by mouth daily #15 DVT prophylaxis. Heparin drip discontinued due to GI bleed. #16 GI bleed. Off anticoagulation at this time continue to monitor CBCs. CODE STATUS: No code. Prognosis guarded Impression and plan of care have been directed as dictated by the signing physician. Jessenia Cortez nurse practitioner acting as scribe for signing physician. Objective - Vital Signs Vital signs: Vital Signs Temp 98.2 F 12/30/20 08:00 Pulse 80 12/30/20 10:00 Resp 38 H 12/30/20 10:00 BP 92/54 12/30/20 10:00 Pulse Ox 92 L 12/30/20 10:00 Intake & Output 12/29/20 12/30/20 12/30/20 18:59 06:59 18:59 Intake Total 1394.904 358.904 77.415 Output Total 1100 5 25 Balance 294.904 353.904 52.415 Weight 113.1 kg Intake: IV 143 123 49 .9 110 120 40 Pressure Bag 33 3 9 Intake, IV Titration 1251.904 235.904 28.415 Amount Cisatracurium 200 mg In 200 Sodium Chloride 0.9% 180 ml @ 1 MCG/KG/MIN 6.205 mls/hr IV .Q24H BUCK Rx#: [id number] Dextrose 5% in Water 1, 825 75 000 ml @ 75 mls/hr IV . [id number] BUCK with Sodium Bicarb (1 Meq/ml) 150 ml Rx#:[id number] Norepinephrine 32 mg In 122.433 61.967 26.702 Sodium Chloride 0.9% 218 ml @ 0.5 MCG/KG/MIN 23. 813 mls/hr IV .[id number] BUCK Rx#:[id number] fentaNYL (PF). 1,000 mcg 100 94.629 In Sodium Chloride 0.9% 80 ml @ 0.5 MCG/KG/HR 5. 171 mls/hr IV .[id number] BUCK Rx#:[id number] propofoL 1,000 mg In 4.471 4.308 1.713 Empty Bag 1 bag @ Titrate IV .Q0M BUCK Rx#: [id number] Tube Feeding 0 Hemodialysis 0 Output: Gastric Drainage 25 Urine 0 5 0 Oral Regurgitation 800 Hemodialysis 300 Other: Voiding Method Indwelling Catheter Indwelling Catheter Indwelling Catheter ABP, PAP, CO, CI - Last Documented Arterial Blood Pressure 121/51 - Labs CBC & Chem 7: 12/30/20 05:20 12/30/20 05:20 Labs: Abnormal Lab Results - Last 24 Hours (Table) 12/29/20 12/29/20 12/29/20 Range/Units 13:43 19:01 20:12 WBC (3.8-10.6) k/uL RBC (4.30-5.90) m/uL Hgb (13.0-17.5) gm/dL Hct (39.0-53.0) % ABG pH (7.35-7.45) ABG pCO2 (35-45) mmHg ABG HCO3 (21-25) mmol/L ABG Total CO2 (19-24) mmol/L ABG O2 Saturation (94-97) % Potassium (3.5-5.1) mmol/L BUN (9-20) mg/dL Creatinine (0.66-1.25) mg/dL Glucose (74-99) mg/dL POC Glucose (mg/dL) 143 H 164 H 161 H (75-99) mg/dL Calcium (8.4-10.2) mg/dL 12/29/20 12/30/20 12/30/20 Range/Units 23:00 05:20 05:20 WBC 14.7 H (3.8-10.6) k/uL RBC 2.41 L (4.30-5.90) m/uL Hgb 7.4 L D (13.0-17.5) gm/dL Hct 22.1 L (39.0-53.0) % ABG pH (7.35-7.45) ABG pCO2 (35-45) mmHg ABG HCO3 (21-25) mmol/L ABG Total CO2 (19-24) mmol/L ABG O2 Saturation (94-97) % Potassium 5.6 H (3.5-5.1) mmol/L BUN 80 H (9-20) mg/dL Creatinine 6.44 H (0.66-1.25) mg/dL Glucose 172 H (74-99) mg/dL POC Glucose (mg/dL) 170 H (75-99) mg/dL Calcium 6.8 L (8.4-10.2) mg/dL 12/30/20 12/30/20 Range/Units 05:22 05:35 WBC (3.8-10.6) k/uL RBC (4.30-5.90) m/uL Hgb (13.0-17.5) gm/dL Hct (39.0-53.0) % ABG pH 7.19 L* (7.35-7.45) ABG pCO2 72 H* (35-45) mmHg ABG HCO3 28 H (21-25) mmol/L ABG Total CO2 30 H (19-24) mmol/L ABG O2 Saturation 93.7 L (94-97) % Potassium (3.5-5.1) mmol/L BUN (9-20) mg/dL Creatinine (0.66-1.25) mg/dL Glucose (74-99) mg/dL POC Glucose (mg/dL) 180 H (75-99) mg/dL Calcium (8.4-10.2) mg/dL
[2020-12-30 11:27] LABS: Glucose,Whole Blood 163 mg/dL (75-99)
[2020-12-30] MEDS ORDERED: ONDANSETRON 4 MG/2 ML VIAL IVP PRN (12:52)
[2020-12-30] MEDS ORDERED: ATROPINE OPHTH SOLN 1% 5ML BTL SUBLINGUAL PRN (12:52)
[2020-12-30] MEDS ORDERED: GLYCOPYRROLATE 0.2 MG/ML 2 ML VIAL IVP PRN (12:52)
[2020-12-30] MEDS ORDERED: MORPHINE SULFATE 4 MG/ML SYRINGE IV PRN (12:52)
[2020-12-30] MEDS ORDERED: MORPHINE SULFATE 2 MG/ML SYRINGE IV PRN (12:52)
[2020-12-30] MEDS ORDERED: MORPHINE SULFATE (100 MG/2 ML) 100 MG in SODIUM CHLORIDE 0.9% 100 ML IV SCH (13:00)
[2020-12-30 15:36] VITALS: BP 118/65; PULSE 91; RESP 39
--- NOTE | 2020-12-30 16:23 | P.PN ---
Subjective Progress Note Date: 12/30/20 Principal diagnosis: Acute hypoxic respiratory failure secondary to 19 pneumonia, possible aspiration pneumonia, and septic shock with bacteremia This is a 60-year-old white male patient past medical history of laryngeal cancer (squamous cell carcinoma) with history of laryngectomy and radiation in 2015, status post tracheostomy, history of hypothyroidism, COPD, hypertension. Patient came into the emergency department on 12/24/2020 for evaluation of acute shortness of breath, associated with cough and phlegm production. He is producing reddish to brownish colored phlegm, he had fever, chills and fatigue. Patient states one of his grandchildren was sick, and he believes he may have caught the infection from them. He endorses right-sided chest pain with a deep inspiration. In the emergency department since he was hypotensive with blood pressure of 76/48, and his pulse ox was 70% on room air. He currently has a non-cuffed cannula this inserted into his tracheotomy opening in his neck, he was placed on 92% trach collar, however his pulse ox is still 83%. Patient is audibly congested and short of breath. He is using accessory muscles of breathing. He is using of voice box to respond verbally, he is tachycardic on the monitor, but in sinus mechanism. His chest x-ray showed mild strandy density at the left lower lobe with consolidation involving the right upper lung concerning for bacterial pneumonia possibly aspiration related pneumonia. His labs showed white blood cell count of 4.4, hemoglobin of 18.2, platelets of 137, INR 1.1, BUN of 32, creatinine of 2.29, lactic acid was 5.5, AST was 116, ALT was 60, troponin was 0.238. COVID-19 PCR was positive. Patient was started on fluid resuscitation and will be given a total of 3 L and IV fluid boluses. He was initially started on Rocephin and azithromycin in the emergency department. He was started on IV Solu-Medrol 60 g every 6 hours and nebulized bronchodilators. Is currently still requiring high flow oxygen per trach collar, still remains very hypoxic, and short of breath. He will be transferred to the ICU, and the tracheostomy will be placed and patient will be placed on the mechanical ventilator. Patient was reevaluated today on 12/25/20, patient remains intubated and mechanically ventilated. His ventilator settings are assist control rate of 34 volume 450 FiO2 90% and we cut it down to 70%, PEEP is at 12. ABG showed a pO2 of 112 pCO2 48 pH of 7.15. Patient remains on bicarb drip, norepinephrine at 0.5 mcg/kg/m, Nimbex, and vasopressin. To maintain adequate blood pressure. Patient received earlier this morning sodium bicarb and received fluid boluses total of 5 L since admission. Blood cultures came back positive for gram- positive cocci. Identification is pending. In the meantime the patient is on antibiotics in the form of Zosyn and vancomycin. Labs today were reviewed, electrolytes are normal renal profile is about the same compared to yesterday with a BUN of 40 creatinine 2.65, lactic acid is 4.0 this morning. And blood sugar is 197. Chest x-ray shows right upper lobe reticular nodular opacity and left lower lobe as well as right lower lobe bibasilar opacities. Reevaluated today on 12/26/20, patient remains in the ICU, intubated and mechanically ventilated. He is on assist control rate of 34 Tylenol volume 450 FiO2 of 70% PEEP is 12 and I increased the PEEP up to 16 today. ABG showed a pO2 of 78 pCO2 of 46 pH of 7.32. Patient remains on propofol at 45, Nimbex at 3, IV fluid at KVO. He remains on bicarb drip, norepinephrine at 0.18 mcg/kg/m, fentanyl 1 mcg/kg per hour. And is also on a bicarb drip. After noticing the ABG and his electrolytes, his bicarb was discontinued. Since his bicarb is 21 today on the electrolytes. WBC count is 10.7 hemoglobin is 14.1. Platelets are 137. D-dimer is 1.41 blood cultures on admission were positive for gram- positive cocci. Sputum cultures so far nondiagnostic. Many gram-positive cocci noted, and many polymorphonuclears noted in the sputum sample chest x-ray showed diffuse increased lung markings right more so than left, and also increased markings in the left lower lobe. As well as right upper lobe. Renal ultrasound is basically unremarkable. No hydronephrosis noted. Antibiotics kelley, patient remains on Zosyn. And vancomycin. Reevaluated today on 12/27/20, patient remains in the ICU, intubated and mechanically ventilated. Remains on assist control rate of 34 tidal volume 450 FiO2 70%, and I cut it down to 60%, PEEP of 16 ABG showed a pO2 of 89 pCO2 56 pH of 7.24, however I noted there was a bit of a leak around the cuff of the endotracheal tube, and after adjustment of the endotracheal tube and put more air in the cuff, noted better tidal volumes and I would assume that has fixed his hypercapnia. Patient remains on propofol at 65, fentanyl 1 mcg/kg/h is also on norepinephrine at 0.18 vasopressin is off, Nimbex remained the same. PEEP remains at 16. Peak airway pressure is 29. Plateau pressure is 24. Patient remains on empiric antibiotics. His renal functioning seems to be worse, and he was seen by nephrology, planning hemodialysis. Hence I discussed his condition with the today, and updated her on his status, made aware that he is critically ill, and mortality is probably in the range of 80%. Family seems to be agreeable to go and proceed with hemodialysis, but his CODE STATUS has been changed to DO NOT RESUSCITATE CODE STATUS. Labs from today were all noted, his LDH is 2344 C-reactive protein is 57. Chest x-ray is showing bilateral interstitial infiltrates, seems to be worse in the right upper lobe but slight improvement is noted in the right upper lobe infiltrates. Compared to yesterday Reevaluated today on 12/28/20, patient remains in the ICU, intubated, and mechanically ventilated. Patient is on assist control rate of 34 tidal volume 450 FiO2 on the percent PEEP of 16. Chest x-ray seems to be getting worse, ABG is also getting course, pO2 is 69 pCO2 55 pH of 7.21. Patient remains on Zosyn, vancomycin Solu-Medrol, he is on multiple drips including propofol, Nimbex, fentanyl, amiodarone, and on norepinephrine. He developed atrial fibrillation with RVR yesterday, and I had to place the patient on full anticoagulation therapy and on amiodarone. Hemodialysis was done yesterday, able to remove no more than 300 mL. Overall picture does not look great, today I discussed his status with the over the phone, and she seems to be very inclined to consider comfort care measures on this patient. And I believe that is quite appropriate. WBC count today is 14.7 hemoglobin is 11.4 electrolytes are normal except for potassium of 5.8. Renal profile showed a BUN of 79 creatinine 6.7. Reevaluated today on 12/29/20, patient remains in the ICU, intubated and mechanically ventilated. He is now on assist control rate of 38 tidal volume 450 FiO2 of 100% and PEEP of 18. His ABG remains poor, relatively hypoxic and hypercapnic. Patient remains sedated and paralyzed, he is requiring also norepinephrine. His ABG today showed a pO2 of 72 pCO2 71 pH of 7.12. Potassium is 6.1 BUN is 72 creatinine 6.15 bicarb is 16. Obviously his hyperkalemia is secondary to acute metabolic acidosis as well as acute respiratory acidosis with hypercapnia. WBC count is 16.3 hemoglobin is 9. Cultures on admission were pos itive for Streptococcus pneumonia. Obviously the patient has COVID-19 pneumonia and superimposed streptococcal pneumonia with bacteremia. Patient remains on norepinephrine at 0.31 mcg/kg/m Nimbex at 2 mcg/kg/m propofol 55 mcg/kg/m and fentanyl 1 mcg/kg per hour. Asked x-ray continues to show bilateral diffuse interstitial infiltrates. Yesterday the patient developed intermittent episodes of upper GI bleeding, hence heparin was placed on hold although the patient had atrial fibrillation with RVR, and he had suspicion for chronic left lower extremity deep vein thrombosis. His was updated on his condition yesterday, and she is still in the process of considering comfort care measures. CODE STATUS remains DO NOT RESUSCITATE. Reevaluated today on , patient remains in the ICU, intubated and mechanically ventilated. He is on assist control rate of 38 tidal volume 450 FiO2 100% PEEP of 18 ABG showed a pO2 of 87 pCO2 72 pH of 7.19. Patient continues to do poorly, his chest x-ray seems to be getting worse. His renal functioning is also getting worse with a BUN of 80 creatinine 6.44. Bicarb is 25. WBC is 14.7 hemoglobin of 7.4. Patient remains on Nimbex, propofol, fen tanyl, and IV fluid at a 5 mL per hour. His also on norepinephrine at 0.13 mcg/kg/m. Family has been updated on a daily basis on his condition, and according to the nurse taking care of the patient this morning, family is planning to come in and arrange for comfort care measures. In fact the patient did undergo comfort care measures, and shortly after, patient passed peacefully. Objective - Vital Signs Vital signs: Vital Signs Temp 98.2 F 12/30/20 08:00 Pulse 91 12/30/20 15:00 Resp 39 H 12/30/20 15:00 BP 118/65 12/30/20 15:00 Pulse Ox 83 L 12/30/20 15:00 Intake & Output 12/29/20 12/30/20 12/30/20 18:59 06:59 18:59 Intake Total 1394.904 358.904 798.774 Output Total 1100 5 25 Balance 294.904 353.904 773.774 Weight 113.1 kg Intake: IV 143 123 439 .9 110 120 415 Pressure Bag 33 3 24 Intake, IV Titration 1251.904 235.904 359.774 Amount Cisatracurium 200 mg In 200 174.361 Sodium Chloride 0.9% 180 ml @ 1 MCG/KG/MIN 6.205 mls/hr IV .Q24H [facility] Rx#: [id number] Dextrose 5% in Water 1, 825 75 000 ml @ 75 mls/hr IV . [id number] BUCK with Sodium Bicarb (1 Meq/ml) 150 ml Rx#:[id number] Norepinephrine 32 mg In 122.433 61.967 59.009 Sodium Chloride 0.9% 218 ml @ 0.5 MCG/KG/MIN 23. 813 mls/hr IV .[id number] [facility] Rx#:[id number] fentaNYL (PF). 1,000 mcg 100 94.629 122.553 In Sodium Chloride 0.9% 80 ml @ 0.5 MCG/KG/HR 5. 171 mls/hr IV .[id number] [facility] Rx#:[id number] propofoL 1,000 mg In 4.471 4.308 3.851 Empty Bag 1 bag @ Titrate IV .Q0M [facility] Rx#: [id number] Tube Feeding 0 Hemodialysis 0 Output: Gastric Drainage 25 Urine 0 5 0 Oral Regurgitation 800 Hemodialysis 300 Other: Voiding Method Indwelling Catheter Indwelling Catheter Indwelling Catheter ABP, PAP, CO, CI - Last Documented Arterial Blood Pressure 98/46 - Exam GENERAL EXAM: Revealed a 60-year-old white male intubated, sedated, and paralyzed. HEAD: Normocephalic/atraumatic. EENT PERRLA, EOMI, anicteric, no neck masses, no JVD. NECK: Surgical changes noted in the neck, endotracheal tube noted in the tracheostomy, connected to mechanical ventilation. CHEST: No chest wall deformity. Symmetrical expansion. LUNGS: Records and rhonchi noted bilaterally. CVS: Regular rate and rhythm, normal S1 and S2, no gallops, no murmurs, no rubs ABDOMEN: Soft, nontender. No hepatosplenomegaly, normal bowel sounds, no guarding or rigidity. EXTREMITIES: No clubbing, no edema, no cyanosis, 2+ pulses and upper and lower extremities. MUSCULOSKELETAL: No deformities. SKIN: No rashes CENTRAL NERVOUS SYSTEM: Cannot assess, patient is sedated and paralyzed. PSYCHIATRIC: Could not assess - Labs CBC & Chem 7: 12/30/20 05:20 12/30/20 05:20 Labs: Abnormal Lab Results - Last 24 Hours (Table) 12/29/20 12/29/20 12/29/20 Range/Units 19:01 20:12 23:00 WBC (3.8-10.6) k/uL RBC (4.30-5.90) m/uL Hgb (13.0-17.5) gm/dL Hct (39.0-53.0) % ABG pH (7.35-7.45) ABG pCO2 (35-45) mmHg ABG HCO3 (21-25) mmol/L ABG Total CO2 (19-24) mmol/L ABG O2 Saturation (94-97) % Potassium (3.5-5.1) mmol/L BUN (9-20) mg/dL Creatinine (0.66-1.25) mg/dL Glucose (74-99) mg/dL POC Glucose (mg/dL) 164 H 161 H 170 H (75-99) mg/dL Calcium (8.4-10.2) mg/dL 12/30/20 12/30/20 12/30/20 Range/Units 05:20 05:20 05:22 WBC 14.7 H (3.8-10.6) k/uL RBC 2.41 L (4.30-5.90) m/uL Hgb 7.4 L D (13.0-17.5) gm/dL Hct 22.1 L (39.0-53.0) % ABG pH (7.35-7.45) ABG pCO2 (35-45) mmHg ABG HCO3 (21-25) mmol/L ABG Total CO2 (19-24) mmol/L ABG O2 Saturation (94-97) % Potassium 5.6 H (3.5-5.1) mmol/L BUN 80 H (9-20) mg/dL Creatinine 6.44 H (0.66-1.25) mg/dL Glucose 172 H (74-99) mg/dL POC Glucose (mg/dL) 180 H (75-99) mg/dL Calcium 6.8 L (8.4-10.2) mg/dL 12/30/20 12/30/20 Range/Units 05:35 11:26 WBC (3.8-10.6) k/uL RBC (4.30-5.90) m/uL Hgb (13.0-17.5) gm/dL Hct (39.0-53.0) % ABG pH 7.19 L* (7.35-7.45) ABG pCO2 72 H* (35-45) mmHg ABG HCO3 28 H (21-25) mmol/L ABG Total CO2 30 H (19-24) mmol/L ABG O2 Saturation 93.7 L (94-97) % Potassium (3.5-5.1) mmol/L BUN (9-20) mg/dL Creatinine (0.66-1.25) mg/dL Glucose (74-99) mg/dL POC Glucose (mg/dL) 163 H (75-99) mg/dL Calcium (8.4-10.2) mg/dL Assessment and Plan Assessment: Impression: Acute hypoxic respiratory failure secondary to acute COVID-19 and superimposed streptococcal pneumonia with streptococcal pneumonia bacteremia. Septic shock secondary to above. Mostly secondary to Streptococcus pneumonia and Streptococcus bacteremia History of laryngeal cancer and previous laryngectomy followed by radiation treatment in 2015. And the tracheostomy. Acute lactic acidosis secondary to sepsis and septic shock. Acute kidney injury secondary to sepsis and septic shock. Acute troponin leak. History of COPD. History of hypothyroidism. History of hypertension. Acute upper GI bleeding could be secondary to erosive gastritis or gastric ulcer disease. Patient is not a candidate for EGD, will recommend to continue Protonix. Recommendation: Continue ventilatory support. Until family decides on comfort care measures, and that is being planned to be done in the next few hours today. Continue nutritional support. Continue blood pressure support/pressors and fluids. Continue antibiotics Patient is not a candidate for remdesivir and definitely not a candidate for baricitinib Continue COVID-19 cocktail.Continue Protonix. Continue bronchodilators. I fully agree with comfort care measures, and this is to be done possibly in the next few hours. Critical care time is over 30 minutes Time with Patient: Greater than 30
[2020-12-31] MEDS ORDERED: VANCOMYCIN 1,750 MG in SODIUM CHLORIDE 0.9% 500 ML 500 ML IVPB ONE (06:00)
--- NOTE | 2020-12-31 14:50 | P.DS ---
Providers Date of admission: 12/24/20 14:17 Expected date of discharge: 12/30/20 Attending physician: Shirin Tran MD Consults: 12/24/20 14:18 Consult Physician Routine Consulting Provider: Pauly Ballard Consult Reason/Comments: COVID, PNA Do you want consulting provider notified?: Yes 12/26/20 07:51 Consult Physician Urgent Consulting Provider: Ewa Avery Consult Reason/Comments: jason Do you want consulting provider notified?: Yes 12/27/20 10:59 Consult Physician Stat Consulting Provider: Derrek Ann Consult Reason/Comments: HD catheter insertion Do you want consulting provider notified?: Already Contacted 12/27/20 23:45 Consult Physician Routine Consulting Provider: Ruth Reilly Consult Reason/Comments: A. Fib With RVR Do you want consulting provider notified?: Yes, Notify in am Primary care physician: [facility] Course: History of present illness 60 years old male with past medical history of laryngeal cancer status post laryngectomy and radiation in 2015 status post tracheostomy, history of hypothyroidism, COPD, hypertension comes in with acute shortness of breath associated with cough with phlegm production, reddish to brownish in color, associated with fever or chills and fatigue. Patient states his grandchildren were sick and he caught the infection from them. He also endorses right-sided chest pain on deep breath. Patient was noted to be afebrile pulse of 110 respiratory rate 18 blood pressure 76/48 oxygen saturation 85% on room air. Oxygen improved to 92% on trach ordered. EKG was obtained patient was sinus tachycardia no ST segment deviation noted with QTc interval of 418. Chest x-ray 12/24 suggestive of mild strandy density left lower lobe with was consolidation involving the right upper lung concerning for overlying bacterial pneumonia. Labs reviewed suggested of a visible 4.4 hemoglobin 18.2 platelets 137 INR 1.1 bicarb 19 BUN 32 creatinine 2.29, lactic acid of 5.5 AST 116 ALT 60 troponin 0.238. COVID is positive. We will give the patient will complete total 3 L IV bolus of normal saline. One dose of Rocephin and azithromycin. Neck ER. Pulmonary is consulted. Patient initiated on Solu-Medrol 60 every 6. DuoNeb will be continued as needed for shortness of breath. Patient will be initiated on remdesivir. Cardiology was consulted with increase in troponin. 12/25 Patient is seen today on 12/25. Patient got intubated yesterday 12/19 5 in the evening as unable to maintain oxygenation on trach collar. Patient was placed on mechanical ventilator with the settings of assist control rate of 34 tidal volume 450 FiO2 90% and PEEP of 12. ABG was obtained with a pH of 7.15 pCO2 48 pO2 112. Patient started on norepinephrine drip, vasopressin drip, propofol, fentanyl, Pneumovax and and bicarb drip. NG tube will be placed today to help with intestinal feeding. Blood cultures are positive for gram-positive cocci. Antibiotics patient from ceftriaxone and azithromycin to Zosyn and vancomycin. Labs were reviewed, patient has a WBC 11.3 hemoglobin 16 platelet 177 chloride 114 bicarb 17 BUN 40 creatinine 2.65, glucose 185 lactic acid of 4 calcium 6.3. 12/26 Patient remains intubated on droplet precautions for COVID. Continues to remain intubated on 70% FiO2 PEEP of 16 respiratory rate 34 arm tidal volume of 450. Because of the patient's afebrile pulse 75 respiratory rate 30 4R blood pressure 107/62 oxygen saturation 91% on if I O2 of 70%. Labs are reviewed patient is an insulin-dependent hemoglobin 14.1 platelet 137 d-dimer is elevated at 1.4. 7.3 and 46 pO2 of 78. Insulin 37 potassium 5 bicarb 21 and 59 creatinine 4.17 glucose 264 calcium 6 ionized calcium 3.6, LDH 2155 CRP 3056.2 albumin 2. Urine output was 180 ml in the last 24 hour. She'll see one dose of IV Lasix 80 mg today. If no improvement in urine output. Patient will be placed on renal replacement therapy. One dose 2 g of calcium gluconate given. Patient continues to remain on vasopressin and was febrile fed for pressure. Solu-Medrol a 60 IV every 6. Lantus initiated 15 units. Lovenox increased to 100 mg subcu twice a day. 12/27: Patient remains in intensive care unit. Patient remains intubated and on mechanical ventilation with tidal volume 450, FiO2 55, PEEP of 16. Nephrology has seen the patient and plan for hemodialysis and dialysis catheter being plac ed at the time of this evaluation. Noted that he has been made a DO NOT RESUSCITATE status. Repeat blood work reveals LVH 2344, C-reactive protein 57. Repeat chest x-ray showing bilateral interstitial infiltrates. Blood cultures are positive for Streptococcus pneumoniae. 12/28: Patient remains in the intensive care unit, intubated and on mechanical ventilation with tidal volume 450, FiO2 is increased to 100 during the night, PEEP 16. Heart rate is running in the 1 teens, respiratory rate 36, pulse ox 87%. Patient has been afebrile. Repeat blood work reveals WBC 14.7, hemoglobin 11.4, platelet count 112. Sodium 136, potassium 5.8, chloride 103, CO2 19, BUN 79 creatinine 6.7. TSH 0.153, free T4 0.69 urea blood sugars are running 181- 237. He is status post right femoral dialysis catheter placement by Dr. Ann and was started on hemodialysis yesterday. Patient has been oliguric. Patient also went into A. fib with RVR and started on amiodarone and heparin. Patient is on levo fed, propofol, Nimbex,, fentanyl. He is off vasopressin. Patient was made no code yesterday. 12/29: Patient remains in ICU, on mechanical ventilation. Patient is on assist control rate of 34 tidal volume 450 FiO2 100% and PEEP of 16. Chest x-ray shows worsening progression. Patient remains on Zosyn and vancomycin along with Solu- Medrol. The hebrew professor did have a discussion with the yesterday and nursing reports they're considering comfort care measures. Nephrology plans on dialysis again today, potassium was 6.1, BUN 72, creatinine 6.15. Patient did have dark red blood output from NG tube and heparin drip was discontinued. Hemoglobin was down to 10.0 this morning from 11.4 yesterday. 12/30: Patient reevaluated today, remains sedated on mechanical ventilation with assist control of 38, FiO2 100%. Hemoglobin down to 7.4 this morning with intermittent episodes of upper GI bleeding. [facility] did speak with again yesterday, she still in the process of considering comfort care measures patient remains a DO NOT RESUSCITATE. Patient on 12/30. Please see nursing documentation for details. DISCHARGE DIAGNOSES #1 septic shock secondary to COVID pneumonia with streptococcal pneumonia and streptococcal bacteremia. #2 acute hypoxic respiratory failure #3 acute COPD exacerbation #4 troponin elevation ruled out ACS. #5 hyperglycemia secondary to steroids. #6 hypertension. #7 hypocalcemia s/p calcium gluconate. #8 GERD #9 history of laryngeal cancer status post laryngectomy and radiation. #10 acute kidney injury on CK D3. #11 acute transaminitis likely secondary to COVID infection. #12 metabolic acidosis secondary to sepsis. #13 new-onset paroxysmal atrial fibrillation. #14 hypothyroidism Impression and plan of care have been directed as dictated by the signing physician. Gabriela Werner nurse practitioner acting as scribe for signing physician. Patient Condition at Discharge: Serious Plan - Discharge Summary Discharge Rx Participant: No New Discharge Prescriptions: No Action Omeprazole 40 mg PO DAILY Losartan Potassium [Cozaar] 50 mg PO DAILY Levothyroxine Sodium [Euthyrox] 88 mcg PO DAILY Discharge Medication List Levothyroxine Sodium [Euthyrox] 88 mcg PO DAILY 12/24/20 [History] Losartan Potassium [Cozaar] 50 mg PO DAILY 12/24/20 [History] Omeprazole 40 mg PO DAILY 12/24/20 [History] Follow up Appointment(s)/Referral(s): Diego Jones MD [Primary Care Provider] - 1-2 days Discharge Disposition: - Preliminary Cause of Preliminary Cause of : septic shock 2 COVID pn w streptococcal pn and strep bacteremia
== END 2020-12-30 17:44 | disposition expired | DRG 870 ==
LOC: EC 09:54 → 3SCARD 14:17 → 2SICU 17:33
PROVIDERS: ADMIT Internal Medicine; ATTEND Internal Medicine
PROC: 5A1955Z Respiratory Ventilation, Greater than 96 Consecutive Hours (ICD-10-PCS; principal; 2020-12-24)
PROC: 8E0ZXY6 Isolation (ICD-10-PCS; 2020-12-24)
PROC: 3E0333Z Introduction of Anti-inflammatory into Peripheral Vein, Percutaneous Approach (ICD-10-PCS; 2020-12-24)
PROC: 3E033XZ Introduction of Vasopressor into Peripheral Vein, Percutaneous Approach (ICD-10-PCS; 2020-12-24)
PROC: 0BH17EZ Insertion of Endotracheal Airway into Trachea, Via Natural or Artificial Opening (ICD-10-PCS; 2020-12-24)
PROC: 03HY32Z Insertion of Monitoring Device into Upper Artery, Percutaneous Approach (ICD-10-PCS; 2020-12-25)
PROC: 4A133B1 Monitoring of Arterial Pressure, Peripheral, Percutaneous Approach (ICD-10-PCS; 2020-12-25)
PROC: 4A133J1 Monitoring of Arterial Pulse, Peripheral, Percutaneous Approach (ICD-10-PCS; 2020-12-25)
PROC: 06HM33Z Insertion of Infusion Device into Right Femoral Vein, Percutaneous Approach (ICD-10-PCS; 2020-12-27)
DX: A41.89 Other specified sepsis (principal); U07.1 COVID-19; I21.A1 Myocardial infarction type 2; J12.82 Pneumonia due to coronavirus disease 2019; J13 Pneumonia due to Streptococcus pneumoniae; J96.01 Acute respiratory failure with hypoxia; J69.0 Pneumonitis due to inhalation of food and vomit; N17.0 Acute kidney failure with tubular necrosis; R65.21 Severe sepsis with septic shock; E87.4 Mixed disorder of acid-base balance; I42.9 Cardiomyopathy, unspecified; J44.0 Chronic obstructive pulmonary disease with (acute) lower respiratory infection; K92.2 Gastrointestinal hemorrhage, unspecified; R06.02 Shortness of breath; A40.9 Streptococcal sepsis, unspecified; E03.9 Hypothyroidism, unspecified; E83.51 Hypocalcemia; E87.5 Hyperkalemia; I48.0 Paroxysmal atrial fibrillation; K21.9 Gastro-esophageal reflux disease without esophagitis; N18.9 Chronic kidney disease, unspecified; E86.0 Dehydration; Z66 Do not resuscitate; Z51.5 Encounter for palliative care; Z93.0 Tracheostomy status; I12.9 Hypertensive chronic kidney disease with stage 1 through stage 4 chronic kidney disease, or unspecified chronic kidney disease; Z78.9 Other specified health status; Z79.51 Long term (current) use of inhaled steroids; Z79.890 Hormone replacement therapy; Z79.899 Other long term (current) drug therapy; Z80.8 Family history of malignant neoplasm of other organs or systems; R74.01 Elevation of levels of liver transaminase levels; Z81.3 Family history of other psychoactive substance abuse and dependence; Z85.21 Personal history of malignant neoplasm of larynx; Z87.891 Personal history of nicotine dependence; Z92.3 Personal history of irradiation
CPT/HCPCS: 36415; 36600; 71045; 76770; 80048; 80053; 80202; 82272; 82330; 82805; 83036; 83605; 83615; 83735; 83880; 84100; 84145; 84439; 84443; 84484; 85025; 85027; 85379; 85610; 85652; 85730; 86140; 86706; 86850; 86900; 86901; 87040; 87070; 87077; 87086; 87186; 87205; 87340; 87635; 90935; 93005; 93308; 93970; 94002; 94003; 94640; 96361; 96374; 99291